=== PATIENT | female | born 1940 | race Caucasian/White ===

== ENCOUNTER 2017-05-10 07:22 | Inpatient (IN) ==
--- NOTE | 2017-05-10 07:32 | Emergency Department Report ---
Fall HPI - General Chief Complaint: Fall Stated Complaint: fell,left leg injury,seizure Time Seen by Provider: 05/10/17 07:32 Source: patient, EMS Mode of arrival: EMS - History of Present Illness HPI Narrative: Patient is a 76-year-old female from [place]. Patient is out visiting, this morning as patient was trying to get out of the shower patient slipped and fell, unsure if she hit her head. Family states that she might a possibly had a seizure at that point. Patient complaining of left femur pain EMS was called , patient alert and oriented on their arrival, brought to the emergency department. In the emergency Department patient was found to have oxygen saturations at 86%, does have some bilateral pitting edema of her legs. Patient states that she is normally supposed to take 40 of Lasix, however 2 weeks ago she turned herself down to 20 of Lasix because she "didn't like the way she felt". Patient placed on 2 L by nasal cannula, brought here for evaluation and treatment. MD complaint: fall Onset (ago): hour(s) Fall from: standing Fall witnessed: no Prolonged down time: unclear Context: tripped/slipped Associated symptoms (after fall): shortness of breath - Related Data Home Medications Medication Instructions Recorded Confirmed Levothyroxine Sodium 50 mcg PO DAILY 05/10/17 05/15/17 Losartan [Cozaar] 100 mg PO DAILY 05/10/17 05/15/17 Omeprazole [Prilosec] 20 mg PO DAILY 05/10/17 05/15/17 Verapamil HCl [Verapamil ER Pm] 300 mg PO HS 05/10/17 05/15/17 Previous Rx's Medication Instructions Recorded Acetaminophen [Tylenol] 650 mg PO Q5H PRN tablet 05/15/17 Bisacodyl Supp [Dulcolax] 10 mg RECTALLY DAILY PRN supp 05/15/17 Hydrocodone/APAP 7.5/325 [[place] 1 - 2 tab PO Q6H PRN tablet 05/15/17 7.5/325] Senna + Docusate [Senna Plus 1 tab PO BID tablet 05/15/17 Tablet] Acetaminophen [Tylenol] 650 mg PO Q5H PRN tablet 05/29/17 Cholestyramine/Aspartame 4 g PO Q6H PRN powd.pack 05/29/17 [Cholestyramine Light Packet] Enoxaparin Sodium [Lovenox] 40 mg SQ Q24H 14 Days #0 syringe 05/29/17 Furosemide [Lasix] 40 mg PO DAILY tablet 05/29/17 Hydrocodone/APAP 5/325 [[place] 1 tab PO Q4H PRN #30 tablet 05/29/17 5/325] Milk of Magnesia [Mom] 30 ml PO DAILY PRN udc 05/29/17 Potassium Chloride [K-Dur] 20 meq PO BIDWM tablet 05/29/17 Allergies Allergy/AdvReac Type Severity Reaction Status Date / Time amoxicillin Allergy Rash Verified 05/10/17 07:26 Sulfa (Sulfonamide Allergy Rash Verified 05/10/17 07:26 Antibiotics) Iodinated Contrast- Oral and AdvReac Unknown Nausea and Verified 05/10/17 09:18 IV Dye Vomiting Review of Systems Constitutional: Denies: fever, chills, weakness ENT: Denies: ear pain, throat pain Cardiovascular: Reports: dyspnea on exertion. Denies: chest pain, palpitations Respiratory: Denies: cough, dyspnea, wheezes Gastrointestinal: Denies: abdominal pain, nausea, vomiting Neurological: Reports: weakness (generalized nonspecific). Denies: headache PFSH Patient Stated Medical History Hypertension Yes Other GI Yes: DIVERTICULITIS Shingles Yes Post Menopausal Yes Clinic Medical History (Last Updated 06/08/17 @ 09:50 by Wally Syed Vikash) GERD (gastroesophageal reflux disease) (Acute Medical) Hypothyroidism (Acute Medical) Hypertension (Acute Medical) - Social History Smoking status: Never smoker Substance use type: does not use Alcohol intake frequency: does not drink Physical Exam - Limitations Limitations: no limitations - General General appearance: alert, in no apparent distress - Head Head exam: normocephalic, normal inspection - Eye Eye exam: Present: PERRL, EOMI - ENT ENT exam: Present: normal oropharynx, mucous membranes moist - Neck Neck exam: Present: full ROM, trachea midline - Chest Chest inspection: Present: symmetric chest wall rise. Absent: tenderness - Respiratory Respiratory exam: Present: normal lung sounds bilaterally. Absent: respiratory distress, wheezes, stridor - Cardiovascular Cardiovascular exam: Present: regular rate, normal rhythm, normal heart sounds, other (2+ bilateral pitting edema) - Abdominal Exam Abdominal exam: Present: soft. Absent: distention, tenderness - Expanded Lower Extremity Exam Hip/Pelvis exam: Present: pelvis stable. Absent: tenderness, ecchymosis, deformity, crepitus Upper leg exam: Present: tenderness. Absent: swelling, abrasion, laceration, ecchymosis, deformity Knee exam: Absent: tenderness, swelling, abrasion, laceration, ecchymosis, deformity Lower leg exam: Present: full ROM. Absent: tenderness, abrasion, laceration, ecchymosis Ankle exam: Absent: tenderness, swelling, abrasion, laceration, ecchymosis Neurovascular/Tendon exam: Present: normal capillary refill - Skin Skin exam: Present: warm, dry - Neurological Exam Neurological exam: Present: alert, oriented X3 - Psychiatric Psychiatric exam: Present: normal affect, normal mood Course Vital Signs Temperature 98.2 F 05/10/17 07:22 Pulse Rate 88 05/10/17 07:22 Respiratory Rate 16 05/10/17 07:22 Blood Pressure 195/84 H 05/10/17 07:22 Pulse Oximetry 86 L 05/10/17 07:22 Temperature 98.9 F 05/15/17 12:00 Pulse Rate 73 05/15/17 12:00 Respiratory Rate 18 05/15/17 12:00 Blood Pressure 172/84 H 05/15/17 12:00 Pulse Oximetry 93 05/15/17 12:00 Fall - Differential Diagnosis Likely: syncope, compression fracture - Medical Records Attestation: I reviewed the patient's medical records. - Lab Data Attestation: I reviewed the patient's lab results. Result diagrams: 05/15/17 04:51 05/15/17 04:51 Lab Results 05/10/17 05/10/17 05/10/17 Range/Units 07:36 07:36 07:36 WBC 16.0 H (4.5-11.0) T/MM3 RBC 3.63 L (4.00-5.20) M/MM3 Hgb 11.0 L (12-16) GM/DL Hct 32.7 L (36-46) % MCV 90.1 (80-100) UM3 MCH 30.3 (26-34) UUG MCHC 33.6 (31-37) GM/DL RDW Std Deviation 43.9 (36.9-50.2) FL Plt Count 207 (130-400) T/MM3 MPV 10.3 (9.4-12.4) UM3 Immature Gran % (Auto) Not performed Neut % (Auto) Not performed Lymph % (Auto) Not performed [place] % (Auto) Not performed Eos % (Auto) Not performed Baso % (Auto) Not performed Neut # Not performed Lymph # Not performed [place] # Not performed Eos # Not performed Baso # Not performed Abs Immat Gran (auto) Not performed Neutrophils % (Manual) 90.0 H (33-66) % Band Neutrophils % 2.0 (0-6) % Lymphocytes % (Manual) 1.0 L (23-45) % Monocytes % (Manual) 7.0 (0-9.0) % Neutrophils # (Manual) 14.4 H (1.8-7.7) T/MM3 Band Neutrophils # 0.3 T/MM3 Lymphocytes # (Manual) 0.2 L (1-4.8) T/MM3 Monocytes # (Manual) 1.1 H (0-0.8) T/MM3 Poikilocytosis 1+ Anisocytosis 1+ Ovalocytes 1+ RBC Morph Comment Abnormal D-Dimer 53307 H (0-230) NG/ML Turbidity < 20 (0-20) Sodium 128 L (134-144) MEQ/L Potassium 4.4 (3.6-5) MEQ/L Chloride 91 L (98-107) MEQ/L Carbon Dioxide 27 (22-30) MEQ/L Anion Gap 10 (5-15) MEQ/L BUN 17.0 (7-17) MG/DL Creatinine 0.9 (0.7-1.2) MG/DL GFR Calculation 61 BUN/Creatinine Ratio 19 (6-26) RATIO Glucose 124 H (65-110) MG/DL Calculated Osmolality 250 L (261-280) MOSM/KG Calcium 9.8 (8.4-10.2) MG/DL Total Bilirubin 1.30 (0.20-1.30) MG/DL Icterus Index < 2 (0-7) AST 32 (14-36) U/L ALT 32 (9-52) U/L Alkaline Phosphatase 114 (38-126) U/L Troponin I < 0.012 (0-0.12) ng/ml B-Natriuretic Peptide (0-175) pg/mL Total Protein 7.4 (6.3-8.2) G/DL Albumin 4.4 (3.5-5.0) G/DL Globulin 3.0 (2.4-3.6) G/DL Albumin/Globulin Ratio 1.5 (1.1-2.2) RATIO Plasma Lactate (0.6-2.2) MMOL/L Procalcitonin NG/ML Specimen Hemolysis 83 H (0-25) Ur Collection Type Urine Color (YELLOW) Urine Clarity Urine pH (5.0-8.0) Ur Specific [place] (1.015-1.025) Urine Protein (NEGATIVE) Urine Glucose (UA) (NEGATIVE) Urine Ketones (NEGATIVE) Urine Occult Blood (NEGATIVE) Urine Nitrate (NEGATIVE) Urine Bilirubin (NEGATIVE) Urine Urobilinogen (NORMAL) EU/DL Ur Leukocyte Esterase (NEGATIVE) Urine RBC (0-3) /HPF Urine WBC (0-5) /HPF Ur Squamous Epith Cells Urine Bacteria (NEGATIVE) Ur Culture Indicated? 05/10/17 05/10/17 05/10/17 Range/Units 07:36 08:45 11:03 WBC (4.5-11.0) T/MM3 RBC (4.00-5.20) M/MM3 Hgb (12-16) GM/DL Hct (36-46) % MCV (80-100) UM3 MCH (26-34) UUG MCHC (31-37) GM/DL RDW Std Deviation (36.9-50.2) FL Plt Count (130-400) T/MM3 MPV (9.4-12.4) UM3 Immature Gran % (Auto) Neut % (Auto) Lymph % (Auto) [place] % (Auto) Eos % (Auto) Baso % (Auto) Neut # Lymph # [place] # Eos # Baso # Abs Immat Gran (auto) Neutrophils % (Manual) (33-66) % Band Neutrophils % (0-6) % Lymphocytes % (Manual) (23-45) % Monocytes % (Manual) (0-9.0) % Neutrophils # (Manual) (1.8-7.7) T/MM3 Band Neutrophils # T/MM3 Lymphocytes # (Manual) (1-4.8) T/MM3 Monocytes # (Manual) (0-0.8) T/MM3 Poikilocytosis Anisocytosis Ovalocytes RBC Morph Comment D-Dimer (0-230) NG/ML Turbidity (0-20) Sodium (134-144) MEQ/L Potassium (3.6-5) MEQ/L Chloride (98-107) MEQ/L Carbon Dioxide (22-30) MEQ/L Anion Gap (5-15) MEQ/L BUN (7-17) MG/DL Creatinine (0.7-1.2) MG/DL GFR Calculation BUN/Creatinine Ratio (6-26) RATIO Glucose (65-110) MG/DL Calculated Osmolality (261-280) MOSM/KG Calcium (8.4-10.2) MG/DL Total Bilirubin (0.20-1.30) MG/DL Icterus Index (0-7) AST (14-36) U/L ALT (9-52) U/L Alkaline Phosphatase (38-126) U/L Troponin I (0-0.12) ng/ml B-Natriuretic Peptide 755 H (0-175) pg/mL Total Protein (6.3-8.2) G/DL Albumin (3.5-5.0) G/DL Globulin (2.4-3.6) G/DL Albumin/Globulin Ratio (1.1-2.2) RATIO Plasma Lactate 1.3 (0.6-2.2) MMOL/L Procalcitonin NG/ML Specimen Hemolysis (0-25) Ur Collection Type Urine, clean catch Urine Color Yellow (YELLOW) Urine Clarity Clear Urine pH 7.0 (5.0-8.0) Ur Specific [place] 1.010 L (1.015-1.025) Urine Protein 1+ A (NEGATIVE) Urine Glucose (UA) Negative (NEGATIVE) Urine Ketones Negative (NEGATIVE) Urine Occult Blood 1+ A (NEGATIVE) Urine Nitrate Positive A (NEGATIVE) Urine Bilirubin Negative (NEGATIVE) Urine Urobilinogen 0.2 (NORMAL) EU/DL Ur Leukocyte Esterase Negative (NEGATIVE) Urine RBC None seen (0-3) /HPF Urine WBC 0-1 (0-5) /HPF Ur Squamous Epith Cells 0-5 Urine Bacteria 3+ H (NEGATIVE) Ur Culture Indicated? Cult reflexed &setup 05/10/17 Range/Units 11:03 WBC (4.5-11.0) T/MM3 RBC (4.00-5.20) M/MM3 Hgb (12-16) GM/DL Hct (36-46) % MCV (80-100) UM3 MCH (26-34) UUG MCHC (31-37) GM/DL RDW Std Deviation (36.9-50.2) FL Plt Count (130-400) T/MM3 MPV (9.4-12.4) UM3 Immature Gran % (Auto) Neut % (Auto) Lymph % (Auto) [place] % (Auto) Eos % (Auto) Baso % (Auto) Neut # Lymph # [place] # Eos # Baso # Abs Immat Gran (auto) Neutrophils % (Manual) (33-66) % Band Neutrophils % (0-6) % Lymphocytes % (Manual) (23-45) % Monocytes % (Manual) (0-9.0) % Neutrophils # (Manual) (1.8-7.7) T/MM3 Band Neutrophils # T/MM3 Lymphocytes # (Manual) (1-4.8) T/MM3 Monocytes # (Manual) (0-0.8) T/MM3 Poikilocytosis Anisocytosis Ovalocytes RBC Morph Comment D-Dimer (0-230) NG/ML Turbidity (0-20) Sodium (134-144) MEQ/L Potassium (3.6-5) MEQ/L Chloride (98-107) MEQ/L Carbon Dioxide (22-30) MEQ/L Anion Gap (5-15) MEQ/L BUN (7-17) MG/DL Creatinine (0.7-1.2) MG/DL GFR Calculation BUN/Creatinine Ratio (6-26) RATIO Glucose (65-110) MG/DL Calculated Osmolality (261-280) MOSM/KG Calcium (8.4-10.2) MG/DL Total Bilirubin (0.20-1.30) MG/DL Icterus Index (0-7) AST (14-36) U/L ALT (9-52) U/L Alkaline Phosphatase (38-126) U/L Troponin I (0-0.12) ng/ml B-Natriuretic Peptide (0-175) pg/mL Total Protein (6.3-8.2) G/DL Albumin (3.5-5.0) G/DL Globulin (2.4-3.6) G/DL Albumin/Globulin Ratio (1.1-2.2) RATIO Plasma Lactate (0.6-2.2) MMOL/L Procalcitonin < 0.05 NG/ML Specimen Hemolysis (0-25) Ur Collection Type Urine Color (YELLOW) Urine Clarity Urine pH (5.0-8.0) Ur Specific [place] (1.015-1.025) Urine Protein (NEGATIVE) Urine Glucose (UA) (NEGATIVE) Urine Ketones (NEGATIVE) Urine Occult Blood (NEGATIVE) Urine Nitrate (NEGATIVE) Urine Bilirubin (NEGATIVE) Urine Urobilinogen (NORMAL) EU/DL Ur Leukocyte Esterase (NEGATIVE) Urine RBC (0-3) /HPF Urine WBC (0-5) /HPF Ur Squamous Epith Cells Urine Bacteria (NEGATIVE) Ur Culture Indicated? - Radiology Data Attestation: I reviewed the patient's radiology results. X-ray left femur: No acute fractures X-ray left knee: Tibial plateau fracture X-ray left tib-fib: Tibial plateau fracture CT scan head: No acute intracranial findings CT PE: No acute findings - EKG Data EKG #1 EKG attestation: Yes: I reviewed and interpreted this EKG. Rate: normal Rhythm: NSR Heart block present: 1st Degree Interpretation: no acute changes Disposition Clinical Impression: Compression fracture Disposition: 02 To [facility] [place] Acute Care Condition: Stable - Seen By: physician
[2017-05-10] MEDS ORDERED: FUROSEMIDE 20 MG/2 ML INJECTION IVP ONE (07:35)
--- NOTE | 2017-05-10 07:55 | CT Scan Report ---
Indication: fall, possible seizure PROCEDURE: CT head/brain wo con: Encounter: Initial Comparison: None Technique: Axial CT images through the head were performed without contrast. Iterative Reconstruction dose reducing technique was utilized. FINDINGS: The ventricles are of normal size, shape, and contour for the patient's age. There are scattered areas of low attenuation in the white matter which most likely represent changes from chronic microvascular ischemia. The brainstem, cerebellum, and cerebral hemispheres otherwise have a normal morphology and CT attenuation. There is no evidence of midline displacement. No hemorrhage, signs of acute territorial stroke, mass effect, mass lesions, or edema is evident. The visualized portions of the skull base, midface, and calvarium demonstrate no abnormality. The paranasal sinuses are well aerated and free of significant disease. The tympanic and mastoid cavities appear normal. IMPRESSION: No acute intracranial abnormality or hemorrhage. .
--- NOTE | 2017-05-10 07:58 | XRay Report ---
Indication: shortness of air, fall, oxygen requiring now PROCEDURE: XR chest 1V: Encounter: Initial Comparison: None Findings: Linear atelectasis or scarring in the left upper lobe. Lung ortez are otherwise clear. No pleural effusion or pneumothorax. Cardiac silhouette is at the upper limits of normal to mildly enlarged. Mediastinal contours are grossly normal. Impression: No acute cardiopulmonary disease. .
--- NOTE | 2017-05-10 08:05 | XRay Report ---
Indication: fall, left femur pain PROCEDURE: AP and Lateral views of the Left Femur Encounter: Initial Comparison: None Findings: Mildly depressed fracture of the lateral tibial plateau. No acute fracture seen in the femur. Total hip prosthesis appears intact. Impression: Closed posttraumatic lateral tibial plateau fracture. .
[2017-05-10] MEDS: SALINE FLUSH 10ml SYRINGE IVF PRN ×6 (08:06→21:54)
--- NOTE | 2017-05-10 08:12 | XRay Report ---
Indication: fall left tib-fib pain PROCEDURE: XR tib/fib LT 2V: Encounter: Initial Comparison: None Findings: Depressed fracture of the lateral tibial plateau. No additional acute fracture. Evidence of old distal trauma with healed fibular fracture and internally fixed medial malleolar fracture. Impression: Lateral tibial plateau fracture. .
[2017-05-10] MEDS ORDERED: FentaNYL 100 MCG/2 ML INJECTION IVP ONE (08:14)
[2017-05-10] MEDS ORDERED: HYDRALAZINE 20 MG/ML INJECTION IVP ONE (08:48)
[2017-05-10] MEDS ORDERED: NS 100 ML ONE (09:00)
[2017-05-10] MEDS ORDERED: IOHEXOL 350mg/ml 75ml INJECTION ONE (09:00)
[2017-05-10] MEDS ORDERED: SALINE FLUSH 10ml SYRINGE ONE (09:00)
[2017-05-10] MEDS ORDERED: ONDANSETRON 4 MG/2 ML INJECTION IV ONE (09:19)
[2017-05-10] MEDS ORDERED: PROMETHAZINE 25 MG INJECTION IVP ONE (09:19)
--- NOTE | 2017-05-10 10:07 | CT Scan Report ---
Indication: tibial plateau fracture, requested by orthopedist PROCEDURE: CT LE LT wo con: Encounter: Initial Comparison: None Technique: Axial noncontrast CT imaging through the left knee region was performed with coronal and sagittal two-dimensional reformats. Three-dimensional surface shaded volume rendered imaging was also created and reviewed. Automated Exposure Control and Iterative Reconstruction dose reducing techniques were utilized. Findings: Depressed fracture of the lateral tibial plateau with approximately 8 mm of articular surface depression. 3 mm articular surface gap seen on coronal image #21. There is a fracture line extending through the medial tibial spine seen on coronal image #26. No additional acute fractures seen. No dislocation. Mild bony demineralization. Joint effusion present. Impression: Depressed lateral tibial plateau fracture with extension into the tibial spines. .
--- NOTE | 2017-05-10 10:07 | XRay Report ---
Indication: fall, tibial plateau fracture request by orthopedic PROCEDURE: XR knee LT 2V: Encounter: Initial Comparison: CT of the knee from today Findings: Depressed lateral tibial plateau fracture is again noted. There is a nondisplaced fracture line extending into the medial tibial spine also noted. Moderate medial compartment joint space narrowing. Joint effusion present. Arterial vascular calcifications. Impression: Closed posttraumatic tibial plateau fracture predominantly involving the lateral side. .
--- NOTE | 2017-05-10 10:10 | CT Scan Report ---
Indication: d-dimer 55K, shortness of air on oxygen PROCEDURE: CT angio pulm emboli: Encounter: Initial Comparison: None Technique: Axial CT pulmonary angiographic phase images were performed through the chest after the administration of intravenous contrast. Coronal and Sagittal MIP reconstructed images were created and reviewed. Automated Exposure Control and Iterative Reconstruction dose reducing techniques were utilized. Contrast: Omnipaque 350 74 mL Findings: Pulmonary arteries: Exam is diagnostic to the segmental pulmonary arterial level. No filling defects identified to suggest a pulmonary embolus. Subsegmental pulmonary arteries cannot be well evaluated due to bolus timing and motion artifact. Other findings: No pneumothorax. Mild medial right lower lobe atelectasis. Trace left basilar atelectasis. No focal pneumonia. Significant respiratory motion artifact limiting sensitivity. The central airways are grossly patent. No axillary or mediastinal adenopathy. Heart size is mildly enlarged without pericardial effusion. Moderate sized hiatal hernia. Upper abdomen shows no acute findings. Moderate to severe mid thoracic compression fracture of T7 could be a recent fracture given the presence of gas within the fracture cleft. Impression: 1. No pulmonary embolus. 2. Possibly recent T7 compression fracture. .
--- NOTE | 2017-05-10 11:30 | Orthopedic Consult Note ---
Orthopedic Consultation HPI - Consultation Info Consult Date: 05/10/17 [facility] Patient Stated Medical History Hypertension Yes Other GI Yes: DIVERTICULITIS Shingles Yes Post Menopausal Yes - Social History Smoking status: Never smoker Medications Home Medications Medication Instructions Recorded Confirmed Type Furosemide [Lasix] 20 mg PO DAILY 05/10/17 05/10/17 History Levothyroxine Sodium 20 mcg PO DAILY 05/10/17 05/10/17 History Losartan [Cozaar] 100 mg PO DAILY 05/10/17 05/10/17 History Omeprazole [Prilosec] 20 mg PO DAILY 05/10/17 05/10/17 History Potassium Chloride [K-Dur] 10 meq PO DAILY 05/10/17 05/10/17 History Verapamil HCl [Verapamil ER Pm] 300 mg PO HS 05/10/17 05/10/17 History Allergies Allergy/AdvReac Type Severity Reaction Status Date / Time amoxicillin Allergy Rash Verified 05/10/17 07:26 Sulfa (Sulfonamide Allergy Rash Verified 05/10/17 07:26 Antibiotics) Iodinated Contrast- Oral and AdvReac Unknown Nausea and Verified 05/10/17 09:18 IV Dye Vomiting Orthopedic Exam Vital signs: Temperature 98.2 F 05/10/17 09:00 Pulse Rate 98 05/10/17 10:15 Respiratory Rate 51 H 05/10/17 10:15 Blood Pressure 154/105 H 05/10/17 10:07 Pulse Oximetry 94 05/10/17 10:07 - Labs Result Diagrams: 05/10/17 07:36 05/10/17 07:36 Abnormal lab results 05/10/17 05/10/17 05/10/17 Range/Units 07:36 07:36 07:36 WBC 16.0 H (4.5-11.0) T/MM3 RBC 3.63 L (4.00-5.20) M/MM3 Hgb 11.0 L (12-16) GM/DL Hct 32.7 L (36-46) % Neutrophils % (Manual) 90.0 H (33-66) % Lymphocytes % (Manual) 1.0 L (23-45) % Neutrophils # (Manual) 14.4 H (1.8-7.7) T/MM3 Lymphocytes # (Manual) 0.2 L (1-4.8) T/MM3 Monocytes # (Manual) 1.1 H (0-0.8) T/MM3 D-Dimer 15871 H (0-230) NG/ML Sodium 128 L (134-144) MEQ/L Chloride 91 L (98-107) MEQ/L Glucose 124 H (65-110) MG/DL Calculated Osmolality 250 L (261-280) MOSM/KG B-Natriuretic Peptide (0-175) pg/mL Specimen Hemolysis 83 H (0-25) Ur Specific [place] (1.015-1.025) Urine Protein (NEGATIVE) Urine Occult Blood (NEGATIVE) Urine Nitrate (NEGATIVE) Urine Bacteria (NEGATIVE) 05/10/17 05/10/17 Range/Units 07:36 08:45 WBC (4.5-11.0) T/MM3 RBC (4.00-5.20) M/MM3 Hgb (12-16) GM/DL Hct (36-46) % Neutrophils % (Manual) (33-66) % Lymphocytes % (Manual) (23-45) % Neutrophils # (Manual) (1.8-7.7) T/MM3 Lymphocytes # (Manual) (1-4.8) T/MM3 Monocytes # (Manual) (0-0.8) T/MM3 D-Dimer (0-230) NG/ML Sodium (134-144) MEQ/L Chloride (98-107) MEQ/L Glucose (65-110) MG/DL Calculated Osmolality (261-280) MOSM/KG B-Natriuretic Peptide 755 H (0-175) pg/mL Specimen Hemolysis (0-25) Ur Specific [place] 1.010 L (1.015-1.025) Urine Protein 1+ A (NEGATIVE) Urine Occult Blood 1+ A (NEGATIVE) Urine Nitrate Positive A (NEGATIVE) Urine Bacteria 3+ H (NEGATIVE) H & H 05/10/17 Range/Units 07:36 Hgb 11.0 L (12-16) GM/DL Hct 32.7 L (36-46) % Hospital Course Summary Disclaimer: The visit summary below is not to be considered part of the above Progress Note.
[2017-05-10 11:39] VITALS: BMI 34.2
[2017-05-10] MEDS ORDERED: NS FLUSH BAG 500ml IV PRN (11:55)
[2017-05-10] MEDS: MORPHINE SULFATE 4 MG SYRINGE IVP PRN ×3 (11:56→21:54)
[2017-05-10] MEDS: LEVOFLOXACIN PB 500 MG/100 ML BAG IV SCH (11:57)
--- NOTE | 2017-05-10 12:43 | Consultation ---
DATE OF CONSULTATION 05/10/[address] Ortega CONSULTING PHYS[address] Dr. Sylvester Mandel DIAGNOSIS 1. Closed left Schatzker II lateral tibial plateau fracture. 2. T7 compression fracture, age indeterminate. 3. Urinary tract infection with leukocytosis. RECOMMENDATIONS I carefully discussed the findings today with both the patient and her who is at the bedside. They are planning on leaving the area to return home to [place], [place] early next week. They were planning to go to [place] but they think they would like to proceed home as she will need continued care. We carefully discussed that her tibial plateau fracture is indicated for surgery given the amount of depression of the joint surface of the lateral compartment. She does have preexisting osteoarthritis of the left knee, however , this amount of depression would likely lead to instability and I do feel this needs to be fixed. They are uncertain if they would like to have surgery here or wait to get home to her orthopedic surgeon back in [place]. I did tell them if they wish to have this fixed elsewhere, they should forego their trip to [place] and proceed directly home once she is medically stable. We did discuss the benefits and the other factors associated with having surgery here versus back home. Certainly followup for the surgery would need to be arranged for back home whether we did surgery here or she waited to go back home. Regardless she would be nonweightbearing on the left lower extremity with or without surgery. Her initial inclination is she would prefer to have surgery back home but they are going to wait and see how she does clearing medically. Dr. Ortega anticipates this may take 2-3 days for her to get cleared medically. If she were cleared for surgery at that time, she would likely have an additional 2-3 day stay postoperatively. We did discuss general risks of surgery including anesthetic, risk of infection, risk of DVT, risk of continued pain and decreased mobility and others. They are going to continue to wait and see how she does medically and later determine whether they would like to have surgery here or just return home for this. In the interim, I did recommend placing her in a knee immobilizer. Recommend using LISSETTE hose and SCDs for DVT prevention. I am okay with Lovenox and utilization as well. She is to be nonweightbearing on her left lower extremity. Recommend ice to the knee. Regarding her T7 compression fracture, on exam she really has no tenderness and no pain with flexion through the spine. My inclination is this is possibly an old fracture but it is quite moderate to severe on her CT scan. If she begins to experience more back pain, would recommend further imaging. Consideration could be made for a bone scan to a help determine acuity, if not an MRI, and at the minimum plain T and L films. Recommend continuing with pain management for her fracture. She also has fairly significant edema and will likely be diuresed by the medical team. Will plan to follow along closely with the patient as she tries to determine how she would like to proceed with surgery, either here or back home. HISTORY OF PRESENT ILLNESS Mrs. Rodríguez is a very pleasant 76-year-old female who primarily resides in the [place], [place] area. They had traveled to [place], [place] where they "snowbird" and had been there since April 08. They then flew to the [facility] on May 09. They were staying at [place] [facility] as they were visiting some friends. She states she had been feeling fine. She had recently halved her dose of Lasix because she "didn't like the way it was making her feel". She had noted increased bilateral leg edema during this time . This morning she was getting out of the shower and stepped onto a wet floor. She states she slipped and fell down and had immediate onset of left leg pain. Her came in and witnessed her in what he described as almost seizure-like activity as she became somewhat rigid and postured. The patient denies any loss of consciousness herself but the thinks that she may have. There is no visible head trauma. She complains of no headache or problems. She was unable to weightbear and was subsequently brought to [facility]. She was noted to have low oxygen saturation. A D-dimer was ordered and found to be 54,000+. It was elected to evaluate her for a pulmonary embolus. CT angiogram was found to be negative for pulmonary embolus , however, there was noted to be this moderate to severe T7 compression fracture that was read as possibly acute given some gas amongst the fracture fragments. Again the patient is complaining of no lower extremity issues. No numbness or tingling but does complain of left knee pain. The patient is one year status post left total hip arthroplasty. She has previously had a right total hip arthroplasty as well and also an open reduction internal fixation of her left ankle. She has otherwise been ambulating fairly normally and having no other complaints or issues. Further workup did show a leukocytosis with an elevated white count of 16. She was also found to have a urinary tract infection with 3+ bacteria. Cultures were being obtained as well. She was started on Levaquin for this. Regarding the knee, the patient complains of primarily global knee pain though it is more localized laterally. She denies any significant prior knee pain but notes that both knees ache on occasion. It is an aching, throbbing type pain. It is sharp with any motion of the knee. She denies hip or pelvic pain. Denies contralateral leg pain. As mentioned, pain is exacerbated with motion and any weightbearing through the knee on the left side. She has been given pain medicine at the direction of Dr. Castillo in the ER. REVIEW OF SYSTEMS CONSTITUTIONAL: Denies chills, nausea, vomiting, recent fevers, night sweats or weight loss. EENT: Denies any change in vision. No blurred vision. No pain or photophobia. Ear, nose, mouth and throat: Denies headaches, vertigo, lightheadedness, head injury. CARDIOVASCULAR: Denies chest pain, palpitations, syncopal episodes. Positive for bilateral leg and pedal edema. RESPIRATORY: Denies recent cough, dyspnea, wheezing, chest congestion. GI: Does have a history of diverticulitis which is relatively well-controlled. Also history of gastroesophageal reflux disease. No change in bowel habits. No diarrhea or constipation. : Denies any recent dysuria, increased frequency. MUSCULOSKELETAL: As per HPI. SKIN: All surgical incisions are well healed. No active wounds. No rash. NEUROLOGIC: No recent numbness or tingling. No paresthesias or radicular pain. Questionable seizure activity after a fall today though no prior history of seizure activity. No abnormal gait. PSYCHIATRIC: Denies anxiety, depression. ENDOCRINE: No abnormal cold intolerance or heat intolerance. HEMATOLOGIC: No easy bleeding or bruising. Patient is not on anticoagulants. PAST MEDICAL HISTORY Hypertension. Diverticulitis. Gastroesophageal reflux disease. Osteoarthritis. MEDICATIONS Reviewed and the EMR. HOME MEDICATIONS Omeprazole. Losartan. Verapamil. Potassium . Levothyroxine. Furosemide. ALLERGIES AMOXICILLIN, SULFA, IODINATED CONTRAST. SURGICAL HISTORY Known is bilateral total hip arthroplasty and left ankle ORIF. SOCIAL HISTORY Patient is a nonsmoker, nondrinker. Denies illicit drug use. 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 Calls [place], [place] her home though also spends time in [place], [place]. PHYSICAL EXAMINATION VITAL SIGNS: Blood pressure 217/142. Pulse 83. O2 sat 86% on 2 liters nasal cannula. CONSTITUTIONAL: Patient is an obese 76-year-old female who is in mild distress secondary to left knee pain from her fall and injury. She is able to comply with the exam. PSYCH: Patient is alert and oriented. She is not anxious or depressed. She is cooperative. SKIN: No evidence of rash or lesion. Well-healed lateral hip incisions bilaterally. Skin over the left knee is intact. Well-healed incisions over the left ankle. VASCULAR: Marked bilateral lower extremity edema with fairly severe pedal edema. No visible varicosities. Difficult to palpate dorsalis pedis or posterior tibialis pulses given her edema though does have brisk capillary refill to all digits. NEURO: The patient is sensory intact in all dermatomes of the upper and lower extremities. She is able to abduct and adduct all fingers, oppose the thumbs and was and extend the thumbs. She is able to plantar flex, dorsiflex and extend the great toes with normal strength bilaterally. MUSCULOSKELETAL: Patient rolled onto her side. Palpation of the spinous processes reveals no tenderness to palpation throughout the cervical, thoracic or lumbar spine. She has no pain with compression of the pelvis. No tenderness over the greater trochanters bilaterally. Both lower extremities show edema and skin is intact. No visible bruising. She is tender along the lateral joint line of the left knee, tender anteriorly as well. Right knee is nontender. Well-healed incisions over the hips as well as the left ankle. No tenderness about the ankles or feet. Tibial shafts are nontender. Patellae are nontender. No pain in the hips with log roll. The left knee was not stressed secondary to known fracture with depression of the lateral tibial plateau. IMAGING 1. X-rays and CT scan were obtained of the left knee. These show a Schatzker II split depression fracture with comminution of the joint space of the lateral tibial plateau, depression of approximately 6-8 mm. Fracture line extends to the tibial eminence though it is nondisplaced. No evidence of medial sided fracture. Note is made of joint space narrowing in medial compartment with osteophytosis, subchondral sclerosis and cystic change compatible with primary osteoarthritis. 2. CT angiogram of the chest was obtained. Per report there is no evidence of pulmonary embolus. Note is made of a moderate to severe compression fracture of the T7 vertebral body, stated that it could be a recent fracture given presence of "gas within the fracture cleft". 3. Left femur x-rays show no evidence of fracture or dislocation, well-fixed and well seated left total hip arthroplasty is present. 4. Left tib-fib x-ray shows no evidence of tibial shaft fracture. Note is made of the aforementioned tibial plateau fracture. Medial malleolar screws are present also with a healed lateral malleolus fracture that appeared to be treated nonoperatively. LABORATORY White count 16, hemoglobin 11, hematocrit 32.7, platelets 207, neutrophil % 90, neutrophils 14.4, lymphocytes 1. D-dimer was 54,849. Chemistry: Sodium 128, potassium 4.4, chloride 91, CO2 27, BUN 17, creatinine 0.9, glucose 124. BNP 755. Urine: 1+ protein, 1+ occult blood, positive nitrate, 3+ urine bacteria. Culture was reflexed. [facility]
--- NOTE | 2017-05-10 13:13 | Ultrasound Report ---
Indication: Elevated d-dimer, evaluate for dvt PROCEDURE: US venous doppler UE BI: Encounter: Initial Comparison: None FINDINGS: There is no evidence for acute deep venous thrombosis in the either arm. The bilateral internal jugular, subclavian, axillary and paired brachial veins were evaluated; compression and augmentation were applied where possible. In addition, color and pulsed Doppler demonstrate appropriate spontaneous flow, cardiac pulsatility and variation with respiration. IMPRESSION: No evidence of acute DVT in either upper extremity. .
--- NOTE | 2017-05-10 13:13 | Ultrasound Report ---
Indication: Elevated d-dimer, evaluate for dvt PROCEDURE: US venous doppler LE BI: Encounter: Initial Comparison: None Technique: Color Doppler duplex and grayscale sonographic imaging of both lower extremities was performed. Findings: There is no evidence for acute deep venous thrombosis in either thigh. Specifically, serial graded compression was performed from the inguinal ligament to the popliteal bifurcation, bilaterally, demonstrating appropriate compressibility of the deep venous system. In addition, color and pulsed Doppler demonstrate appropriate spontaneous flow, variation with respiration, and augmentation with calf compression. At the ankle, normal flow is identified in the posterior tibial veins; these vessels are also normal in caliber. Impression: No evidence of acute DVT in either lower limb. .
--- NOTE | 2017-05-10 17:14 | History & Physical Report ---
History of Present Illness Date: 05/10/17 Chief complaint: Fall with possible LOC HPI: Pt states this AM had a fall and apparently briefly lost her consciousness, states pt had "jerky" movements and is worried about a seizure (No H.O Seizures or passing out). it is unclear if pt hit her head during the fall but a head CT did not show any bleed, or fractures. After the fall pt had pain in her LEFT knee and came to the ED and was found to have a tibial fracture. CT "......................... Impression: Depressed lateral tibial plateau fracture with extension into the tibial spines. ..............................." Pt was evaluated in the ED by Dr Mandel and was inmobilized. Pt also was found to have a UTI. She was admitted for medical stabilization and then surgery - she is debating if she should have surgery here in [facility] or go back to [facility] for surgery. Pt states she takes Lasix for blood pressure control and had reduced recently her dose as she was in a road trip. She denies having CHF, FL, CAD, CABG or having any stents. Review of Systems Comprehensive ROS: completed and no additional positive findings except those as stated PFSH Patient Stated Medical History Migraine Yes: at times Hypertension Yes Other GI Yes: DIVERTICULITIS Hx Urinary Tract Infection Yes: current Shingles Yes Post Menopausal Yes Surgical History: Pt states she's had a repair of a fractured ankle, a previous hip replacement and a cystocele repair. - Social History Smoking status: Never smoker Substance use type: does not use Alcohol intake frequency: does not drink Household members: spouse service: No Current occupational status: retired Current residence: Apartment/Private Home Medications Home Medications Medication Instructions Recorded Confirmed Type Furosemide [Lasix] 20 mg PO DAILY 05/10/17 05/10/17 History Levothyroxine Sodium 20 mcg PO DAILY 05/10/17 05/10/17 History Losartan [Cozaar] 100 mg PO DAILY 05/10/17 05/10/17 History Omeprazole [Prilosec] 20 mg PO DAILY 05/10/17 05/10/17 History Potassium Chloride [K-Dur] 10 meq PO DAILY 05/10/17 05/10/17 History Verapamil HCl [Verapamil ER Pm] 300 mg PO HS 05/10/17 05/10/17 History Allergies Allergy/AdvReac Type Severity Reaction Status Date / Time amoxicillin Allergy Rash Verified 05/10/17 07:26 Sulfa (Sulfonamide Allergy Rash Verified 05/10/17 07:26 Antibiotics) Iodinated Contrast- Oral and AdvReac Unknown Nausea and Verified 05/10/17 09:18 IV Dye Vomiting Exam Vital Signs: Temperature 97.1 F 05/10/17 15:15 Pulse Rate 84 05/10/17 15:15 Respiratory Rate 16 05/10/17 15:15 Blood Pressure 135/73 05/10/17 15:15 Pulse Oximetry 95 05/10/17 15:15 Telemetry Rhythm: Sinus Rhythm Height/Weight/BMI: Height 5 ft 4 in Weight 90.6 kg Body Mass Index 34.2 - Constitutional Present: mild distress - Routine HEENT Exam Head: Present: normocephalic, atraumatic Eye: Present: EOMI, PERRL - Routine Neck Exam Present: supple. Absent: JVD, carotid bruit - Routine Chest/Breast/Axilla Exam Chest wall: Absent: tenderness, mass - Routine Respiratory Exam Present: CTA bilaterally, diminished air movement - Routine Cardiovascular Exam Present: RRR, S1, S2 - Routine Abdominal Exam Present: soft, non distended, non tender - Routine Extremities Exam Absent: cyanosis, clubbing, edema - Routine Neurological Exam Present: alert, oriented X3, CN II-XII intact, moving all extremities - Routine Psychiatric Exam Present: normal affect, cooperative, good insight, good judgment Results - Labs CBC & Chem 7: 05/10/17 07:36 05/10/17 07:36 - Echocardiogram Echocardiogram: EKG shows NSR with voltage criteria for LVH, no ST elevation or depression to suspect ACS/FL Assessment and Plan DVT Prophylaxis: Lovenox GI Prophylaxis: Protonix Resuscitation Status: Full Code Assessment and Plan: SUMMARY - This is a 76 YO female with H.O HTN, that presented to the ED with a syncopal event - per description - she could have had a brief seizure but pt had no post ictal. Pt has had a previos spinal compression fracture. It appears that this fall caused her to have a tibial plateau fracture. On admission she was in distress due to pain and due to urgency (Urinary). Since admission she had a Lr catheter and was given morphine and is now very comfortable, oriented x 3 conversant, up in bed having her dinner. I have entered a request to obtain her records from [place] ([place]). Diagnosis 1) Tibial plateau fracture in a 76 YO female with possible osteoporosis - Refer to ortho evaluation - Continue immobilization - Pain management with Morphine 2) Hypertension, uncontrolled on admission now better - probably BP was high due to pain. Pt has LVH per EKG, will have to compare with older EKG. Continue with home meds and watch carefully her BP while in the hospital - Continue home medications. - Telemetry 3) UTI with Leukocytosis on admisison. - UA suggest infection, WBC very high on admission probably in part due to stress. - Culture sent - Blood cultures x 2 sent. 4) Very high D-Dimer on admission with ? of hypoxemia on admission to the ED ( Per ED MD Saturation was 86% on room air on admission) - Since pt had a syncopal event - had CTA chest - negative - Dopplers of upper and lower extremities were negative for DVT - Pt was on Lasix but had decreased dose - CXR negative for congestion. - Recheck CXR in the AM. 5) Hyponatremia on admission - Check Plasma and Urine Osm, TSH, Cortisol, Uric acid level. - Serial checks on Na - No fluid restriction yet. 6) Anemia on admission - if H.H drops further may consider working up now, otherwise can be deferred. 7) S/P Hip replacement in the past. CODE STATUS IS FULL PREVENTION PUD -PROTONIX DVT - LOVENOX - Time spent with patient greater than 35 minutes Hospital Course Summary Disclaimer: The visit summary below is not to be considered part of the above Progress Note.
[2017-05-10] MEDS: ENOXAPARIN 40 MG/0.4 ML INJECTION SQ SCH (17:49)
[2017-05-10] MEDS: PANTOPRAZOLE 40 MG INJECTION IVP SCH (17:50)
[2017-05-10] MEDS: Verapamil SR 120 MG TABLET (12Hr) PO SCH (21:55)
[2017-05-11] MEDS: MORPHINE SULFATE 4 MG SYRINGE IVP PRN ×5 (02:28→22:44)
[2017-05-11] MEDS: SALINE FLUSH 10ml SYRINGE IVF PRN ×6 (07:58→22:44)
[2017-05-11] MEDS: ENOXAPARIN 40 MG/0.4 ML INJECTION SQ SCH (08:14)
[2017-05-11] MEDS: LEVOTHYROXINE 50 MCG TABLET PO SCH (08:14)
[2017-05-11] MEDS: PANTOPRAZOLE 40 MG INJECTION IVP SCH (08:14)
[2017-05-11] MEDS: LOSARTAN 100 MG TABLET PO SCH (08:46)
[2017-05-11] MEDS: FUROSEMIDE 20 MG TABLET PO SCH (08:46)
[2017-05-11] MEDS ORDERED: OMEPRAZOLE 20 MG CAPSULE PO SCH (09:00)
[2017-05-11] MEDS: LEVOFLOXACIN PB 500 MG/100 ML BAG IV SCH (10:47)
--- NOTE | 2017-05-11 11:48 | Orthopedic Progress Note ---
Date: Subjective/Severity of Illness: Mrs. Rodríguez states she is much more comfortable today. Pain is managed with IV Morphine. Tolerating po intake well. Now on room air and saturations in the low to mid 90's. Denies nausea, vomiting. No numbness, tingling to the left lower extremity. She has been in an immobilizer with ice and elevation. DVT prophylaxis is with lovenox. She has been on bedrest. No fevers. No shortness of breath. Lr is placed. No chest pain. Denies back pain. Orthopedic Objective Vital signs: Temperature 95.1 F L 05/11/17 07:40 Pulse Rate 71 05/11/17 07:40 Respiratory Rate 18 05/11/17 07:40 Blood Pressure 138/66 05/11/17 07:40 Pulse Oximetry 96 05/11/17 07:40 Height and Weight: Height 5 ft 4 in Weight 199 lb 4.766 oz Body Mass Index 34.2 - Constitutional General Appearance: Present: alert, orientated x3, cooperative, no acute distress - Respiratory Exam Present: non-labored - Cardiovascular Exam Present: peripheral edema, pedal pulses intact Capillary Refill: < 2-3 Seconds - Abdominal Exam Present: soft. Absent: tenderness, distended - Extremities Exam Present: edema (bilateral LE edema). Absent: cyanosis, clubbing - Knee Exam left Knee Exam: Present: tender along joint line (lateral TTP), ROM (not assessed secondary to pain, known fx), effusion, painful ROM Comments: Calf is supple, non-tender. Negative Ronald's. Compartments soft, compressible. No increased pain with passive ankle/toe motion. NVI distally. Back is non-tender. Hips, pelvis non-tender. - Integumentary Exam Present: pink, warm, dry, intact - Neurological Exam Present: intact to light touch, no deficits - Psychiatric Exam Present: alert, oriented, normal affect, attentive - Labs Result Diagrams: 05/11/17 08:23 05/11/17 08:23 Abnormal lab results 05/11/17 05/11/17 Range/Units 08:23 08:23 RBC 3.53 L (4.00-5.20) M/MM3 Hgb 10.6 L (12-16) GM/DL Hct 32.0 L (36-46) % Neutrophils % (Manual) 87.0 H (33-66) % Lymphocytes % (Manual) 7.0 L (23-45) % Lymphocytes # (Manual) 0.6 L (1-4.8) T/MM3 Sodium 128 L (134-144) MEQ/L Chloride 88 L (98-107) MEQ/L BUN 20.0 H (7-17) MG/DL Calculated Osmolality 251 L (261-280) MOSM/KG B-Natriuretic Peptide 3130 H (0-175) pg/mL H & H // Range/Units 08:23 Hgb 10.6 L (12-16) GM/DL Hct 32.0 L (36-46) % Orthopedic Assessment and Plan (1) Closed fracture of lateral portion of left tibial plateau Status: Acute Qualifiers: Encounter type: subsequent encounter Assessment and Plan: The diagnosis of a Schatzker II lateral tibial plateau split/depression with pre-exisiting primary knee osteoarthritis was again reviewed with the patient and her . Options for treatment were reviewed. I do believe she should have this treated operatively to try and restore joint height with bone graft supplementation. We discussed that she will likely still have knee pain, but this would provide a stable platform should total knee arthroplasty be indicated in the future. We discussed the risks, benefits, alternatives, and potential complications, including, but not limited to: anesthesia risk, risk of infection, continued pain, loss of range of motion/mobility, neurovascular injury, bleeding, compartment syndrome, possible need for further surgery, and others. After discussing when and where to have this done, they have asked that I perform the surgery here rather than her returning to [place] for the surgery. She is understanding that she will be non-weightbearing for 6-8 weeks. Range of motion can begin post-operatively in the unloaded state. She is going to contact her orthopedic surgeon back home to arrange for follow up and therapy. We are planning for surgery tomorrow late morning. She will be npo after midnight. Consent for Open Reduction with Internal Fixation of the LEFT Lateral Tibial Plateau with allograft bone, likely crushed cancellous. Medical clearance is still pending, however, Dr. Madrigal indicated that she should be ready to go for tomorrow. WBC is normalized. Still on antibiotics for UTI. Saturations improved and now on room air. - Anticoagulation Therapy Anticoagulation: Lovenox 40 mg SQ Daily x 30 days from day of surgery (To begin post op) Hospital Course Summary Disclaimer: The visit summary below is not to be considered part of the above Progress Note.
[2017-05-11] MEDS ORDERED: FUROSEMIDE 20 MG/2 ML INJECTION IVP ONE (14:00)
[2017-05-11] MEDS ORDERED: ACETAMINOPHEN 325 MG TABLET PO PRN (16:01)
[2017-05-11] MEDS ORDERED: ONDANSETRON 4 MG/2 ML INJECTION IVP PRN (16:02)
[2017-05-11] MEDS ORDERED: BISACODYL 10 MG SUPPOSITORY RECTALLY PRN (16:02)
--- NOTE | 2017-05-11 16:26 | Progress Note ---
Subjective: F/U: Left tibial plateau fracture Doing okay-notes pain controlled with current medications. Tolerating pain meds. Breathing well-not feeling SOA or having cough/congestion. No chest pain. Denies ab pain or nausea. Tolerating Lr cath. Discussed with ortho and wishing to proceed with surgery prior to discharge to home. Would like to do any rehab needed post op closer to home. Objective Vital signs: Temperature 98.2 F 05/11/17 15:11 Pulse Rate 77 05/11/17 15:11 Respiratory Rate 16 05/11/17 15:11 Blood Pressure 130/67 05/11/17 15:11 Pulse Oximetry 91 05/11/17 15:11 Height/Weight/BMI: Height 1.63 m Weight 90.4 kg Body Mass Index 34.2 - Constitutional Present: well nourished, well developed, obese, cooperative - Routine HEENT Exam Head: Present: normocephalic, atraumatic Eye: Present: EOMI, PERRL ENT: Present: mucous membranes moist - Routine Respiratory Exam Present: CTA bilaterally. Absent: respiratory distress, rhonchi, stridor, wheezes, crackles - Routine Cardiovascular Exam Present: RRR, no murmur - Routine Abdominal Exam Present: soft, non distended, non tender. Absent: normoactive bowel sounds ( decreased bowel sounds ) - Routine Extremities Exam Present: edema (+2 BLE). Absent: cyanosis, clubbing Comments: Brace on left knee - Routine Musculoskeletal Exam Musculoskeletal: Present: no clubbing or cyanosis - Routine Skin Exam Present: intact, dry, warm - Routine Neurological Exam Present: alert, oriented X3, CN II-XII intact, moving all extremities, vision grossly intact, hearing grossly intact. Absent: motor deficit - Routine Psychiatric Exam Present: normal affect, normal thought process, cooperative, good insight, good judgment. Absent: anxious, agitated Results - Labs CBC & Chem 7: 05/11/17 08:23 05/11/17 08:23 Assessment and Plan (1) Closed fracture of lateral portion of left tibial plateau Current visit: Yes Status: Acute DVT Prophylaxis: SCD's, Lovenox Resuscitation Status: Full Code Assessment and Plan: Assessment Left tibial plateau fracture. Fall secondary to loss of footing Hyponatremia (POA) Syncopal event UTI Elevated D-Dimer HTN Hypothyroidism Anemia Obesity with BMI 34.2 [address]iscuss[address] case with Dr Mandel-anticipate surgery tomorrow. Medically stable other than serum sodium low. IV Lasix given this afternoon to help waste free water. Will repeat BMP this evening. Hold Lovenox tomorrow morning in light of surgery. Start Senna Plus routinely to decrease constipation. PRN Miralax, MOM, and Dulcolax suppositories. Initiate IS for pulmonary toilet. Continue levofloxacin for urinary coverage-check urine C/S. Continue pain control - symptoms stable at this time. Recheck BMP in am due to hyponatremia. Recheck CBC in am due to anemia. CM will help with rehab options for post surgery - hoping to have this care closer to home. Case discussed with CM and Dr Mandel. Time spent with patient care 25 minutes. - Time spent with patient 25 - 35 minutes Hospital Course Summary Disclaimer: The visit summary below is not to be considered part of the above Progress Note. Hospital Course: 05/11/17 Admission Assessment Left tibial plateau fracture. Fall secondary to loss of footing Hyponatremia (POA) Syncopal event UTI Elevated D-Dimer HTN Hypothyroidism Anemia Obesity with BMI 34.2 SUMMARY - This is a 76 YO female with H.O HTN, that presented to the ED with a syncopal event - per description - she could have had a brief seizure but pt had no post ictal. Pt has had a previos spinal compression fracture. It appears that this fall caused her to have a tibial plateau fracture. On admission she was in distress due to pain and due to urgency (Urinary). Since admission she had a Lr catheter and was given morphine and is now very comfortable, oriented x 3 conversant, up in bed having her dinner. I have entered a request to obtain her records from [place] ([place]). Diagnosis 1) Tibial plateau fracture in a 76 YO female with possible osteoporosis - Refer to ortho evaluation - Continue immobilization - Pain management with Morphine 2) Hypertension, uncontrolled on admission now better - probably BP was high due to pain. Pt has LVH per EKG, will have to compare with older EKG. Continue with home meds and watch carefully her BP while in the hospital - Continue home medications. - Telemetry 3) UTI with Leukocytosis on admisison. - UA suggest infection, WBC very high on admission probably in part due to stress. - Culture sent - Blood cultures x 2 sent. 4) Very high D-Dimer on admission with ? of hypoxemia on admission to the ED ( Per ED MD Saturation was 86% on room air on admission) - Since pt had a syncopal event - had CTA chest - negative - Dopplers of upper and lower extremities were negative for DVT - Pt was on Lasix but had decreased dose - CXR negative for congestion. - Recheck CXR in the AM. 5) Hyponatremia on admission - Check Plasma and Urine Osm, TSH, Cortisol, Uric acid level. - Serial checks on Na - No fluid restriction yet. 6) Anemia on admission - if H.H drops further may consider working up now, otherwise can be deferred. 7) S/P Hip replacement in the past. CODE STATUS IS FULL PREVENTION PUD -PROTONIX DVT - LOVENOX 05/11/[address] Mandel-anticipate surgery tomorrow. Medically stable other than serum sodium low. IV Lasix given this afternoon to help waste free water. Will repeat BMP this evening. Hold Lovenox tomorrow morning in light of surgery. Start Senna Plus routinely to decrease constipation. PRN Miralax, MOM, and Dulcolax suppositories. Initiate IS for pulmonary toilet. Continue levofloxacin for urinary coverage-check urine C/S. Continue pain control - symptoms stable at this time. Recheck BMP in am due to hyponatremia. Recheck CBC in am due to anemia.
[2017-05-11] MEDS: NS 1,000 ML IV SCH (19:24)
[2017-05-11] MEDS ORDERED: POLYETHYL GLYCOL 3350 17gm PACKET PO PRN (19:35)
[2017-05-11] MEDS: Verapamil SR 120 MG TABLET (12Hr) PO SCH (21:03)
[2017-05-11] MEDS: SENNA + DOCUSATE TABLET PO SCH (21:03)
[2017-05-12] MEDS: MORPHINE SULFATE 4 MG SYRINGE IVP PRN ×2 (01:42→08:28)
[2017-05-12] MEDS: NS 1,000 ML IV SCH ×3 (05:25→16:26)
[2017-05-12] MEDS: PANTOPRAZOLE 40 MG INJECTION IVP SCH (08:28)
[2017-05-12] MEDS ORDERED: FUROSEMIDE 20 MG/2 ML INJECTION IVP ONE (09:24)
[2017-05-12] MEDS ORDERED: LR 1,000 ML IV SCH (11:00)
[2017-05-12] MEDS ORDERED: ROPIVACAINE 0.5% (5mg/ml) 30ml INJ ONE ×2 (11:04→14:44)
[2017-05-12] MEDS ORDERED: LIDOCAINE 1%/EPI 1:100,000 20ml INJ MDV ONE (11:05)
[2017-05-12] MEDS ORDERED: SUGAMMADEX 200mg/2ml INJECTION IVP ONE (11:10)
[2017-05-12] MEDS ORDERED: PROPOFOL 20 ML ONE (11:54)
[2017-05-12] MEDS ORDERED: FentaNYL 100 MCG/2 ML INJECTION ONE (11:54)
--- NOTE | 2017-05-12 12:01 | Anesthesia Preoperative Report ---
Anesthesia Preoperative Record - Date and Time Date: 05/12/17 Preoperative Diagnosis: UTI, Syncope, tibial, plateau fracture Proposed Procedure: ORIF left tibial platue NPO Since Date: 05/12/17 NPO Since Time: 00:00 Allergies/Adverse Reactions: Allergies Allergy/AdvReac Type Severity Reaction Status Date / Time amoxicillin Allergy Rash Verified 05/10/17 07:26 Sulfa (Sulfonamide Allergy Rash Verified 05/10/17 07:26 Antibiotics) Iodinated Contrast- Oral and AdvReac Unknown Nausea and Verified 05/10/17 09:18 IV Dye Vomiting - Vital Signs Vital Signs: Temperature 97.7 F 05/12/17 11:19 Pulse Rate 71 05/12/17 10:23 Respiratory Rate 20 05/12/17 10:20 Blood Pressure 129/61 05/12/17 10:20 Pulse Oximetry 94 05/12/17 10:20 Height and Weight: Height 1.63 m Weight 91.1 kg Body Mass Index 34.2 - Medications Inpatient Medications: Current Medications Acetaminophen (Tylenol) 650 mg PO Q5H PRN PRN Reason: Discomfort Bisacodyl (Dulcolax) 10 mg RECTALLY DAILY PRN PRN Reason: Constipation Enoxaparin Sodium (Lovenox) 40 mg SQ DAILY [facility] Last Admin: 05/11/17 08:14 Dose: 40 mg Furosemide (Lasix) 20 mg PO DAILY [facility] Last Admin: 05/11/17 08:46 Dose: 20 mg Levofloxacin/Dextrose (Levaquin Premix) 500 mg in 100 mls @ 100 mls/hr IV O [facility] Last Infusion: 05/11/17 12:13 Dose: Infused Sodium Chloride (Normal Saline) 1,000 mls @ 100 mls/hr IV .Q10H [facility] Last Admin: 05/12/17 05:25 Dose: 100 mls/hr Sodium Chloride (Normal Saline) 1,000 mls @ 75 mls/hr IV .[id number] [facility] Last Admin: 05/12/17 11:50 Dose: 75 mls/hr Levothyroxine Sodium (Synthroid) 20 mcg PO DAILY [facility] Last Admin: 05/11/17 08:14 Dose: 20 mcg Losartan Potassium (Cozaar) 100 mg PO DAILY [facility] Last Admin: 05/11/17 08:46 Dose: 100 mg Magnesium Hydroxide (Mom) 30 ml PO DAILY PRN PRN Reason: Constipation Morphine Sulfate (Morphine Sulfate Inj) 4 mg IVP Q3H PRN PRN Reason: Pain Last Admin: 05/12/17 08:28 Dose: 4 mg Ondansetron HCl (Zofran) 4 mg IVP Q6H PRN PRN Reason: Nausea Pantoprazole Sodium (Protonix Iv) 40 mg IVP DAILY [facility] Last Admin: 05/12/17 08:28 Dose: 40 mg Polyethylene Glycol (Miralax) 17 gm PO DAILY PRN PRN Reason: Constipation Potassium Chloride (K-Dur) 10 meq PO DAILY [facility] Last Admin: 05/11/17 08:15 Dose: 10 meq Senna/Docusate Sodium (Senna Plus Tablet) 1 tab PO BID [facility] Last Admin: 05/11/17 21:03 Dose: 1 tab Sodium Chloride (Iv Flush) 10 - 80 ml IVF PRN PRN PRN Reason: Flushing Last Admin: 05/11/17 22:44 Dose: 10 ml Sodium Chloride (Normal Saline) 500 ml IV PRN PRN Last Admin: 05/10/17 11:56 Dose: 500 ml Verapamil HCl (Calan Sr) 180 mg PO HS [facility] Last Admin: 05/11/17 21:03 Dose: 180 mg Verapamil HCl (Calan Sr) 120 mg PO HS [facility] Last Admin: 05/11/17 21:03 Dose: 120 mg Home Medications: Home Medications Medication Instructions Recorded Confirmed Type Furosemide [Lasix] 20 mg PO DAILY 05/10/17 05/10/17 History Levothyroxine Sodium 20 mcg PO DAILY 05/10/17 05/10/17 History Losartan [Cozaar] 100 mg PO DAILY 05/10/17 05/10/17 History Omeprazole [Prilosec] 20 mg PO DAILY 05/10/17 05/10/17 History Potassium Chloride [K-Dur] 10 meq PO DAILY 05/10/17 05/10/17 History Verapamil HCl [Verapamil ER Pm] 300 mg PO HS 05/10/17 05/10/17 History Is Patient on Beta Alexandr?: No - Medical History Cardiovascular: Reports: Hypertension, Other (Negative stress test 4 years ago) Gastrointestional: Reports: Gastroesophageal Reflux Disease - Surgical History GI Surgery/Treatments: Reports: Colonoscopy Musculoskeletal Surgery/Tx: Reports: Total Hip Replacement (lt hip) Anesthesia Reactions: None Hx Family Anesthesia Reaction: No History of Motion Sickness: No - Social History Smoking Status: Never smoker Hx Chewing Tobacco Use: No Second Hand Exposure: No Substance Use Type: does not use Alcohol Intake Frequency: does not drink - Pertinent Findings Laboratory: CBC and BMP 05/12/17 05:25 05/12/17 05:25 BMP 05/11/17 05/12/17 17:11 05:25 Sodium 127 L 126 L Potassium 3.9 4.1 Chloride 87 L 91 L Carbon Dioxide 30 27 BUN 23.0 H 27.0 H Creatinine 1.2 D 1.2 Glucose 87 120 H Calcium 9.4 9.0 EKG: Sinus Rhythm, First Degree AV Block - Physical Exam Respiratory Exam: Present: lungs clear Cardiovascular Exam: Present: regular rate and rhythm - Airway Assessment Mallampati Score: II TMD: 3 Fingerbreadths Neck Extension: fair Overall Assessment: no airway concerns, may be difficult mask vent - ASA ASA Score: 3 - Plan Anesthesia: General Inhalation Gases - Discussion Discussion: Discussed risks/options/alternatives of anesthesia and questions answered. Patient consents. Nursing pain assessment noted. Present for Discussion: spouse Attestation Statement: Prior to the delivery of any anesthetic medication, I examined the patient, developed the plan, obtained the patient's consent and discussed the risk and benefits of the procedure with the patient/guardian. - Additional Information Comments: [place] [address] plus on the . Negative doppler studies of both upper and lower extremities, as well as negative chest xray. Patient is hyponatremic and from her reported history it is a chronic issue. IV fluids changed to normal saline. Seen by Anesthesia: Yes
[2017-05-12] MEDS ORDERED: EPHEDRINE 50mg/ml INJECTION ONE (12:40)
[2017-05-12] MEDS: LEVOFLOXACIN PB 500 MG/100 ML BAG IV SCH (12:45)
[2017-05-12] MEDS ORDERED: CLINDAMYCIN PB 900 MG/50 ML BAG IV ONE (13:00)
[2017-05-12] MEDS ORDERED: CLINDAMYCIN PB 900 MG/50 ML BAG IV SCH (13:00)
--- NOTE | 2017-05-12 15:02 | Remote Fluorsocopy Report ---
Indication: ORIF LEFT TIBIA PROCEDURE: RF knee LT 3 view: Encounter: Initial Comparison: Radiographs dated May 10, 2017 Findings: Seven fluoroscopic spot images are submitted for interpretation. Images show open reduction and internal fixation of the lateral tibial plateau fracture with placement of a lateral fixation plate and multiple screws. There is improved alignment. Impression: Intraoperative fluoroscopy as above. Fluoroscopy time is 198 seconds. Fluoroscopy dose is 2090 mRad. .
[2017-05-12] MEDS ORDERED: ONDANSETRON 4 MG/2 ML INJECTION ONE (15:15)
[2017-05-12] MEDS ORDERED: DEXAMETHASONE 4 MG/ML INJECTION ONE (15:15)
--- NOTE | 2017-05-12 15:58 | Anesthesia Postoperative Note ---
- Date and Time Date: 05/12/17 Time: 15:58 - Status Patient Participated in Evaluation: Patient Participated in Person Vital Signs: Temperature 97.7 F 05/12/17 11:19 Pulse Rate 71 05/12/17 10:23 Respiratory Rate 20 05/12/17 10:20 Blood Pressure 129/61 05/12/17 10:20 Pulse Oximetry 94 05/12/17 10:20 Respiratory Function: Airway Patent Cardiovascular Function: Regular Pulse EKG: Sinus Rhythm Mental Status: Alert and Oriented Pain Intensity: 3 Hydration: IV Infusing Complications During Recover: None Apparent - Follow-Up Instructions Instructions: Per Surgeon
[2017-05-12] MEDS ORDERED: METOCLOPRAMIDE 10mg/2ml INJECTION IVP PRN (16:00)
[2017-05-12] MEDS ORDERED: ONDANSETRON 4 MG/2 ML INJECTION IVP PRN (16:00)
[2017-05-12] MEDS ORDERED: HYDROMORPHONE 2 MG/ML INJECTION IVP PRN (16:00)
--- NOTE | 2017-05-12 16:00 | Anesthesia Procedure Note ---
Peripheral Nerve Blockade - Procedure Physician: Kristofer Ortega MD Date: 05/12/17 Surgical Procedure: ORIF left tibial platue Discussion: Discussed risks/options/alternatives of anesthesia and questions answered. Patient consents. Nursing pain assessment noted. Block Start: 15:47 Block Stop: 15:51 Blocked Employed: [employer] Indication: Post-Operative Pain Approach: Left Side Confirmed Position: Supine Patient: Consent, Risks/Benefits Discussed, Informed, Post Block Act. Discussed IV Sedation: No Initial Vital Signs: Temperature 98.2 F 05/10/17 07:22 Temperature Source Oral 05/10/17 07:22 Sepsis Recent Fever Within 48 Hours No 05/10/17 07:22 Sepsis Suspicion of Infection No 05/10/17 07:22 Sepsis New/Unexplained Change in Mental Status No 05/10/17 07:22 Sepsis Score/Level No Definite Risk 05/10/17 07:22 Sepsis Action Taken by Nursing No Action 05/10/17 07:22 Pulse Rate 88 05/10/17 07:22 Pulse Rhythm 05/10/17 07:22 Pulse Strength Normal 05/10/17 07:22 Respiratory Rate 16 05/10/17 07:22 Respiratory Depth Normal 05/10/17 07:22 Respiratory Pattern 05/10/17 07:22 Blood Pressure 195/84 H 05/10/17 07:22 Blood Pressure Mean 121 05/10/17 07:22 Blood Pressure Position Supine 05/10/17 07:22 Pulse Oximetry 86 L 05/10/17 07:22 Oxygen Delivery Method 05/10/17 07:22 Post Vital Signs: Temperature 97.7 F 05/12/17 11:19 Pulse Rate 71 05/12/17 10:23 Respiratory Rate 20 05/12/17 10:20 Blood Pressure 129/61 05/12/17 10:20 Pulse Oximetry 94 05/12/17 10:20 Initial Pain Pain Score: 3 Post Block Pain Score: 4 Prep: Chlorhexadine/ETOH Ultrasound Used?: Yes - Injectate Ropivacaine (%): 0.5 Ropivacaine (mL): 20 Was Epi 1:200,000 Used?: No Injection: Injection made incrementally with constant monitoring and aspiration every ml
[2017-05-12] MEDS ORDERED: HYDROCODONE/APAP 7.5 MG/325 MG TABLET PO PRN (16:08)
[2017-05-12] MEDS: FUROSEMIDE 20 MG TABLET PO SCH (16:17)
[2017-05-12] MEDS: LOSARTAN 100 MG TABLET PO SCH (16:17)
[2017-05-12] MEDS: SENNA + DOCUSATE TABLET PO SCH ×2 (16:18→20:52)
[2017-05-12] MEDS: LEVOTHYROXINE 50 MCG TABLET PO SCH (16:18)
--- NOTE | 2017-05-12 18:04 | Progress Note ---
<Genet Gregory - Last Filed: 05/12/17 18:30> Subjective: Patient seen lying in bed. She reports she feels "surprisingly better than I thought I would." States her pain is 4/10. She has not had any shortness of breath or chest pain. No abdominal pain. Last bowel movement was prior to admission, but she states that it was a very good bowel movement and she feels she completely emptied out. Objective Vital signs: Temperature 97 F 05/12/17 16:13 Pulse Rate 78 05/12/17 16:10 Respiratory Rate 16 05/12/17 16:10 Blood Pressure 103/52 05/12/17 16:10 Pulse Oximetry 93 05/12/17 16:10 Height/Weight/BMI: Height 1.63 m Weight 91.1 kg Body Mass Index 34.2 - Constitutional Present: no acute distress, well nourished, well developed - Routine Respiratory Exam Present: CTA bilaterally. Absent: wheezes - Routine Cardiovascular Exam Present: RRR, S1, S2. Absent: murmur - Routine Abdominal Exam Present: soft, normoactive bowel sounds, non distended. Absent: tenderness - Routine Extremities Exam Present: edema (2+), normal capillary refill - Routine Skin Exam Present: dry, warm - Routine Neurological Exam Present: alert, oriented X3 - Routine Lymphatic Exam Lymphatic: Absent: adenopathy - Routine Psychiatric Exam Present: normal affect, normal thought process, cooperative Results - Labs CBC & Chem 7: 05/12/17 05:25 05/12/17 05:25 Assessment and Plan (1) Closed fracture of lateral portion of left tibial plateau Current visit: Yes Status: Acute Assessment and Plan: Assessment Left tibial plateau fracture. Fall secondary to loss of footing Hyponatremia (POA) Syncopal event UTI Elevated D-Dimer HTN Hypothyroidism Anemia Obesity with BMI 34.2 Plan Lovenox has been resumed. Continue Senna Plus routinely to decrease constipation. PRN Miralax, MOM, and Dulcolax suppositories. Continue IS for pulmonary toilet. Urine culture shows ESBL resistant to levofloxacin. Will DC levofloxacin and start nitrofurantoin x 7 days for urinary coverage. Continue pain control - symptoms stable at this time. Recheck BMP in am due to hyponatremia. Recheck CBC in am due to anemia. Wean O2 as able. Hospital Course Summary Disclaimer: The visit summary below is not to be considered part of the above Progress Note. Hospital Course: 05/11/17 Admission Assessment Left tibial plateau fracture. Fall secondary to loss of footing Hyponatremia (POA) Syncopal event UTI Elevated D-Dimer HTN Hypothyroidism Anemia Obesity with BMI 34.2 SUMMARY - This is a 76 YO female with H.O HTN, that presented to the ED with a syncopal event - per description - she could have had a brief seizure but pt had no post ictal. Pt has had a previos spinal compression fracture. It appears that this fall caused her to have a tibial plateau fracture. On admission she was in distress due to pain and due to urgency (Urinary). Since admission she had a Lr catheter and was given morphine and is now very comfortable, oriented x 3 conversant, up in bed having her dinner. I have entered a request to obtain her records from [place] ([place]). Diagnosis 1) Tibial plateau fracture in a 76 YO female with possible osteoporosis - Refer to ortho evaluation - Continue immobilization - Pain management with Morphine 2) Hypertension, uncontrolled on admission now better - probably BP was high due to pain. Pt has LVH per EKG, will have to compare with older EKG. Continue with home meds and watch carefully her BP while in the hospital - Continue home medications. - Telemetry 3) UTI with Leukocytosis on admisison. - UA suggest infection, WBC very high on admission probably in part due to stress. - Culture sent - Blood cultures x 2 sent. 4) Very high D-Dimer on admission with ? of hypoxemia on admission to the ED ( Per ED MD Saturation was 86% on room air on admission) - Since pt had a syncopal event - had CTA chest - negative - Dopplers of upper and lower extremities were negative for DVT - Pt was on Lasix but had decreased dose - CXR negative for congestion. - Recheck CXR in the AM. 5) Hyponatremia on admission - Check Plasma and Urine Osm, TSH, Cortisol, Uric acid level. - Serial checks on Na - No fluid restriction yet. 6) Anemia on admission - if H.H drops further may consider working up now, otherwise can be deferred. 7) S/P Hip replacement in the past. CODE STATUS IS FULL PREVENTION PUD -PROTONIX DVT - LOVENOX 05/11/[address] Mandel-anticipate surgery tomorrow. Medically stable other than serum sodium low. IV Lasix given this afternoon to help waste free water. Will repeat BMP this evening. Hold Lovenox tomorrow morning in light of surgery. Start Senna Plus routinely to decrease constipation. PRN Miralax, MOM, and Dulcolax suppositories. Initiate IS for pulmonary toilet. Continue levofloxacin for urinary coverage-check urine C/S. Continue pain control - symptoms stable at this time. Recheck BMP in am due to hyponatremia. Recheck CBC in am due to anemia. 05/12/17 Lovenox has been resumed. Continue Senna Plus routinely to decrease constipation. PRN Miralax, MOM, and Dulcolax suppositories. Continue IS for pulmonary toilet. Urine culture shows ESBL resistant to levofloxacin. Will DC levofloxacin and start nitrofurantoin x 7 days for urinary coverage. Continue pain control - symptoms stable at this time. Recheck BMP in am due to hyponatremia. Recheck CBC in am due to anemia. Wean O2 as able. <Erasmo Eisenberg D - Last Filed: 05/12/17 19:46> Objective Vital signs: Temperature 97 F 05/12/17 16:13 Pulse Rate 78 05/12/17 16:10 Respiratory Rate 16 05/12/17 16:10 Blood Pressure 103/52 05/12/17 16:10 Pulse Oximetry 93 05/12/17 16:10 Height/Weight/BMI: Height 1.63 m Weight 91.1 kg Body Mass Index 34.2 Results - Labs CBC & Chem 7: 05/12/17 05:25 05/12/17 05:25 Assessment and Plan (1) Closed fracture of lateral portion of left tibial plateau Current visit: Yes Status: Acute DVT Prophylaxis: SCD's, Lovenox Resuscitation Status: Full Code Assessment and Plan: Assessment Left tibial plateau fracture - S/P ORIF left tibial plateau 05/12/17 Fall secondary to loss of footing Hyponatremia (POA) Syncopal event UTI Elevated D-Dimer HTN Hypothyroidism Anemia Obesity with BMI 34.2 Have independently interviewed and examined pt. Chart reviewed. Case discussed with CM and my PA. Care plan developed with my supervision; agree with above. Doing well this evening. Tolerated surgery. Pain controlled (had nerve block). No nausea or ab discomfort. Eating well. Breathing feels fine-not feeling SOA or congested. Needing 3L O2 currently. Lungs: clear bilaterally, no distress CV: regular AB: soft nt/nd +BS MSE: awake alert appropriate Plan: Continue with post op care. PT to help functional status. Continue pain control (advised pt pain will increase once nerve block wears off). Will continue NS to help hyponatremia - currently I>O; monitor as may need diuretics. Will hold ARB due to Sx. Change to nitrofurantoin to cover Ecoli. Monitor lab. Hospital Course Summary Disclaimer: The visit summary below is not to be considered part of the above Progress Note.
[2017-05-12] MEDS: CLINDAMYCIN PB 900 MG/50 ML BAG IV SCH (19:34)
[2017-05-12] MEDS: NITROFURANTOIN (MACROBID) 100 MG CAPSULE PO SCH (19:47)
[2017-05-12] MEDS: ENOXAPARIN 40 MG/0.4 ML INJECTION SQ SCH (20:52)
[2017-05-12] MEDS: Verapamil SR 120 MG TABLET (12Hr) PO SCH (20:52)
[2017-05-13] MEDS: CLINDAMYCIN PB 900 MG/50 ML BAG IV SCH ×2 (02:05→08:28)
[2017-05-13] MEDS: NS 1,000 ML IV SCH ×3 (02:36→15:08)
--- NOTE | 2017-05-13 07:41 | Orthopedic Progress Note ---
Date: Subjective/Severity of Illness: POD 1 sp ORIF left lateral tibial plateau. Pain controlled. Has been at bedrest. NWB LLE. Drain output 90 last 12 hours. Lovenox was given last evening , but was not supposed to be started until today. Denies nausea, vomiting, fever, chills. Tolerating po well. Orthopedic Objective Vital signs: Temperature 98.1 F 05/13/17 04:00 Pulse Rate 68 05/13/17 04:00 Respiratory Rate 16 05/13/17 04:00 Blood Pressure 132/68 05/13/17 04:00 Pulse Oximetry 97 05/13/17 04:00 Height and Weight: Height 5 ft 4 in Weight 200 lb 13.458 oz Body Mass Index 34.2 - Constitutional General Appearance: Present: alert, orientated x3, cooperative, no acute distress - Respiratory Exam Present: non-labored - Cardiovascular Exam Capillary Refill: < 2-3 Seconds - Abdominal Exam Present: soft. Absent: tenderness, distended - Extremities Exam Present: edema (2+), normal capillary refill. Absent: calf tenderness, Ronald's sign - Knee Exam left Knee Exam: Present: tender along joint line (lateral TTP), ROM (not assessed secondary to pain, known fx), effusion, painful ROM - Surgical Site left lateral knee Incision: clean, dry, intact, dressing intact Wound Drainage: minimal amount Drains Present: racheal plascencia Drain Output: minimal amount - Integumentary Exam Present: pink, warm, dry, intact - Lymphatic Lymphatic: Absent: adenopathy - Neurological Exam Present: intact to light touch, no deficits - Psychiatric Exam Present: alert, oriented, normal affect, attentive - Wound Management Left Leg Wound Type: Surgical Incision - Labs Result Diagrams: 05/12/17 05:25 05/13/17 03:50 Abnormal lab results 05/13/17 Range/Units 03:50 Sodium 126 L (134-144) MEQ/L Chloride 95 L (98-107) MEQ/L Carbon Dioxide 19 L (22-30) MEQ/L BUN 26.0 H (7-17) MG/DL Glucose 142 H (65-110) MG/DL Calculated Osmolality 250 L (261-280) MOSM/KG Calcium 8.3 L (8.4-10.2) MG/DL Specimen Hemolysis 122 H (0-25) H & H 05/11/17 05/12/17 Range/Units 08:23 05:25 Hgb 10.6 L 9.3 L D (12-16) GM/DL Hct 32.0 L 28.7 L (36-46) % Orthopedic Assessment and Plan (1) Closed fracture of lateral portion of left tibial plateau Status: Acute Qualifiers: Encounter type: subsequent encounter Assessment and Plan: Doing well POD 1 sp left tibial plateau ORIF. Can begin working with PT for gait. ROM 0-50 otherwise in immobilizer. NWB LLE. Will DC drain today. Ice to knee. Will continue to follow. Plan for DC once medically stable. Pt to FU with Orthopedics at home 7-10 days post op. - Anticoagulation Therapy Anticoagulation: Lovenox 40 mg SQ Daily x 30 days from day of surgery (To begin post op) Hospital Course Summary Disclaimer: The visit summary below is not to be considered part of the above Progress Note. Hospital Course: 05/11/17 Admission Assessment Left tibial plateau fracture. Fall secondary to loss of footing Hyponatremia (POA) Syncopal event UTI Elevated D-Dimer HTN Hypothyroidism Anemia Obesity with BMI 34.2 SUMMARY - This is a 76 YO female with H.O HTN, that presented to the ED with a syncopal event - per description - she could have had a brief seizure but pt had no post ictal. Pt has had a previos spinal compression fracture. It appears that this fall caused her to have a tibial plateau fracture. On admission she was in distress due to pain and due to urgency (Urinary). Since admission she had a Lr catheter and was given morphine and is now very comfortable, oriented x 3 conversant, up in bed having her dinner. I have entered a request to obtain her records from [place] ([place]). Diagnosis 1) Tibial plateau fracture in a 76 YO female with possible osteoporosis - Refer to ortho evaluation - Continue immobilization - Pain management with Morphine 2) Hypertension, uncontrolled on admission now better - probably BP was high due to pain. Pt has LVH per EKG, will have to compare with older EKG. Continue with home meds and watch carefully her BP while in the hospital - Continue home medications. - Telemetry 3) UTI with Leukocytosis on admisison. - UA suggest infection, WBC very high on admission probably in part due to stress. - Culture sent - Blood cultures x 2 sent. 4) Very high D-Dimer on admission with ? of hypoxemia on admission to the ED ( Per ED MD Saturation was 86% on room air on admission) - Since pt had a syncopal event - had CTA chest - negative - Dopplers of upper and lower extremities were negative for DVT - Pt was on Lasix but had decreased dose - CXR negative for congestion. - Recheck CXR in the AM. 5) Hyponatremia on admission - Check Plasma and Urine Osm, TSH, Cortisol, Uric acid level. - Serial checks on Na - No fluid restriction yet. 6) Anemia on admission - if H.H drops further may consider working up now, otherwise can be deferred. 7) S/P Hip replacement in the past. CODE STATUS IS FULL PREVENTION PUD -PROTONIX DVT - LOVENOX 05/11/[address] Mandel-anticipate surgery tomorrow. Medically stable other than serum sodium low. IV Lasix given this afternoon to help waste free water. Will repeat BMP this evening. Hold Lovenox tomorrow morning in light of surgery. Start Senna Plus routinely to decrease constipation. PRN Miralax, MOM, and Dulcolax suppositories. Initiate IS for pulmonary toilet. Continue levofloxacin for urinary coverage-check urine C/S. Continue pain control - symptoms stable at this time. Recheck BMP in am due to hyponatremia. Recheck CBC in am due to anemia. 05/12/17 Lovenox has been resumed. Continue Senna Plus routinely to decrease constipation. PRN Miralax, MOM, and Dulcolax suppositories. Continue IS for pulmonary toilet. Urine culture shows ESBL resistant to levofloxacin. Will DC levofloxacin and start nitrofurantoin x 7 days for urinary coverage. Continue pain control - symptoms stable at this time. Recheck BMP in am due to hyponatremia. Recheck CBC in am due to anemia. Wean O2 as able.
[2017-05-13] MEDS: FUROSEMIDE 20 MG TABLET PO SCH (08:28)
[2017-05-13] MEDS: NITROFURANTOIN (MACROBID) 100 MG CAPSULE PO SCH ×2 (08:28→17:39)
[2017-05-13] MEDS: PANTOPRAZOLE 40 MG INJECTION IVP SCH (08:29)
[2017-05-13] MEDS: SENNA + DOCUSATE TABLET PO SCH ×2 (11:02→21:48)
[2017-05-13] MEDS: LEVOTHYROXINE 50 MCG TABLET PO SCH (12:35)
[2017-05-13] MEDS ORDERED: FUROSEMIDE 40 MG/4 ML INJECTION IVP ONE (14:26)
--- NOTE | 2017-05-13 14:57 | Progress Note ---
Subjective: F/U: Left tibial plateau fracture Doing okay. Pain controlled, not needing much pain medications. Did work with therapy this morning and very challenging-not able to bear weight of left leg; very difficult to move and transfer using only right side. Breathing feels well- not congested or hurting as see breaths. Breathing comfortably on RA. Eating well. Not had stool, but not really feeling crampy or bloated. Reminded patient about as needed medications. No f/c. Objective Vital signs: Temperature 96.4 F L 05/13/17 12:00 Pulse Rate 90 05/13/17 12:00 Respiratory Rate 18 05/13/17 12:00 Blood Pressure 150/86 H 05/13/17 12:00 Pulse Oximetry 94 05/13/17 12:00 Height/Weight/BMI: Height 1.63 m Weight 94.8 kg Body Mass Index 34.2 - Constitutional Present: well nourished, well developed, obese, cooperative - Routine HEENT Exam Head: Present: normocephalic, atraumatic Eye: Present: EOMI, PERRL ENT: Present: mucous membranes moist - Routine Respiratory Exam Present: CTA bilaterally. Absent: respiratory distress, wheezes, crackles - Routine Cardiovascular Exam Present: RRR - Routine Abdominal Exam Present: soft, non distended, non tender. Absent: normoactive bowel sounds ( Decreased), rebound - Routine Extremities Exam Present: edema (+2 bilateral lower ext edema ). Absent: cyanosis, clubbing - Routine Back/Spine/Pelvis Exam Back/Spine: Absent: full ROM (Left knee in brace imobilizer ) - Routine Musculoskeletal Exam Musculoskeletal: Present: no clubbing or cyanosis - Routine Skin Exam Present: dry, warm - Routine Neurological Exam Present: alert, oriented X3, CN II-XII intact, moving all extremities, vision grossly intact, hearing grossly intact. Absent: motor deficit - Routine Psychiatric Exam Present: normal affect, normal thought process, cooperative, good insight, good judgment. Absent: anxious, agitated Results - Labs CBC & Chem 7: 05/13/17 07:08 05/13/17 03:50 Assessment and Plan (1) Closed fracture of lateral portion of left tibial plateau Current visit: Yes Status: Acute DVT Prophylaxis: SCD's, Lovenox Resuscitation Status: Full Code Assessment and Plan: Assessment Left tibial plateau fracture - S/P ORIF left tibial plateau 05/12/17 Fall secondary to loss of footing Hyponatremia (POA) Syncopal event UTI Elevated D-Dimer HTN Hypothyroidism Anemia Obesity with BMI 34.2 Plan Serum sodium decreased and weight increasing-will give Lasix 40mg IV to help was free water. Bladder retaining-with patients decreased mobility do not feel ready for Lr removal. Blood pressure not decreased and creatinine stable. Will restart losartan. Continue bowel motivation; reminded patient about prn Miralax and MOM/Dulcolax. May change Protonix from IV to po as taking oral well. Hemoglobin trending down to 8.4 - will type and screen; potentially need transfusion. Discussed with patient about this. Continue with therapy to maximize functional status. Patient would like to have rehab closer to home; will have to see how well she does with therapy to determine if able to fly home. Recheck CBC in am due to anemia. Recheck BMP in am due to hyponatremia. Case discussed with patient's . Time spent with patient care 25 minutes. - Time spent with patient 25 - 35 minutes Hospital Course Summary Disclaimer: The visit summary below is not to be considered part of the above Progress Note. Hospital Course: 05/11/17 Admission Assessment Left tibial plateau fracture. Fall secondary to loss of footing Hyponatremia (POA) Syncopal event UTI Elevated D-Dimer HTN Hypothyroidism Anemia Obesity with BMI 34.2 SUMMARY - This is a 76 YO female with H.O HTN, that presented to the ED with a syncopal event - per description - she could have had a brief seizure but pt had no post ictal. Pt has had a previos spinal compression fracture. It appears that this fall caused her to have a tibial plateau fracture. On admission she was in distress due to pain and due to urgency (Urinary). Since admission she had a Lr catheter and was given morphine and is now very comfortable, oriented x 3 conversant, up in bed having her dinner. I have entered a request to obtain her records from [place] ([place]). Diagnosis 1) Tibial plateau fracture in a 76 YO female with possible osteoporosis - Refer to ortho evaluation - Continue immobilization - Pain management with Morphine 2) Hypertension, uncontrolled on admission now better - probably BP was high due to pain. Pt has LVH per EKG, will have to compare with older EKG. Continue with home meds and watch carefully her BP while in the hospital - Continue home medications. - Telemetry 3) UTI with Leukocytosis on admisison. - UA suggest infection, WBC very high on admission probably in part due to stress. - Culture sent - Blood cultures x 2 sent. 4) Very high D-Dimer on admission with ? of hypoxemia on admission to the ED ( Per ED MD Saturation was 86% on room air on admission) - Since pt had a syncopal event - had CTA chest - negative - Dopplers of upper and lower extremities were negative for DVT - Pt was on Lasix but had decreased dose - CXR negative for congestion. - Recheck CXR in the AM. 5) Hyponatremia on admission - Check Plasma and Urine Osm, TSH, Cortisol, Uric acid level. - Serial checks on Na - No fluid restriction yet. 6) Anemia on admission - if H.H drops further may consider working up now, otherwise can be deferred. 7) S/P Hip replacement in the past. CODE STATUS IS FULL PREVENTION PUD -PROTONIX DVT - LOVENOX 05/11/[address] Mandel-anticipate surgery tomorrow. Medically stable other than serum sodium low. IV Lasix given this afternoon to help waste free water. Will repeat BMP this evening. Hold Lovenox tomorrow morning in light of surgery. Start Senna Plus routinely to decrease constipation. PRN Miralax, MOM, and Dulcolax suppositories. Initiate IS for pulmonary toilet. Continue levofloxacin for urinary coverage-check urine C/S. Continue pain control - symptoms stable at this time. Recheck BMP in am due to hyponatremia. Recheck CBC in am due to anemia. 05/12/17 Lovenox has been resumed. Continue Senna Plus routinely to decrease constipation. PRN Miralax, MOM, and Dulcolax suppositories. Continue IS for pulmonary toilet. Urine culture shows ESBL resistant to levofloxacin. Will DC levofloxacin and start nitrofurantoin x 7 days for urinary coverage. Continue pain control - symptoms stable at this time. Recheck BMP in am due to hyponatremia. Recheck CBC in am due to anemia. Wean O2 as able. 05/13/17 Serum sodium decreased and weight increasing-will give Lasix 40mg IV to help was free water. Bladder retaining-with patients decreased mobility do not feel ready for Lr removal. Blood pressure not decreased and creatinine stable. Will restart losartan. Continue bowel motivation; reminded patient about prn Miralax and MOM/Dulcolax. May change Protonix from IV to po as taking oral well. Hemoglobin trending down to 8.4 - will type and screen; potentially need transfusion. Discussed with patient about this. Continue with therapy to maximize functional status. Patient would like to have rehab closer to home; will have to see how well she does with therapy to determine if able to fly home. Recheck CBC in am due to anemia. Recheck BMP in am due to hyponatremia.
--- NOTE | 2017-05-13 19:46 | Operative Note ---
DATE OF OPERATION 05/12/2017 PREOPERATIVE DIAGNOSIS Closed left lateral tibial plateau fracture (split depression). POSTOPERATIVE DIAGNOSIS Closed left lateral tibial plateau fracture (split depression). PROCEDURE Open reduction internal fixation left lateral tibial plateau fracture with placement of bone allograft. SURGEON Sylvester Mandel MD FITNESS WORKER MD Rasta Milian PA-C ANESTHESIA General FLUIDS Please refer to Anesthesia chart. EBL Please refer to Anesthesia chart. COMPLICATIONS None. CONDITION Stable to recovery room. IMPLANTS Trell proximal lateral tibial locking plate with assorted 3.5 mm cortical screws, 4.0 mm cancellus screws and 4.0 mm locking screws. DESCRIPTION OF PROCEDURE The patient was identified in the preoperative holding area. The operative extremity was identified and appropriately marked. The risks, benefits, alternatives and potential complications were discussed and informed consent was obtained. A long talk was had with the patient regarding her left knee, noting that she had preexisting osteoarthritis. 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 We discussed the indication for this surgery, primarily at this point is to try to give her a stable platform should her knee pain not improve with this so that she has adequate bone stock for total knee arthroplasty. There was a long discussion about whether to do this here or for her to go back home to her orthopedist in the [place], [place] area. Ultimately the patient was concerned about travel and opted to have surgery here with plans to follow up with orthopedics back home. All questions were answered and she was indicated for surgery. The patient was taken to the operating theatre, placed supine on a radiolucent table. Appropriate cardiorespiratory monitors were applied. General anesthesia was administered. A tourniquet was applied high on the left thigh though not yet inflated. The left lower extremity was sterilely prepped and draped in the usual fashion. Surgical time-out was performed, confirmed with myself, the flood control engineer and circulating nurse. Preoperative antibiotics were given. The leg was exsanguinated with an Esmarch and the tourniquet inflated. An S-shaped incision was created over the anterolateral aspect of the knee extending approximately 3 cm above the joint line. The patient had significant adipose tissue. Electrocautery was used for hemostasis as necessary as dissection was carried through the subcutaneous fat. The IT band and anterior compartment fascia was identified as was Gerdy's tubercle. Retractors were placed. The fascial incision was created leaving an approximately 1 cm cuff of fascial tissue at the tibial crest. This extended proximally over Gerdy's tubercle and up into the IT band fascia. Retractors were then placed to hold this displaced. The fracture line of the major lateral fragment was identified anteriorly. A transverse submeniscal arthrotomy was then created and stay sutures were placed through the meniscus to elevate this and allow for visualization of the joint. Because of the patient's medial compartment arthrosis, we were able to get a fairly good look at this by placing varus stress. The joint was copiously irrigated. There was noted visualized depression centrally in the lateral compartment. No obvious meniscal pathology in the area that was visualized. The joint was again further irrigated of any hematoma. The anterior fracture line was again identified. A periosteal elevator was used to elevate periosteum in this area. Once we had adequate mobilization, lamina office director was placed in the anterior portion of the fracture to hinge this lateral fragment open to allow for elevation of the joint space. Fluoroscopy was brought in and using orthogonal planes in addition to visualizing the joint space through the arthrotomy, small tamps were used to meticulously elevate the fragments. It was noted to be significantly comminuted. The patient's bone quality itself including cortical bone was quite soft. We elevated the joint line while visualizing the cartilage line and felt we had reasonable elevation following this. Approximately 5 mL of crushed cancellus allograft bone combined with 2.5 mL of Drinks[employer] Vitoss bone graft substitute was mixed at the back table with autologous blood. This was combined with the crushed cancellus cubes. These were then impacted into this subcortical area to fill this void. Following this , the lamina office director was removed. The lateral fragment was then compressed and positioned utilizing reduction tenacula and provisionally held. X-rays were obtained showing improvement of her joint line. There was still felt to be some depression, particularly of the lateral fragment but was felt to be adequate. Given the patient's osteopenia and concern of further comminuting the major fragment. Following this, a 5-hole titanium lateral proximal tibial plate was positioned. Most posterior superior K-wire was advanced. Its position was confirmed in the AP and lateral planes. Prior to placement of the plate, multiple sutures were placed through the suture holes for later reparation of the arthrotomy. These were #2 FiberWire sutures. The plate was then fixed distally utilizing a partially threaded cancellus screw in a bicortical fashion to help compress the plate down to bone and further stabilize the major lateral fragment. Position again was confirmed with fluoroscopy. Additional distal cortical screw was placed at this time as well. Following this, three proximal rafting screws were placed, utilizing fluoroscopy to assure no penetration of the joint. Position was confirmed in the AP and lateral planes as a total of three locking screws were placed in the subcortical area. An additional kickstand type screw was placed utilizing a 4.0 cancellus screw through the plate followed by additional cortical screw distally. Ranging of the knee showed the fracture to be stable. Patient still did have pseudo varus instability secondary to her medial compartment wear as well. The wound and joint were again copiously irrigated. The submeniscal arthrotomy was then repaired with multiple interrupted #2 FiberWire sutures. A drain was placed underneath the IT band fascia extending into the anterior compartment. The IT band was then reapproximated and closed with interrupted [id number] #1 Vicryl sutures. Fascial layer was left open distally but closed loosely more proximally and at Gerdy's tubercle with interrupted #1 Vicryl sutures. This layer was again irrigated. Some deep adipose 2-0 Vicryls were placed to close down any space followed by a standard layered closure with 2-0 Vicryl in an inverted interrupted fashion and 4-0 Monocryl and Dermabond for the skin. The drain was hooked up and the tourniquet was deflated prior to final closure. Sterile dressings were applied followed by an Adrien bandage. She was placed in a knee immobilizer, awakened from anesthesia and taken to the recovery room in stable and satisfactory condition. POSTOPERATIVE PLAN The patient will be admitted. She will be on postoperative antibiotics for 24 hours. Will initiate CPM for 0-45 degrees. She is to be nonweightbearing on the left lower extremity, likely for 6-8 weeks. Will plan to pull the drain likely tomorrow or the following day. Pain control with IV and oral pain medication. Will initiate DVT prophylaxis with Lovenox as she will be traveling likely via aircraft back to [place] within a few days. Will continue outpatient Lovenox as well. I did speak with the and encouraged him to contact her orthopedist and arrange for followup. She should be seen 7-10 days after surgery for wound check and advancement of her of range of motion. MTDD
[2017-05-13] MEDS: Verapamil SR 120 MG TABLET (12Hr) PO SCH (21:48)
[2017-05-13] MEDS: ENOXAPARIN 40 MG/0.4 ML INJECTION SQ SCH (21:48)
[2017-05-14] MEDS: NS 1,000 ML IV SCH ×5 (01:36→23:10)
[2017-05-14] MEDS: PANTOPRAZOLE 40 MG TABLET PO SCH (05:42)
[2017-05-14] MEDS ORDERED: LEVOTHYROXINE 50 MCG TABLET PO SCH (09:00)
[2017-05-14] MEDS: FUROSEMIDE 20 MG TABLET PO SCH (09:22)
[2017-05-14] MEDS: NITROFURANTOIN (MACROBID) 100 MG CAPSULE PO SCH ×2 (09:22→17:39)
--- NOTE | 2017-05-14 10:01 | Orthopedic Progress Note ---
Date: Subjective/Severity of Illness: POD 2 sp ORIF left lateral tibial plateau. Pain controlled. No pain meds since yesterday before PT. PT went well, but having difficulty with being NWB on LLE. Has not worked on transfers yet. Using CPM tid. Up to 40 deg. Has been at bedrest. NWB LLE. On Lovenox. Off O2 at this time. No calf pain, numbness, tingling. Scot po well. Flatus but no BM yet. Weaning from Lr catheter and hoping to DC this today. Denies nausea, vomiting, fever, chills. Tolerating po well. Orthopedic Objective Vital signs: Temperature 97.5 F 05/14/17 09:00 Pulse Rate 70 05/14/17 09:00 Respiratory Rate 16 05/14/17 09:00 Blood Pressure 157/74 H 05/14/17 09:00 Pulse Oximetry 95 05/14/17 09:00 Height and Weight: Height 5 ft 4 in Weight 208 lb 5.389 oz Body Mass Index 34.2 - Constitutional General Appearance: Present: alert, orientated x3, cooperative, no acute distress Comments: Sitting on side of bed this AM. Immobilizer in place. - Respiratory Exam Present: non-labored - Cardiovascular Exam Present: peripheral edema, pedal pulses intact Capillary Refill: < 2-3 Seconds - Abdominal Exam Present: soft. Absent: tenderness, distended - Extremities Exam Present: edema (+2 bilateral lower ext edema ), normal capillary refill. Absent : cyanosis, clubbing, calf tenderness, Ronald's sign - Knee Exam left Knee Exam: Present: tender along joint line (lateral TTP), ROM (not assessed secondary to pain, known fx), effusion, painful ROM - Surgical Site left lateral knee Incision: clean, dry, intact, dressing intact Wound Drainage: minimal amount - Integumentary Exam Present: pink, warm, dry, intact - Lymphatic Lymphatic: Absent: adenopathy - Neurological Exam Present: intact to light touch, no deficits - Psychiatric Exam Present: alert, oriented, normal affect, attentive - Wound Management Left Leg Wound Type: Surgical Incision - Labs Result Diagrams: 05/14/17 03:49 05/14/17 03:49 Abnormal lab results 05/14/17 05/14/17 Range/Units 03:49 03:49 RBC 2.81 L (4.00-5.20) M/MM3 Hgb 8.6 L (12-16) GM/DL Hct 25.5 L (36-46) % Immature Gran % (Auto) 0.6 H (0.0-0.5) % Neut % (Auto) 72.0 H (33-66) % Lymph % (Auto) 15.0 L (23-45) % Lynn % (Auto) 11.9 H (0-9.0) % Lynn # 0.9 H (0-0.8) T/MM3 Abs Immat Gran (auto) 0.05 H (0.00-0.03) T/MM3 Sodium 132 L D (134-144) MEQ/L Potassium 3.1 L D (3.6-5) MEQ/L BUN 28.0 H (7-17) MG/DL BUN/Creatinine Ratio 28 H (6-26) RATIO H & H 05/11/17 05/12/17 05/13/17 Range/Units 08:23 05:25 07:08 Hgb 10.6 L 9.3 L D 8.8 L (12-16) GM/DL Hct 32.0 L 28.7 L 26.8 L (36-46) % 05/14/17 Range/Units 03:49 Hgb 8.6 L (12-16) GM/DL Hct 25.5 L (36-46) % Orthopedic Assessment and Plan (1) Closed fracture of lateral portion of left tibial plateau Status: Acute Qualifiers: Encounter type: subsequent encounter Assessment and Plan: Doing well POD 2 sp left tibial plateau ORIF. Continue working with PT for gait and transfers. ROM 0-50 otherwise in immobilizer. Continue to increase ROM with CPM. NWB LLE. Ice to knee. Will continue to follow. Plan for DC once medically stable. Pt to FU with Orthopedics at home 7-10 days post op. Will plan to change burke bandage tomorrow and re-apply and adjust immobilizer. - Anticoagulation Therapy Anticoagulation: Lovenox 40 mg SQ Daily x 30 days from day of surgery (To begin post op) Hospital Course Summary Disclaimer: The visit summary below is not to be considered part of the above Progress Note. Hospital Course: 05/11/17 Admission Assessment Left tibial plateau fracture. Fall secondary to loss of footing Hyponatremia (POA) Syncopal event UTI Elevated D-Dimer HTN Hypothyroidism Anemia Obesity with BMI 34.2 SUMMARY - This is a 76 YO female with H.O HTN, that presented to the ED with a syncopal event - per description - she could have had a brief seizure but pt had no post ictal. Pt has had a previos spinal compression fracture. It appears that this fall caused her to have a tibial plateau fracture. On admission she was in distress due to pain and due to urgency (Urinary). Since admission she had a Lr catheter and was given morphine and is now very comfortable, oriented x 3 conversant, up in bed having her dinner. I have entered a request to obtain her records from [place] ([place]). Diagnosis 1) Tibial plateau fracture in a 76 YO female with possible osteoporosis - Refer to ortho evaluation - Continue immobilization - Pain management with Morphine 2) Hypertension, uncontrolled on admission now better - probably BP was high due to pain. Pt has LVH per EKG, will have to compare with older EKG. Continue with home meds and watch carefully her BP while in the hospital - Continue home medications. - Telemetry 3) UTI with Leukocytosis on admisison. - UA suggest infection, WBC very high on admission probably in part due to stress. - Culture sent - Blood cultures x 2 sent. 4) Very high D-Dimer on admission with ? of hypoxemia on admission to the ED ( Per ED MD Saturation was 86% on room air on admission) - Since pt had a syncopal event - had CTA chest - negative - Dopplers of upper and lower extremities were negative for DVT - Pt was on Lasix but had decreased dose - CXR negative for congestion. - Recheck CXR in the AM. 5) Hyponatremia on admission - Check Plasma and Urine Osm, TSH, Cortisol, Uric acid level. - Serial checks on Na - No fluid restriction yet. 6) Anemia on admission - if H.H drops further may consider working up now, otherwise can be deferred. 7) S/P Hip replacement in the past. CODE STATUS IS FULL PREVENTION PUD -PROTONIX DVT - LOVENOX 05/11/[address] Mandel-anticipate surgery tomorrow. Medically stable other than serum sodium low. IV Lasix given this afternoon to help waste free water. Will repeat BMP this evening. Hold Lovenox tomorrow morning in light of surgery. Start Senna Plus routinely to decrease constipation. PRN Miralax, MOM, and Dulcolax suppositories. Initiate IS for pulmonary toilet. Continue levofloxacin for urinary coverage-check urine C/S. Continue pain control - symptoms stable at this time. Recheck BMP in am due to hyponatremia. Recheck CBC in am due to anemia. 05/12/17 Lovenox has been resumed. Continue Senna Plus routinely to decrease constipation. PRN Miralax, MOM, and Dulcolax suppositories. Continue IS for pulmonary toilet. Urine culture shows ESBL resistant to levofloxacin. Will DC levofloxacin and start nitrofurantoin x 7 days for urinary coverage. Continue pain control - symptoms stable at this time. Recheck BMP in am due to hyponatremia. Recheck CBC in am due to anemia. Wean O2 as able. 05/13/17 Serum sodium decreased and weight increasing-will give Lasix 40mg IV to help was free water. Bladder retaining-with patients decreased mobility do not feel ready for Lr removal. Blood pressure not decreased and creatinine stable. Will restart losartan. Continue bowel motivation; reminded patient about prn Miralax and MOM/Dulcolax. May change Protonix from IV to po as taking oral well. Hemoglobin trending down to 8.4 - will type and screen; potentially need transfusion. Discussed with patient about this. Continue with therapy to maximize functional status. Patient would like to have rehab closer to home; will have to see how well she does with therapy to determine if able to fly home. Recheck CBC in am due to anemia. Recheck BMP in am due to hyponatremia.
[2017-05-14] MEDS: SENNA + DOCUSATE TABLET PO SCH ×2 (13:06→22:17)
--- NOTE | 2017-05-14 14:56 | Progress Note ---
Subjective: F/U: Left tibial plateau fracture Doing well today. Pain controlled-mild twinges of discomfort but nothing severe. Trying to minimize narcotic pain medicines. Sore from working with therapy yesterday, but was able to do her transfers easier and better today. Breathing well-not SOA or congested. Using IS routinely. No needing O2. No pain with breathing. No chest pain or pressure. Eating well-no nausea or ab pain. Not had stool-took laxative earlier today. Feels sensation to urinate with bladder retraining. No f/c. Objective Vital signs: Temperature 97.2 F 05/14/17 12:04 Pulse Rate 77 05/14/17 12:04 Respiratory Rate 20 05/14/17 12:04 Blood Pressure 150/91 H 05/14/17 12:04 Pulse Oximetry 92 05/14/17 12:04 Height/Weight/BMI: Height 1.63 m Weight 94.5 kg Body Mass Index 34.2 - Constitutional Present: well nourished, well developed, obese, cooperative - Routine HEENT Exam Head: Present: normocephalic, atraumatic Eye: Present: EOMI, PERRL ENT: Present: mucous membranes moist - Routine Respiratory Exam Present: CTA bilaterally. Absent: respiratory distress, rhonchi, wheezes, crackles - Routine Cardiovascular Exam Present: RRR - Routine Abdominal Exam Present: soft, non distended, non tender. Absent: normoactive bowel sounds ( Decreased ) - Routine Extremities Exam Present: edema (+2 BLE), pulses intact. Absent: cyanosis, clubbing - Routine Musculoskeletal Exam Musculoskeletal: Present: no clubbing or cyanosis, limited range of motion ( Left leg in brace ) - Routine Skin Exam Present: dry, warm - Routine Neurological Exam Present: alert, oriented X3, CN II-XII intact, moving all extremities, vision grossly intact, hearing grossly intact. Absent: motor deficit - Routine Psychiatric Exam Present: normal affect, normal thought process, cooperative, good insight, good judgment Results - Labs CBC & Chem 7: 05/14/17 03:49 05/14/17 03:49 Assessment and Plan (1) Closed fracture of lateral portion of left tibial plateau Current visit: Yes Status: Acute DVT Prophylaxis: SCD's, Lovenox Resuscitation Status: Full Code Assessment and Plan: Assessment Left tibial plateau fracture - S/P ORIF left tibial plateau 05/12/17 Fall secondary to loss of footing Hyponatremia (POA) Syncopal event UTI Elevated D-Dimer HTN Hypothyroidism Anemia Obesity with BMI 34.2 Plan Serum sodium improved to 132 this am; weight reported with increased. Will repeat Lasix 40mg IV to help was free water. Potassium decreased to 3.1 - increase oral potassium to BID with meal; extra 20mEq given today with lunch. Monitor potassium supplementation as losartan restarted. Hemoglobin 8.6 - continue to monitor. D/C Lr this evening. Continue to work on bowel function. Encourage continue work with nursing and therapist to help improve functional status. Recheck CBC in am due to anemia. Recheck BMP in am due to hyponatremia. Case discussed with patient's . Time spent with patient care 25 minutes. - Time spent with patient 25 - 35 minutes Hospital Course Summary Disclaimer: The visit summary below is not to be considered part of the above Progress Note. Hospital Course: 05/11/17 Admission Assessment Left tibial plateau fracture. Fall secondary to loss of footing Hyponatremia (POA) Syncopal event UTI Elevated D-Dimer HTN Hypothyroidism Anemia Obesity with BMI 34.2 SUMMARY - This is a 76 YO female with H.O HTN, that presented to the ED with a syncopal event - per description - she could have had a brief seizure but pt had no post ictal. Pt has had a previous spinal compression fracture. It appears that this fall caused her to have a tibial plateau fracture. On admission she was in distress due to pain and due to urgency (Urinary). Since admission she had a Lr catheter and was given morphine and is now very comfortable, oriented x 3 conversant, up in bed having her dinner. I have entered a request to obtain her records from [place] ([place]). Diagnosis 1) Tibial plateau fracture in a 76 YO female with possible osteoporosis - Refer to ortho evaluation - Continue immobilization - Pain management with Morphine 2) Hypertension, uncontrolled on admission now better - probably BP was high due to pain. Pt has LVH per EKG, will have to compare with older EKG. Continue with home meds and watch carefully her BP while in the hospital - Continue home medications. - Telemetry 3) UTI with Leukocytosis on admission. - UA suggest infection, WBC very high on admission probably in part due to stress. - Culture sent - Blood cultures x 2 sent. 4) Very high D-Dimer on admission with ? of hypoxemia on admission to the ED ( Per ED MD Saturation was 86% on room air on admission) - Since pt had a syncopal event - had CTA chest - negative - Doppler of upper and lower extremities were negative for DVT - Pt was on Lasix but had decreased dose - CXR negative for congestion. - Recheck CXR in the AM. 5) Hyponatremia on admission - Check Plasma and Urine Osm, TSH, Cortisol, Uric acid level. - Serial checks on Na - No fluid restriction yet. 6) Anemia on admission - if H.H drops further may consider working up now, otherwise can be deferred. 7) S/P Hip replacement in the past. CODE STATUS IS FULL PREVENTION PUD -PROTONIX DVT - LOVENOX 05/11/17 Patient feeling would be prudent to have Sx here rather that travel home with unfixed fracture. Discussed case with Dr Mandel-anticipate surgery tomorrow. Medically stable other than serum sodium low. IV Lasix given this afternoon to help waste free water. Will repeat BMP this evening. Hold Lovenox tomorrow morning in light of surgery. Start Senna Plus routinely to decrease constipation. PRN Miralax, MOM, and Dulcolax suppositories. Initiate IS for pulmonary toilet. Continue levofloxacin for urinary coverage-check urine C/S. Continue pain control - symptoms stable at this time. Recheck BMP in am due to hyponatremia. Recheck CBC in am due to anemia. 05/12/17 OP DAY - S/P ORIF left tibial plateau Lovenox has been resumed. Continue Senna Plus routinely to decrease constipation. PRN Miralax, MOM, and Dulcolax suppositories. Continue IS for pulmonary toilet. Urine culture shows ESBL resistant to levofloxacin. Will DC levofloxacin and start nitrofurantoin x 7 days for urinary coverage. Continue pain control - symptoms stable at this time. Recheck BMP in am due to hyponatremia. Recheck CBC in am due to anemia. Wean O2 as able. 05/13/17 POD #1 Serum sodium decreased and weight increasing-will give Lasix 40mg IV to help was free water. Bladder retaining-with patients decreased mobility do not feel ready for Lr removal. Blood pressure not decreased and creatinine stable. Will restart losartan. Continue bowel motivation; reminded patient about prn Miralax and MOM/Dulcolax. May change Protonix from IV to po as taking oral well. Hemoglobin trending down to 8.8 - will type and screen; potentially need transfusion. Discussed with patient about this. Continue with therapy to maximize functional status. Patient would like to have rehab closer to home; will have to see how well she does with therapy to determine if able to fly home. Recheck CBC in am due to anemia. Recheck BMP in am due to hyponatremia. 05/14/17 POD #2 Pain controlled well. Patient trying to minimize narcotic use. Serum sodium improved to 132 this am; weight reported with increased. Will repeat Lasix 40mg IV to help was free water. Potassium decreased to 3.1 - increase oral potassium to BID with meal; extra 20mEq given today with lunch. Monitor potassium supplementation as losartan restarted. Hemoglobin 8.6 - continue to monitor. D/C Lr this evening. Continue to work on bowel function. Patient feels she is very close to having stool. Encourage continue work with nursing and therapist to help improve functional status. Recheck CBC in am due to anemia. Recheck BMP in am due to hyponatremia.
[2017-05-14] MEDS ORDERED: FUROSEMIDE 40 MG/4 ML INJECTION IVP ONE (15:00)
[2017-05-14 20:51] VITALS: RESP 18
[2017-05-14] MEDS: ENOXAPARIN 40 MG/0.4 ML INJECTION SQ SCH (22:17)
[2017-05-14] MEDS: Verapamil SR 120 MG TABLET (12Hr) PO SCH (22:17)
[2017-05-15] MEDS: PANTOPRAZOLE 40 MG TABLET PO SCH (06:23)
[2017-05-15] MEDS ORDERED: LEVOTHYROXINE 50 MCG TABLET PO SCH (06:30)
--- NOTE | 2017-05-15 08:16 | Orthopedic Progress Note ---
Date: Subjective/Severity of Illness: Doing well. Pain levels continue to be very low. She hasn't had a pain pill since Monday. No CP, racing HR, cough or SOA. No BM yet. She has been up to the edge of the bed and to the commode but PT hasn't done much with her since the first visit on Monday. She is using the CPM 3x a day. Orthopedic Objective PO Vital signs: Temperature 97.1 F 05/15/17 04:18 Pulse Rate 61 05/15/17 04:18 Respiratory Rate 18 05/15/17 04:18 Blood Pressure 155/71 H 05/15/17 04:18 Pulse Oximetry 95 05/15/17 04:18 Height and Weight: Height 5 ft 4 in Weight 208 lb 5.389 oz Body Mass Index 34.2 - Constitutional General Appearance: Present: alert, orientated x3, cooperative, no acute distress - Respiratory Exam Present: non-labored - Cardiovascular Exam Present: peripheral edema, pedal pulses intact - Extremities Exam Extremities: Present: pulses intact, normal capillary refill - Integumentary Exam Present: pink, warm, dry, intact - Neurological Exam Present: intact to light touch, no deficits - Psychiatric Exam Present: alert, normal affect - Labs Result Diagrams: 05/15/17 04:51 05/15/17 04:51 Abnormal lab results 05/15/17 05/15/17 Range/Units 04:51 04:51 RBC 3.11 L (4.00-5.20) M/MM3 Hgb 9.3 L (12-16) GM/DL Hct 28.3 L (36-46) % Sodium 131 L (134-144) MEQ/L Potassium 3.2 L (3.6-5) MEQ/L Chloride 96 L (98-107) MEQ/L BUN 21.0 H (7-17) MG/DL Calculated Osmolality 255 L (261-280) MOSM/KG H & H 05/11/17 05/12/17 05/13/17 Range/Units 08:23 05:25 07:08 Hgb 10.6 L 9.3 L D 8.8 L (12-16) GM/DL Hct 32.0 L 28.7 L 26.8 L (36-46) % 05/14/17 05/15/17 Range/Units 03:49 04:51 Hgb 8.6 L 9.3 L (12-16) GM/DL Hct 25.5 L 28.3 L (36-46) % Orthopedic Assessment and Plan (1) Closed fracture of lateral portion of left tibial plateau Status: Acute Qualifiers: Encounter type: subsequent encounter Assessment and Plan: Doing well POD 3, s/p left tibial plateau ORIF. Continue working with PT for gait and transfers. ROM 0-50 otherwise in immobilizer. Continue to increase ROM with CPM. NWB LLE. Ice to knee. Will continue to follow. Plan for DC once medically stable. Pt to FU with Orthopedics at home 7-10 days post op. Will plan to change burke bandage today and re-apply and adjust immobilizer. - Anticoagulation Therapy Anticoagulation: Lovenox 40 mg SQ Daily x 30 days from day of surgery (To begin post op) Hospital Course Summary Disclaimer: The visit summary below is not to be considered part of the above Progress Note. Hospital Course: 05/11/17 Admission Assessment Left tibial plateau fracture. Fall secondary to loss of footing Hyponatremia (POA) Syncopal event UTI Elevated D-Dimer HTN Hypothyroidism Anemia Obesity with BMI 34.2 SUMMARY - This is a 76 YO female with H.O HTN, that presented to the ED with a syncopal event - per description - she could have had a brief seizure but pt had no post ictal. Pt has had a previous spinal compression fracture. It appears that this fall caused her to have a tibial plateau fracture. On admission she was in distress due to pain and due to urgency (Urinary). Since admission she had a Lr catheter and was given morphine and is now very comfortable, oriented x 3 conversant, up in bed having her dinner. I have entered a request to obtain her records from [place] ([place]). Diagnosis 1) Tibial plateau fracture in a 76 YO female with possible osteoporosis - Refer to ortho evaluation - Continue immobilization - Pain management with Morphine 2) Hypertension, uncontrolled on admission now better - probably BP was high due to pain. Pt has LVH per EKG, will have to compare with older EKG. Continue with home meds and watch carefully her BP while in the hospital - Continue home medications. - Telemetry 3) UTI with Leukocytosis on admission. - UA suggest infection, WBC very high on admission probably in part due to stress. - Culture sent - Blood cultures x 2 sent. 4) Very high D-Dimer on admission with ? of hypoxemia on admission to the ED ( Per ED MD Saturation was 86% on room air on admission) - Since pt had a syncopal event - had CTA chest - negative - Doppler of upper and lower extremities were negative for DVT - Pt was on Lasix but had decreased dose - CXR negative for congestion. - Recheck CXR in the AM. 5) Hyponatremia on admission - Check Plasma and Urine Osm, TSH, Cortisol, Uric acid level. - Serial checks on Na - No fluid restriction yet. 6) Anemia on admission - if H.H drops further may consider working up now, otherwise can be deferred. 7) S/P Hip replacement in the past. CODE STATUS IS FULL PREVENTION PUD -PROTONIX DVT - LOVENOX 05/11/17 Patient feeling would be prudent to have Sx here rather that travel home with unfixed fracture. Discussed case with Dr Mandel-anticipate surgery tomorrow. Medically stable other than serum sodium low. IV Lasix given this afternoon to help waste free water. Will repeat BMP this evening. Hold Lovenox tomorrow morning in light of surgery. Start Senna Plus routinely to decrease constipation. PRN Miralax, MOM, and Dulcolax suppositories. Initiate IS for pulmonary toilet. Continue levofloxacin for urinary coverage-check urine C/S. Continue pain control - symptoms stable at this time. Recheck BMP in am due to hyponatremia. Recheck CBC in am due to anemia. 05/12/17 OP DAY - S/P ORIF left tibial plateau Lovenox has been resumed. Continue Senna Plus routinely to decrease constipation. PRN Miralax, MOM, and Dulcolax suppositories. Continue IS for pulmonary toilet. Urine culture shows ESBL resistant to levofloxacin. Will DC levofloxacin and start nitrofurantoin x 7 days for urinary coverage. Continue pain control - symptoms stable at this time. Recheck BMP in am due to hyponatremia. Recheck CBC in am due to anemia. Wean O2 as able. 05/13/17 POD #1 Serum sodium decreased and weight increasing-will give Lasix 40mg IV to help was free water. Bladder retaining-with patients decreased mobility do not feel ready for Lr removal. Blood pressure not decreased and creatinine stable. Will restart losartan. Continue bowel motivation; reminded patient about prn Miralax and MOM/Dulcolax. May change Protonix from IV to po as taking oral well. Hemoglobin trending down to 8.8 - will type and screen; potentially need transfusion. Discussed with patient about this. Continue with therapy to maximize functional status. Patient would like to have rehab closer to home; will have to see how well she does with therapy to determine if able to fly home. Recheck CBC in am due to anemia. Recheck BMP in am due to hyponatremia. 05/14/17 POD #2 Pain controlled well. Patient trying to minimize narcotic use. Serum sodium improved to 132 this am; weight reported with increased. Will repeat Lasix 40mg IV to help was free water. Potassium decreased to 3.1 - increase oral potassium to BID with meal; extra 20mEq given today with lunch. Monitor potassium supplementation as losartan restarted. Hemoglobin 8.6 - continue to monitor. D/C Lr this evening. Continue to work on bowel function. Patient feels she is very close to having stool. Encourage continue work with nursing and therapist to help improve functional status. Recheck CBC in am due to anemia. Recheck BMP in am due to hyponatremia.
[2017-05-15 08:43] VITALS: PULSE 73
[2017-05-15] MEDS: NITROFURANTOIN (MACROBID) 100 MG CAPSULE PO SCH (09:08)
[2017-05-15] MEDS: LOSARTAN 100 MG TABLET PO SCH (09:08)
[2017-05-15] MEDS: SENNA + DOCUSATE TABLET PO SCH (09:09)
[2017-05-15] MEDS: FUROSEMIDE 20 MG TABLET PO SCH (09:09)
--- NOTE | 2017-05-15 09:22 | Progress Note ---
<Genet Gregory - Last Filed: 05/15/17 12:19> Subjective: Patient is seen today lying in bed. Her is present at the bedside. She reports she is very weak. She's not used pain pills for several days. States she 's not even taking any Tylenol. Describes her pain as a "dull ache." She is concerned about getting back home. She worries about how she is going to maneuver airports/airplane. She still has a Lr in place. She's not yet had a bowel movement since before surgery. She states she is passing gas. She would like to take some MiraLAX, and would be willing to do a suppository. She's not having any chest pain or shortness of breath. No abdominal pain, no nausea or vomiting. States her appetite is "not great." She has been up to the commode at least once, and states that it took quite an effort. Objective Vital signs: Temperature 98.0 F 05/15/17 08:00 Pulse Rate 73 05/15/17 08:00 Respiratory Rate 18 05/15/17 08:00 Blood Pressure 175/67 H 05/15/17 08:00 Pulse Oximetry 94 05/15/17 08:00 Height/Weight/BMI: Height 1.63 m Weight 94.5 kg Body Mass Index 34.2 - Constitutional Present: no acute distress, well nourished, well developed - Routine Respiratory Exam Present: crackles. Absent: wheezes - Routine Cardiovascular Exam Present: RRR. Absent: murmur - Routine Abdominal Exam Present: soft, normoactive bowel sounds, non distended. Absent: tenderness - Routine Extremities Exam Present: edema (2+), normal capillary refill - Routine Skin Exam Present: dry, warm - Routine Neurological Exam Present: alert, oriented X3 - Routine Lymphatic Exam Lymphatic: Absent: adenopathy - Routine Psychiatric Exam Present: normal affect, normal thought process, cooperative Results - Labs CBC & Chem 7: 05/15/17 04:51 05/15/17 04:51 Assessment and Plan (1) Closed fracture of lateral portion of left tibial plateau Current visit: Yes Status: Acute Assessment and Plan: Assessment Left tibial plateau fracture - S/P ORIF left tibial plateau 05/12/17 Fall secondary to loss of footing hypokalemia - acute Hyponatremia (POA) Syncopal event UTI Elevated D-Dimer HTN Hypothyroidism Anemia Obesity with BMI 34.2 Plan Serum sodium improved to 132 this am; recheck BMP in am. Recheck CBC in am due to anemia. Hgb is stabilizing (9.3 today). Potassium 3.2 today. Oral potassium increased to BID yesterday with an extra 20mEq given yesterday with lunch. Monitor potassium supplementation as losartan is being restarted today. D/C Lr now as this was not done last night. Continue to work on bowel function. Dulcolax suppository ordered now. Start Miralax daily. Encourage continued work with nursing and therapist to help improve functional status. IRU screen ordered. Hope to DC to rehab today or tomorrow. . Hospital Course Summary Disclaimer: The visit summary below is not to be considered part of the above Progress Note. Hospital Course: 05/11/17 Admission Assessment Left tibial plateau fracture. Fall secondary to loss of footing Hyponatremia (POA) Syncopal event UTI Elevated D-Dimer HTN Hypothyroidism Anemia Obesity with BMI 34.2 SUMMARY - This is a 76 YO female with H.O HTN, that presented to the ED with a syncopal event - per description - she could have had a brief seizure but pt had no post ictal. Pt has had a previous spinal compression fracture. It appears that this fall caused her to have a tibial plateau fracture. On admission she was in distress due to pain and due to urgency (Urinary). Since admission she had a Lr catheter and was given morphine and is now very comfortable, oriented x 3 conversant, up in bed having her dinner. I have entered a request to obtain her records from [place] ([place]). Diagnosis 1) Tibial plateau fracture in a 76 YO female with possible osteoporosis - Refer to ortho evaluation - Continue immobilization - Pain management with Morphine 2) Hypertension, uncontrolled on admission now better - probably BP was high due to pain. Pt has LVH per EKG, will have to compare with older EKG. Continue with home meds and watch carefully her BP while in the hospital - Continue home medications. - Telemetry 3) UTI with Leukocytosis on admission. - UA suggest infection, WBC very high on admission probably in part due to stress. - Culture sent - Blood cultures x 2 sent. 4) Very high D-Dimer on admission with ? of hypoxemia on admission to the ED ( Per ED MD Saturation was 86% on room air on admission) - Since pt had a syncopal event - had CTA chest - negative - Doppler of upper and lower extremities were negative for DVT - Pt was on Lasix but had decreased dose - CXR negative for congestion. - Recheck CXR in the AM. 5) Hyponatremia on admission - Check Plasma and Urine Osm, TSH, Cortisol, Uric acid level. - Serial checks on Na - No fluid restriction yet. 6) Anemia on admission - if H.H drops further may consider working up now, otherwise can be deferred. 7) S/P Hip replacement in the past. CODE STATUS IS FULL PREVENTION PUD -PROTONIX DVT - LOVENOX 05/11/17 Patient feeling would be prudent to have Sx here rather that travel home with unfixed fracture. Discussed case with Dr Mandel-anticipate surgery tomorrow. Medically stable other than serum sodium low. IV Lasix given this afternoon to help waste free water. Will repeat BMP this evening. Hold Lovenox tomorrow morning in light of surgery. Start Senna Plus routinely to decrease constipation. PRN Miralax, MOM, and Dulcolax suppositories. Initiate IS for pulmonary toilet. Continue levofloxacin for urinary coverage-check urine C/S. Continue pain control - symptoms stable at this time. Recheck BMP in am due to hyponatremia. Recheck CBC in am due to anemia. 05/12/17 OP DAY - S/P ORIF left tibial plateau Lovenox has been resumed. Continue Senna Plus routinely to decrease constipation. PRN Miralax, MOM, and Dulcolax suppositories. Continue IS for pulmonary toilet. Urine culture shows ESBL resistant to levofloxacin. Will DC levofloxacin and start nitrofurantoin x 7 days for urinary coverage. Continue pain control - symptoms stable at this time. Recheck BMP in am due to hyponatremia. Recheck CBC in am due to anemia. 05/13/17 POD #1 Serum sodium decreased and weight increasing-will give Lasix 40mg IV to help was free water. Continue bowel motivation; reminded patient about prn Miralax and MOM/Dulcolax. May change Protonix from IV to po as taking oral well. Hemoglobin trending down to 8.8 - will type and screen; potentially need transfusion. Discussed with patient about this. Recheck CBC in am due to anemia. Recheck BMP in am due to hyponatremia. 05/14/17 POD #2 Pain controlled well. Patient trying to minimize narcotic use. Serum sodium improved to 132 this am; weight reported with increased. Will repeat Lasix 40mg IV to help was free water. Potassium decreased to 3.1 - increase oral potassium to BID with meal; extra 20mEq given today with lunch. Monitor potassium supplementation as losartan restarted. Hemoglobin 8.6 - continue to monitor. D/C Lr this evening. Recheck CBC in am due to anemia. Recheck BMP in am due to hyponatremia. 05/15/17 POD #3 Serum sodium improved to 132 this am; recheck BMP in am. Recheck CBC in am due to anemia. Hgb is stabilizing (9.3 today). Potassium 3.2 today. Oral potassium increased to BID yesterday with an extra 20mEq given yesterday with lunch. Monitor potassium supplementation as losartan is being restarted today. D/C Lr now as this was not done last night. Continue to work on bowel function. Dulcolax suppository ordered now. Start Miralax daily. <Erasmo Eisenberg D - Last Filed: 05/15/17 14:46> Objective Vital signs: Temperature 98.9 F 05/15/17 12:00 Pulse Rate 73 05/15/17 12:00 Respiratory Rate 18 05/15/17 12:00 Blood Pressure 172/84 H 05/15/17 12:00 Pulse Oximetry 93 05/15/17 12:00 Height/Weight/BMI: Height 1.63 m Weight 90.1 kg Body Mass Index 34.2 Results - Labs CBC & Chem 7: 05/15/17 04:51 05/15/17 04:51 Assessment and Plan (1) Closed fracture of lateral portion of left tibial plateau Current visit: Yes Status: Acute DVT Prophylaxis: SCD's, Lovenox Resuscitation Status: Full Code Assessment and Plan: Assessment Left tibial plateau fracture - S/P ORIF left tibial plateau 05/12/17 Fall secondary to loss of footing hypokalemia - acute Hyponatremia (POA) Syncopal event UTI Elevated D-Dimer HTN Hypothyroidism Anemia Obesity with BMI 34.2 Have independently interviewed and examined pt. Chart reviewed. Case discussed with my PA. Care plan developed with my supervision; agree with above. Doing okay. Tolerating therapy-transfers and activities still challenging. Needing extra help to be mobile. Breathing well-not feeling SOA or congested. Eating well. Did have stool this morning. Lungs: decreased, no distress CV: regular Ab: soft nt/nd +BS Plan: Adeline removed this am-monitor for retention. Sodium improving - IVF stopped. Breathing stable. Bowels have moved. Patient has been accepted to IRU. As medically stable do feel she is ready for discharge. See orders for details. - Time spent with patient discharge greater than 30 minutes Hospital Course Summary Disclaimer: The visit summary below is not to be considered part of the above Progress Note.
[2017-05-15] MEDS ORDERED: POLYETHYL GLYCOL 3350 17gm PACKET PO SCH (09:25)
[2017-05-15] MEDS ORDERED: BISACODYL 10 MG SUPPOSITORY RECTALLY ONE (10:46)
[2017-05-15 12:12] VITALS: BP 172/84; TEMP 98.9; O2SAT 93
--- NOTE | 2017-05-15 14:50 | Discharge Summary ---
Discharge Information Date of admission: 05/10/17 11:16 Anticipated date of discharge: 05/15/17 Attending Physician: Erasmo Eisenberg MD Consults: Dr Mandel - ortho PT/OT IRU Screening - Discharge Diagnosis (1) Closed fracture of lateral portion of left tibial plateau Status: Acute Discharge Diagnosis: Discharge diagnosis Left tibial plateau fracture - S/P ORIF left tibial plateau 05/12/17 Associated conditions and complications Fall secondary to loss of footing hypokalemia - acute Hyponatremia (POA) Syncopal event UTI with Ecoli - ESBL Elevated D-Dimer HTN Hypothyroidism Anemia Obesity with BMI 34.2 - Procedures Procedures: DATE OF OPERATION: 05/12/2017 PREOPERATIVE DIAGNOSIS Closed left lateral tibial plateau fracture (split depression). POSTOPERATIVE DIAGNOSIS Closed left lateral tibial plateau fracture (split depression). PROCEDURE Open reduction internal fixation left lateral tibial plateau fracture with placement of bone allograft. SURGEON Sylvester Mandel MD - Laboratory Labs: Admit Lab 05/10/17 07:36 WBC 16.0 H Hgb 11.0 L Hct 32.7 L MCV 90.1 MCH 30.3 Plt Count 207 Neutrophils % (Manual) 90.0 H Band Neutrophils % 2.0 Admit Lab 05/10/17 07:36 Sodium 128 L Potassium 4.4 Chloride 91 L Carbon Dioxide 27 Anion Gap 10 BUN 17.0 Creatinine 0.9 GFR Calculation 61 BUN/Creatinine Ratio 19 Glucose 124 H Calculated Osmolality 250 L Calcium 9.8 Total Bilirubin 1.30 AST 32 ALT 32 Troponin I < 0.012 05/15/17 04:51 05/15/17 04:51 - Radiology Radiology: Date of Exam: 05/10/17 Type of Exam: XR femur LT 2V Findings: Mildly depressed fracture of the lateral tibial plateau. No acute fracture seen in the femur. Total hip prosthesis appears intact. Impression: Closed posttraumatic lateral tibial plateau fracture. Date of Exam: 05/10/17 Type of Exam: XR tib/fib LT 2V Findings: Depressed fracture of the lateral tibial plateau. No additional acute fracture. Evidence of old distal trauma with healed fibular fracture and internally fixed medial malleolar fracture. Impression: Lateral tibial plateau fracture. Date of Exam: 05/10/17 PROCEDURE: CT LE LT wo con Findings: Depressed fracture of the lateral tibial plateau with approximately 8 mm of articular surface depression. 3 mm articular surface gap seen on coronal image #21. There is a fracture line extending through the medial tibial spine seen on coronal image #26. No additional acute fractures seen. No dislocation. Mild bony demineralization. Joint effusion present. Impression: Depressed lateral tibial plateau fracture with extension into the tibial spines. Date of Exam: 05/10/17 Type of Exam: CT angio pulm emboli Findings: Pulmonary arteries: Exam is diagnostic to the segmental pulmonary arterial level. No filling defects identified to suggest a pulmonary embolus. Subsegmental pulmonary arteries cannot be well evaluated due to bolus timing and motion artifact. Other findings: No pneumothorax. Mild medial right lower lobe atelectasis. Trace left basilar atelectasis. No focal pneumonia. Significant respiratory motion artifact limiting sensitivity. The central airways are grossly patent. No axillary or mediastinal adenopathy. Heart size is mildly enlarged without pericardial effusion. Moderate sized hiatal hernia. Upper abdomen shows no acute findings. Moderate to severe mid thoracic compression fracture of T7 could be a recent fracture given the presence of gas within the fracture cleft. Impression: 1. No pulmonary embolus. 2. Possibly recent T7 compression fracture. Date of Exam: 05/10/17 Type of Exam: US venous doppler LE BI Impression: No evidence of acute DVT in either lower limb. Date of Exam: 05/10/17 Type of Exam: US venous doppler UE BI IMPRESSION: No evidence of acute DVT in either upper extremity. Date of Exam: 05/10/17 Type of Exam: CT head/brain wo con FINDINGS: The ventricles are of normal size, shape, and contour for the patient' s age. There are scattered areas of low attenuation in the white matter which most likely represent changes from chronic microvascular ischemia. The brainstem , cerebellum, and cerebral hemispheres otherwise have a normal morphology and CT attenuation. There is no evidence of midline displacement. No hemorrhage, signs of acute territorial stroke, mass effect, mass lesions, or edema is evident. The visualized portions of the skull base, midface, and calvarium demonstrate no abnormality. The paranasal sinuses are well aerated and free of significant disease. The tympanic and mastoid cavities appear normal. IMPRESSION: No acute intracranial abnormality or hemorrhage. Date of Exam: 05/10/17 PROCEDURE: XR chest 1V Findings: Linear atelectasis or scarring in the left upper lobe. Lung ortez are otherwise clear. No pleural effusion or pneumothorax. Cardiac silhouette is at the upper limits of normal to mildly enlarged. Mediastinal contours are grossly normal. Impression: No acute cardiopulmonary disease. History of Present Illness HPI: Pt states this AM had a fall and apparently briefly lost her consciousness, states pt had "jerky" movements and is worried about a seizure (No H.O Seizures or passing out). it is unclear if pt hit her head during the fall but a head CT did not show any bleed, or fractures. After the fall pt had pain in her LEFT knee and came to the ED and was found to have a tibial fracture. CT Impression: Depressed lateral tibial plateau fracture with extension into the tibial spines. Pt was evaluated in the ED by Dr Mandel and was inmobilized. Pt also was found to have a UTI. She was admitted for medical stabilization and then surgery - she is debating if she should have surgery here in town or go back to [facility]) for surgery. Pt states she takes Lasix for blood pressure control and had reduced recently her dose as she was in a road trip. She denies having CHF, [place], CAD, CABG or having any stents. For complete details of the H&P refer to that document. Objective Vital signs: Temperature 98.9 F 05/15/17 12:00 Pulse Rate 73 05/15/17 12:00 Respiratory Rate 18 05/15/17 12:00 Blood Pressure 172/84 H 05/15/17 12:00 Pulse Oximetry 93 05/15/17 12:00 Height/Weight/BMI: Height 1.63 m Weight 90.1 kg Body Mass Index 34.2 Hospital Course This is a general summary of the patient's hospital course. For more details refer to the complete medical record. Hospital course: 05/11/17 Admission Assessment Left tibial plateau fracture. Fall secondary to loss of footing Hyponatremia (POA) Syncopal event UTI Elevated D-Dimer HTN Hypothyroidism Anemia Obesity with BMI 34.2 SUMMARY - This is a 76 YO female with H.O HTN, that presented to the ED with a syncopal event - per description - she could have had a brief seizure but pt had no post ictal. Pt has had a previous spinal compression fracture. It appears that this fall caused her to have a tibial plateau fracture. On admission she was in distress due to pain and due to urgency (Urinary). Since admission she had a Lr catheter and was given morphine and is now very comfortable, oriented x 3 conversant, up in bed having her dinner. I have entered a request to obtain her records from [place] ([place]). Diagnosis 1) Tibial plateau fracture in a 76 YO female with possible osteoporosis - Refer to ortho evaluation - Continue immobilization - Pain management with Morphine 2) Hypertension, uncontrolled on admission now better - probably BP was high due to pain. Pt has LVH per EKG, will have to compare with older EKG. Continue with home meds and watch carefully her BP while in the hospital - Continue home medications. - Telemetry 3) UTI with Leukocytosis on admission. - UA suggest infection, WBC very high on admission probably in part due to stress. - Culture sent - Blood cultures x 2 sent. 4) Very high D-Dimer on admission with ? of hypoxemia on admission to the ED ( Per ED MD Saturation was 86% on room air on admission) - Since pt had a syncopal event - had CTA chest - negative - Doppler of upper and lower extremities were negative for DVT - Pt was on Lasix but had decreased dose - CXR negative for congestion. - Recheck CXR in the AM. 5) Hyponatremia on admission - Check Plasma and Urine Osm, TSH, Cortisol, Uric acid level. - Serial checks on Na - No fluid restriction yet. 6) Anemia on admission - if H.H drops further may consider working up now, otherwise can be deferred. 7) S/P Hip replacement in the past. CODE STATUS IS FULL PREVENTION PUD -PROTONIX DVT - LOVENOX 05/11/17 Patient feeling would be prudent to have Sx here rather that travel home with unfixed fracture. Discussed case with Dr Mandel-anticipate surgery tomorrow. Medically stable other than serum sodium low. IV Lasix given this afternoon to help waste free water. Will repeat BMP this evening. Hold Lovenox tomorrow morning in light of surgery. Start Senna Plus routinely to decrease constipation. PRN Miralax, MOM, and Dulcolax suppositories. Initiate IS for pulmonary toilet. Continue levofloxacin for urinary coverage-check urine C/S. Continue pain control - symptoms stable at this time. Recheck BMP in am due to hyponatremia. Recheck CBC in am due to anemia. 05/12/17 OP DAY - S/P ORIF left tibial plateau Lovenox has been resumed. Continue Senna Plus routinely to decrease constipation. PRN Miralax, MOM, and Dulcolax suppositories. Continue IS for pulmonary toilet. Urine culture shows ESBL resistant to levofloxacin. Will DC levofloxacin and start nitrofurantoin x 7 days for urinary coverage. Continue pain control - symptoms stable at this time. Recheck BMP in am due to hyponatremia. Recheck CBC in am due to anemia. Wean O2 as able. 05/13/17 POD #1 Serum sodium decreased and weight increasing-will give Lasix 40mg IV to help was free water. Bladder retaining-with patients decreased mobility do not feel ready for Lr removal. Blood pressure not decreased and creatinine stable. Will restart losartan. Continue bowel motivation; reminded patient about prn Miralax and MOM/Dulcolax. May change Protonix from IV to po as taking oral well. Hemoglobin trending down to 8.8 - will type and screen; potentially need transfusion. Discussed with patient about this. Continue with therapy to maximize functional status. Patient would like to have rehab closer to home; will have to see how well she does with therapy to determine if able to fly home. Recheck CBC in am due to anemia. Recheck BMP in am due to hyponatremia. 05/14/17 POD #2 Pain controlled well. Patient trying to minimize narcotic use. Serum sodium improved to 132 this am; weight reported with increased. Will repeat Lasix 40mg IV to help was free water. Potassium decreased to 3.1 - increase oral potassium to BID with meal; extra 20mEq given today with lunch. Monitor potassium supplementation as losartan restarted. Hemoglobin 8.6 - continue to monitor. D/C Lr this evening. Continue to work on bowel function. Patient feels she is very close to having stool. Encourage continue work with nursing and therapist to help improve functional status. Recheck CBC in am due to anemia. Recheck BMP in am due to hyponatremia. 05/15/17 POD#3 Serum sodium improved to 132 this am; recheck BMP in am. Recheck CBC in am due to anemia. Hgb is stabilizing (9.3 today). Potassium 3.2 today. Oral potassium increased to BID yesterday with an extra 20mEq given yesterday with lunch. Monitor potassium supplementation as losartan is being restarted today. D/C Lr now as this was not done last night. Continue to work on bowel function. Dulcolax suppository ordered now. Start Miralax daily. Encourage continued work with nursing and therapist to help improve functional status. IRU screen ordered. Patient accepted to IRU. Medically stable for discharge to rehab. See orders for details. Time spent with patient: discharge greater than 30 minutes DVT Prophylaxis: SCD's, Lovenox Discharge Plan - Med Rec/Dispo [facility] Instructions: Urinary Tract Infection in Women (GEN) Prescriptions: New RX: Nitrofurantoin. [Macrobid] 100 mg PO BIDWM capsule RX: Potassium Chloride [K-Dur] 20 meq PO TIDWM tablet RX: Acetaminophen [Tylenol] 650 mg PO Q5H PRN tablet PRN Reason: Discomfort RX: Bisacodyl Supp [Dulcolax] 10 mg RECTALLY DAILY PRN supp PRN Reason: Constipation RX: Enoxaparin Sodium [Lovenox] 40 mg SQ Q24H syringe RX: Senna + Docusate [Senna Plus Tablet] 1 tab PO BID tablet RX: Hydrocodone/APAP 7.5/325 [[place] 7.5/325] 1 - 2 tab PO Q6H PRN tablet PRN Reason: Pain Continue RX: Omeprazole [Prilosec] 20 mg PO DAILY RX: Verapamil HCl [Verapamil ER Pm] 300 mg PO HS RX: Furosemide [Lasix] 20 mg PO DAILY RX: Losartan [Cozaar] 100 mg PO DAILY RX: Levothyroxine Sodium 50 mcg PO DAILY Discontinued RX: Potassium Chloride [K-Dur] 10 meq PO DAILY Discharge Instructions/Outpatient Orders: Final Provider Discharge Instructions Location: Determined By Patient - Disposition 62 To [facility] [place] - Attestation Attestation Narrative: 05/15/17 15:14 I have independently interviewed and examined patient prior to discharge. See my progress note from today for details. Medically stable for discharge to IRU.
== END 2017-05-15 15:50 | DRG 493 ==
LOC: ED 07:22 → MED 11:16 → SRG 05-12 16:06
PROVIDERS: ADMIT Internal Medicine; ATTEND Hospitalist

== ENCOUNTER 2017-05-15 15:45 | Inpatient (IN) ==
[2017-05-15 16:47] VITALS: BMI 34.9
[2017-05-15] MEDS ORDERED: ACETAMINOPHEN 325 MG TABLET PO PRN (16:58)
[2017-05-15] MEDS ORDERED: BISACODYL 10 MG SUPPOSITORY RECTALLY PRN (16:58)
[2017-05-15] MEDS: NITROFURANTOIN (MACROBID) 100 MG CAPSULE PO SCH (18:00)
[2017-05-15] MEDS: SENNA + DOCUSATE TABLET PO SCH (20:52)
[2017-05-15] MEDS: ENOXAPARIN 40 MG/0.4 ML INJECTION SQ SCH (20:54)
[2017-05-15] MEDS: Verapamil SR 120 MG TABLET (12Hr) PO SCH (20:56)
[2017-05-16] MEDS: PANTOPRAZOLE 40 MG TABLET PO SCH (06:32)
[2017-05-16] MEDS: HYDROCODONE/APAP 7.5 MG/325 MG TABLET PO PRN (06:32)
[2017-05-16] MEDS: LEVOTHYROXINE 50 MCG TABLET PO SCH (06:32)
--- NOTE | 2017-05-16 08:22 | Consult Note ---
<Johanna Cheng - Last Filed: 05/16/17 09:16> Consult Information - Data of Consult Consult date: 05/16/17 Requesting Physician: Piter Harrell MD - Consult Narrative Reason for consult: Syncope, left tibial fracture, medical management History of present illness: Angeles Rodríguez is a 76-year-old female from [place], [place] who presented to [facility] for evaluation after sustaining a fall on 05/10/17. It was reported that as she was trying to get out to f the shower, she slipped and fell. She is unsure if she hit her head. Family expressed concern about possible seizure at that time without postictal symptoms. She was brought to [facility] for evaluation left femur pain. Upon arrival to the ED, she was alert and orientated and found to have an oxygen saturation of 86% on room air with bilateral pitting edema to her lower extremities. She was placed on 2L NC with improvement in her oxygen saturations. X-rays were obtained and revealed closed posttraumatic left lateral tibial plateau fracture. Due to her hypoxia, CXR was obtained and revealed no acute cardiopulmonary abnormalities. In light of her fall with concern of syncope and possible head injury, CT head was obtained and revealed no acute intracranial abnormality or hemorrhage. Labs were obtained and revealed leukocytosis with WBC of 16.0, anemia with hemoglobin 11.0, hyponatremia with sodium of 128. BNP was elevated at 3130 and lactate was 1.3 with procalcitonin at <0.05. UA showed 3+ bacteria and culture revealed E.coli ESBL. [place] [id number] for pulmonary emboli was negative for PE but did reveal possible acute T7 compression fracture. In light of her tibial fracture with concern of syncopal episode and hypoxemia, Dr. Ortega was contacted and she was admitted into inpatient status. Dr. Mandel was consulted for orthopedic evaluation and management and she underwent an ORIF with placement of bone allograft on 05/12/17. Treatment for her UTI was initiated with levaquin. Culture later revealed multidrug resistance and treatment was changed to macrobid. During medical review, she admitted to taking Lasix for her hypertension and edema and states that she had recently self-reduced her dose to 20mg daily, instead of the 40mg daily prescribed. She denies any history of CHF, prior [place], CAD or previous cardiac surgeries. She reports stress test 4 years ago revealed 1st AV block. EKG in ED revealed probably LVH but no prior EKGs available for comparison. Throughout her admission, blood cultures were negative WBC resolved, most likely secondary to acute UTI and stress response. Hemoglobin slightly worsened following ORIF, but has since been trending up. Hyponatremia has been persistent, but again, trending up. During her acute hospitalization, she was restarted on her original dose of Lasix 40mg IV for fluid motivation resulting in hypokalemia and she was treated with oral potassium. She was evaluated and accepted to IRU on 05/15 for continued aggressive therapy and close medical monitoring. She is seen today in consultation in IRU for continuation of medical management. Overall, she is feeling good and states her pain is well controlled. Review of prior medical records and nursing notes reveal instructions from Dr. Mandel regarding surgical follow up with orthopedist of choice in [place] when she returns home. She remains immobilized with ROM of 0- 50 and non-weight bearing on the left lower extremity. Labs today revealed persistent hyponatremia with improvement at 133 as compared to admission hyponatremia. Hypokalemia noted with potassium at 3.2. BUN and SCr stable at 19 and 0.8 respectively. Leukocytosis resolved with WBC at 7.8. Hemoglobin stable and trending up at 9.8. She does admit to some lightheadedness occasionally when she sits up too quickly. No chest pain, shortness of breath, palpitations or dizziness. Vital signs stable. Appetite decreased but stable and bowels moving. [facility] Patient Stated Medical History Hypertension. Hypothyroidism. Obesity with BMI 30-35. Diverticulosis. GERD. History of 1st degree AV block. Constipation. History of syncope. Surgical History: Pt states she's had a repair of a fractured ankle, a previous hip replacement and a cystocele repair. Family History Updates: Mother - , age 83, hypertension, diabetes. Father - , age 48, AMI, CAD, hypertension, alcohol abuse. Brother - alive, age 73, diabetes, hypertension. Sister - alive, age 78, colon cancer. - Social History Smoking status: Never smoker Substance use type: does not use Alcohol intake frequency: does not drink Housing: house Household members: spouse Current occupational status: retired Current residence: Apartment/Private Home Social history: From [place]. Review of Systems All systems PM: 10-point ROS was reviewed, no additional remarkable complaints except - Constitutional Constitutional: Absent: chills, fever(s), headache(s) Comments: decreased appetite. - EENMT Eyes: Absent: blurry vision, photophobia Balance: Absent: falling to one side Nose: Absent: nosebleeds Mouth/Throat: Absent: sore throat, changes in swallowing - Cardiovascular Cardiovascular: Present: edema. Absent: chest pain, palpitations, syncope, dyspnea on exertion Vascular: Present: pedal edema - Respiratory Respiratory: Absent: cough, dyspnea, hemoptysis, dyspnea on exertion, wheezing - Gastrointestinal Gastrointestinal: Present: constipation. Absent: abdominal pain, nausea, vomiting - Musculoskeletal Musculoskeletal: Present: limited range of motion - Integumentary/Breasts Integumentary: Absent: rash, jaundice - Neurological Neurological: Absent: confusion, convulsions, dizziness - Psychiatric Psychiatric: Absent: anxiety, depression - Endocrine Endocrine: Absent: palpitations - Hematologic/Lymphatic Hematologic/Lymphatic: Present: easy bruising - Allergic/Immunologic Allergic/Immunologic: Absent: itchy eyes Medications Home Medications Medication Instructions Recorded Confirmed Type Furosemide [Lasix] 20 mg PO DAILY 05/10/17 05/15/17 History Levothyroxine Sodium 50 mcg PO DAILY 05/10/17 05/15/17 History Losartan [Cozaar] 100 mg PO DAILY 05/10/17 05/15/17 History Omeprazole [Prilosec] 20 mg PO DAILY 05/10/17 05/15/17 History Verapamil HCl [Verapamil ER Pm] 300 mg PO HS 05/10/17 05/15/17 History Allergies Allergy/AdvReac Type Severity Reaction Status Date / Time amoxicillin Allergy Rash Verified 05/10/17 07:26 Sulfa (Sulfonamide Allergy Rash Verified 05/10/17 07:26 Antibiotics) Iodinated Contrast- Oral and AdvReac Unknown Nausea and Verified 05/10/17 09:18 IV Dye Vomiting Exam Vital Signs: Temperature 98.7 F 05/15/17 16:06 Pulse Rate 69 05/15/17 19:32 Respiratory Rate 16 05/15/17 19:32 Blood Pressure 179/72 H 05/15/17 19:32 Pulse Oximetry 93 05/15/17 19:32 Height/Weight/BMI: Height 5 ft 4 in Weight 203 lb 14.841 oz Body Mass Index 34.9 - Constitutional Present: no acute distress, mild distress, well nourished, well developed, obese , cooperative - Routine HEENT Exam Head: Present: normocephalic, atraumatic Eye: Present: PERRL. Absent: conjunctival icterus ENT: Present: mucous membranes moist - Routine Neck Exam Present: supple, full ROM, trachea midline - Routine Chest/Breast/Axilla Exam Chest wall: Absent: pacemaker - Routine Respiratory Exam Present: CTA bilaterally. Absent: stridor, wheezes, crackles - Routine Cardiovascular Exam Present: RRR, S1, S2 - Routine Abdominal Exam Present: soft, normoactive bowel sounds, non distended, non tender Comments: obese. - Routine Extremities Exam Present: edema, pulses intact Comments: left leg immobilized with 2+ pedal pulses bilaterally to radial and pedal pulses. - Routine Back/Spine/Pelvis Exam Back/Spine: Present: full ROM - Routine Skin Exam Present: dry, warm Comments: afebrile. - Routine Neurological Exam Present: alert, oriented X3, moving all extremities, normal speech. Absent: altered mental status, facial asymmetry - Routine Psychiatric Exam Present: normal affect, cooperative, good insight, good judgment Results - Labs CBC & Chem 7: 05/16/17 04:41 05/16/17 04:41 Assessment and Plan (1) Closed fracture of lateral portion of left tibial plateau Current visit: No Status: Acute DVT Prophylaxis: Lovenox GI Prophylaxis: Protonix Resuscitation Status: Full Code Assessment and Plan: 05/16/17: [place]. Consult. Assessment S/P Left ORIF secondary to tibial plateau fracture, acute. Hyponatremia, present on admission, acute. Hypokalemia, acute. Anemia, present on admission, acute. UTI, E. coli ESBL, present on admission, acute. Hypertension, chronic. Hypothyroidism, chronic. Obesity with BMI 30-35, chronic. History of 1st degree AV block, chronic. Constipation, acute on chronic. Plan Agree with admission to IRU for continuation of intensive therapy and pain control for improvement in functional ability and strength. S/P ORIF by Dr. Mandel on 05/12 for left tibial plateau fracture. Maintain immobilization and non-weight bearing to left lower extremity. Recommend follow -up with orthopedist at home in [place] upon return for surgical follow up. Pain control per Dr. Harrell. Encourage bowel motivation with Miralax, MOM and senna plus. Blood pressures elevate since admission to IRU. Will continue to monitor closely. Continue home Losartan and verapamil. Continue diuresis with Lasix 40mg daily. Monitor daily weight closely. Will place on 1800cc fluid restriction in light of hyponatremia and repeat BMP in AM to monitor electrolytes and renal function. Hypokalemia noted with potassium at 3.2. Will given additional 40 mEq po now and recheck in AM. Continue scheduled KCl 20 mEq TID. Continue Lovenox for DVT prophylaxis and Protonix for GERD and GI protection. Hemoglobin stable and trending up at 9.8. Will continue to monitor periodically throughout admission. Continue Macrobid BId for E.coli ESBL. Treatment to be complete 05/21. Encourage follow up as outpatient regarding recent UTI. Monitor closely for signs of urinary retention and signs of infection. TSH stable on admission at 2.50. Continue home Synthroid. Monitor as out patient. Continue to provide safe and supportive environment. Upon discharge, patient's care will be returned to her PCP. Appreciate the opportunity to participate in Mrs. Garibay's care. Feel free to call with any questions or concern [phone]. - Time spent with patient greater than 35 minutes Hospital Course Summary Disclaimer: The visit summary below is not to be considered part of the above Progress Note. Hospital Course: 05/16/17: [place]. Consult. Assessment S/P Left ORIF secondary to tibial plateau fracture, acute. Hyponatremia, present on admission, acute. Hypokalemia, acute. Anemia, present on admission, acute. UTI, E. coli ESBL, present on admission, acute. Hypertension, chronic. Hypothyroidism, chronic. Obesity with BMI 30-35, chronic. History of 1st degree AV block, chronic. Constipation, acute on chronic. Plan Agree with admission to IRU for continuation of intensive therapy and pain control for improvement in functional ability and strength. S/P ORIF by Dr. Mandel on 05/12 for left tibial plateau fracture. Maintain immobilization and non-weight bearing to left lower extremity. Recommend follow -up with orthopedist at home in [place] upon return for surgical follow up. Pain control per Dr. Harrell. Encourage bowel motivation with Miralax, MOM and senna plus. Blood pressures elevate since admission to IRU. Will continue to monitor closely. Continue home Losartan and verapamil. Continue diuresis with Lasix 40mg daily. Monitor daily weight closely. Will place on 1800cc fluid restriction in light of hyponatremia and repeat BMP in AM to monitor electrolytes and renal function. Hypokalemia noted with potassium at 3.2. Will given additional 40 mEq po now and recheck in AM. Continue scheduled KCl 20 mEq TID. Continue Lovenox for DVT prophylaxis and Protonix for GERD and GI protection. Hemoglobin stable and trending up at 9.8. Will continue to monitor periodically throughout admission. Continue Macrobid BId for E.coli ESBL. Treatment to be complete 05/21. Encourage follow up as outpatient regarding recent UTI. Monitor closely for signs of urinary retention and signs of infection. TSH stable on admission at 2.50. Continue home Synthroid. Monitor as out patient. Continue to provide safe and supportive environment. Upon discharge, patient's care will be returned to her PCP. Appreciate the opportunity to participate in Mrs. Garibay's care. Feel free to call with any questions or concern [phone]. <Erasmo Eisenberg - Last Filed: 05/16/17 19:47> Consult Information - Data of Consult Requesting Physician: Piter Harrell MD [facility] Patient Stated Medical History Migraine Yes: at times Hypertension Yes Other Cardiology Yes: Negative stress test 4 years ago, first degree heart block Sleep Apnea No Constipation Yes: miralax 1 every 6 mo Gastroesophageal Reflux Yes Disease Other GI Yes: DIVERTICULITIS Hx Incontinence Yes Hx Urinary Tract Infection Yes: current Shingles Yes Post Menopausal Yes Exam Vital Signs: Temperature 98.5 F 05/16/17 08:58 Pulse Rate 71 05/16/17 08:58 Respiratory Rate 16 05/16/17 11:00 Blood Pressure 147/68 H 05/16/17 08:58 Pulse Oximetry 94 05/16/17 11:00 Height/Weight/BMI: Height 1.63 m Weight 92.5 kg Body Mass Index 34.9 Results - Labs CBC & Chem 7: 05/16/17 04:41 05/16/17 04:41 Assessment and Plan (1) Closed fracture of lateral portion of left tibial plateau Current visit: No Status: Acute Assessment and Plan: Assessment S/P Left ORIF secondary to tibial plateau fracture, acute. Hyponatremia, present on admission, acute. Hypokalemia, acute. Anemia, present on admission, acute. UTI, E. coli ESBL, present on admission, acute. Hypertension, chronic. Hypothyroidism, chronic. Obesity with BMI 30-35, chronic. History of 1st degree AV block, chronic. Constipation, acute on chronic. Have independently interviewed and examined pt. Chart reviewed. Case discussed with my PA. Above care plan developed with my supervision; agree with above. Tired this evening from therapy. Very difficult, but patient very motivated to get stronger to be able to return home. Trying to take things one day at a time. Pain controlled well. Eating okay-no nausea but not always able to eat full portions. Does feel she is getting enough to eat. Stools still slow-had one yesterday, but none today. Not feeling cramping or bloated to abdomen. Feels bowels about ready to move. Urinating well-no pain or burning. Breathing well-not SOA or congested. Lungs: clear bilaterally, no distress on RA CV: regular AB: soft nt/nd +BS MSE: awake alert appropriate Plan: Agree with admission of patient to IRU to maximize functional status. Encourage PT/OT to help improve her abilities. Continue with pain control. Continue Macrobid for urinary treatment. Monitor serum sodium-fluid restriction started. Watch for overdiuresis with oral Lasix. Replace potassium Continue Lovenox for DVT prevention. Will continue to follow patient while on IRU due to her medical care needs. Medically stable for IRU floor activities. Hospital Course Summary Disclaimer: The visit summary below is not to be considered part of the above Progress Note.
--- NOTE | 2017-05-16 08:40 | IRU History & Physical Report ---
[facility] Date: Chief complaint: My leg is broken HPI: Angeles is a very pleasant 76-year-old female who is visiting here from [place]. Referring physician is Dr. Erasmo Eisenberg, hospitalist. She was in a local hotel coming out of the shower. She did not realize that there was water on the floor. She walked to the towels about 12 feet away and slipped on the wet floor. She landed on her left side with resultant fracture of the left tibial plateau. She was seen in the emergency department and admitted to the hospital on 05/10/2017. She was seen by Dr. Oh who performed open reduction internal fixation of left tibial plateau fracture with bone allograft on 2016. As noted, she lives in [place] and is unable to travel at this time due to the fracture. In addition she has developed medical issues which will be described subsequently. Patient was felt to be a good candidate for inpatient rehabilitation on the basis of the need for physical therapy and occupational therapy as well as medical management. Of note, about 30 minutes after she fell her came back and noted that she was shaking all over. He wondered if she might of had a seizure. It is not clear if she was unconscious or not. She specifically recalls the entire event when she fell and specifically denies any head trauma. She denies any loss of consciousness at the time of the fall. She does however remember feeling "out of it" during the time when her checked on her about 30 minutes after the fall. She was evaluated and stabilized in the acute care hospital. CT of the head was negative. D-dimer was quite high and for this reason a CT angiogram of the chest was performed which was negative for pulmonary embolus. However there appeared to be a fracture of T7 of uncertain age, possibly subacute. In addition she has a history of hypertension. She was noted to have hemoglobin around 9 g percent and is unclear if this is chronic or acute. Finally, she has had hyponatremia and hypokalemia which will need to be monitored. At home, she does walk with a cane when she goes out shopping but otherwise does not use assistive to active assistive devices. She does live at home with her . They do have 2 steps with railing to get into her home. The following medical conditions are noted and require active monitoring and/or management: 1. Hypertension: She reports history of hypertension. Blood pressures will be monitored in view of the recent fall to observe for both hypertension or hypotension. 2. Anemia: Her hemoglobin is around 9 g percent. It is not clear if she has a history of chronic anemia or not. In view of the recent fracture, she will be observed for acute blood loss anemia. 3. Possible syncope/seizure: CT head was negative and the acute care hospital. It is possible she has had a seizure and this will need to be monitored as an inpatient. 4. Hyponatremia: Her sodium is low at 133. It is not clear if she has true sodium loss or SIADH. 5. Hypokalemia: Her potassium is low and this will need to be monitored as well. 6. UTI with ESBL: She has a documented UTI with pyuria, recent leukocytosis and a positive culture for Escherichia coli which is ESBL producing. She is on nitrofurantoin. She'll be monitored for development of sepsis. The following therapies will be needed: 1. Physical therapy: for transfers and ambulation and stairs. 2. Occupational therapy: for ADL's and transfers. 3. Medical management: for the above conditions. 4. 24 hour Rehabilitation Nursing to monitor and address the following: Blood pressure, pulse and temperature in view of the UTI and history of hypertension, monitoring of neurologic status in view of possible syncope versus seizure. [facility] Patient Stated Medical History Migraine Yes: at times Hypertension Yes Other Cardiology Yes: Negative stress test 4 years ago, first degree heart block Sleep Apnea No Constipation Yes: miralax 1 every 6 mo Gastroesophageal Reflux Yes Disease Other GI Yes: DIVERTICULITIS Hx Incontinence Yes Hx Urinary Tract Infection Yes: current Shingles Yes Post Menopausal Yes Surgical History: Pt states she's had a repair of a fractured ankle, a previous hip replacement and a cystocele repair. 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 Review of Systems - Constitutional Constitutional: Absent: anorexia, fatigue, headache(s) - EENMT Eyes: Absent: change in vision, diplopia Mouth/Throat: Absent: pain, sore throat - Cardiovascular Cardiovascular: Present: syncope. Absent: chest pain, palpitations, dyspnea on exertion, orthopnea, edema, cyanosis Rhythm: Present: regular rhythm Vascular: Absent: atrophy, intermittent claudication - Respiratory Respiratory: Absent: cough, dyspnea, hemoptysis, dyspnea on exertion - Gastrointestinal Gastrointestinal: Present: constipation. Absent: abdominal pain, change in bowel habits, change in stool character, diarrhea, dyspepsia, dysphagia - Genitourinary Genitourinary: Present: urinary incontinence (patient has urinary incontinence with coughing or sneezing. Does wear a pad or adult diaper.) - Musculoskeletal Musculoskeletal: Present: limited range of motion - Integumentary/Breasts Integumentary: Absent: alopecia, change in hair - Neurological Neurological: Present: convulsions (questionable seizure at [facility]. Does not have history of seizures.). Absent: abnormal gait, abnormal movements, abnormal speech, confusion, headache(s), lack of coordination, loss of vision, memory loss - Psychiatric Psychiatric: Absent: abnormal sleep pattern, anhedonia, anxiety, hallucinations Medications Home Medications Medication Instructions Recorded Confirmed Type Furosemide [Lasix] 20 mg PO DAILY 05/10/17 05/15/17 History Levothyroxine Sodium 50 mcg PO DAILY 05/10/17 05/15/17 History Losartan [Cozaar] 100 mg PO DAILY 05/10/17 05/15/17 History Omeprazole [Prilosec] 20 mg PO DAILY 05/10/17 05/15/17 History Verapamil HCl [Verapamil ER Pm] 300 mg PO HS 05/10/17 05/15/17 History Allergies Allergy/AdvReac Type Severity Reaction Status Date / Time amoxicillin Allergy Rash Verified 05/10/17 07:26 Sulfa (Sulfonamide Allergy Rash Verified 05/10/17 07:26 Antibiotics) Iodinated Contrast- Oral and AdvReac Unknown Nausea and Verified 05/10/17 09:18 IV Dye Vomiting Results IRU - Labs Labs: I have reviewed extensive inpatient records and studies. Exam Vital Signs: Temperature 98.7 F 05/15/17 16:06 Pulse Rate 69 05/15/17 19:32 Respiratory Rate 16 05/15/17 19:32 Blood Pressure 179/72 H 05/15/17 19:32 Pulse Oximetry 93 05/15/17 19:32 Height/Weight/BMI: Height 1.63 m Weight 92.5 kg Body Mass Index 34.9 - Constitutional Present: no acute distress, well nourished, well developed, obese - Routine HEENT Exam Head: Present: normocephalic, atraumatic. Absent: cushingoid faces, abrasion, laceration, hematoma Eye: Present: EOMI, PERRL. Absent: conjunctival icterus, scleral injection ENT: Present: mucous membranes moist, oropharynx clear - Routine Neck Exam Present: supple, full ROM - Routine Respiratory Exam Present: CTA bilaterally. Absent: accessory muscle use, dyspnea, decreased breath sounds, prolonged expiratory phase, rales, respiratory distress, rhonchi , stridor, wheezes, crackles - Routine Cardiovascular Exam Present: RRR, S1, S2, no murmur. Absent: S3, S4 - Routine Abdominal Exam Present: soft, normoactive bowel sounds, non distended, non tender. Absent: distended, rebound, guarding, organomegaly, mass, hernia - Routine Extremities Exam Present: no edema, non tender. Absent: cyanosis, clubbing, edema, full ROM - Routine Skin Exam Present: intact, dry. Absent: cyanosis, erythema, pallor - Routine Neurological Exam Present: alert, oriented X3, CN II-XII intact. Absent: sensory deficit, motor deficit - Routine Psychiatric Exam Present: normal affect, normal thought process, cooperative, good insight, good judgment. Absent: depressed, anxious Sepsis Assessment - Evaluation SIRS Criteria: none IRU A/P (1) Closed fracture of lateral portion of left tibial plateau Qualifiers: Encounter type: subsequent encounter Current visit: No Status: Acute Patient will have an individualized intensive program of physical therapy and occupational therapy designed to help her with transfers prior to returning to her home. (2) Benign essential hypertension Current visit: Yes Status: Chronic In view of the tibial plateau fracture, fall and possible syncope, we will monitor blood pressures carefully. (3) Hyponatremia Current visit: Yes Status: Acute Sodium will be monitored and may worsen in view of the pain and fracture repair and possible SIADH). (4) Hypokalemia Current visit: Yes Status: Acute Potassium will be replaced and monitored as well. (5) Acute blood loss anemia Current visit: Yes Status: Acute Hemoglobin of 9 g percent will be monitored to ensure no worsening. (6) UTI due to extended-spectrum beta lactamase (ESBL) producing Escherichia coli Current visit: Yes Status: Acute She will continue on the nitrofurantoin. She will be monitored to ensure no evidence of sepsis or worsening of infection. (7) Syncope Qualifiers: Syncope type: unspecified Qualified Code(s): R55 - Syncope and collapse Current visit: Yes Status: Acute Had an episode at the hotel when her observed her to be shaking and possibly lost consciousness. This is of unclear etiology. CT head was normal. Patient will be monitored for neurologic changes. DVT Prophylaxis: SCD's Resuscitation Status: Full Code - Course Hospital Course: Piter Harrell MD: - Interventions to Obtain Goals PT Treatment Plan: Functional Activities, Patient/Family Education OT Treatment Plan: ADL (Basic Care), Pt./Family Education Goals Progress/Modifications: The patient will undergo intensive individualized occupational therapy and physical therapy to return her to a functional status prior to her trip back home. Medical issues will be monitored as well as noted above.
--- NOTE | 2017-05-16 08:55 | IRU 24Hr Post Admit Eval ---
24 Hr Post Admission Physical - Relevant Changes Relevant Changes: No Reviewed: I have reviewed the patient's information and concur with the finding and results of the pre-admission screen. Certification: I certify the patient for rehabilitation. - Patient Condition (1) Closed fracture of lateral portion of left tibial plateau Status: Acute Qualifiers: Encounter type: subsequent encounter Code(s): S82.122A - Displaced fracture of lateral condyle of left tibia, initial encounter for closed fracture Classification: Present on IRF Admission, IRF Tx That Should Address Diagnosis, Diagnosis Requiring Medical Follow Up (2) Benign essential hypertension Status: Chronic Code(s): I10 - Essential (primary) hypertension Classification: Present on IRF Admission, Diagnosis Requiring Medical Follow Up (3) Hyponatremia Status: Acute Code(s): E87.1 - Hypo-osmolality and hyponatremia Classification: Present on IRF Admission, IRF Tx That Should Address Diagnosis, Diagnosis Requiring Medical Follow Up (4) Hypokalemia Status: Acute Code(s): E87.6 - Hypokalemia Classification: Present on IRF Admission, IRF Tx That Should Address Diagnosis, Diagnosis Requiring Medical Follow Up (5) Acute blood loss anemia Status: Acute Code(s): D62 - Acute posthemorrhagic anemia Classification: Present on IRF Admission, Diagnosis Requiring Medical Follow Up (6) UTI due to extended-spectrum beta lactamase (ESBL) producing Escherichia coli Status: Acute Code(s): N39.0 - Urinary tract infection, site not specified; A49.8 - Other bacterial infections of unspecified site; Z16.12 - Extended spectrum beta lactamase (ESBL) resistance Classification: Present on IRF Admission, IRF Tx That Should Address Diagnosis, Diagnosis Requiring Medical Follow Up (7) Syncope Status: Acute Qualifiers: Syncope type: unspecified Qualified Code(s): R55 - Syncope and collapse Code(s): R55 - Syncope and collapse Classification: Present on IRF Admission, Diagnosis Requiring Medical Follow Up - Prior Functional Status Lives With: Spouse Residence Type: Apartment/Private Home Assitive Devices: Straight Cane Prior Functional Status: Indep. at home or school, Used assistive device (when out shopping only.), Indep. w/ IADL - Current Functional Status Current Level of Function: Patient is currently nonweightbearing on the left leg secondary to the recent fracture and repair. She requires total assistance with tasks including transfers, toileting, dressing and bathing. She is minimal assistance with bed mobility and maximal assistance for transfers. She will need wheelchair training as well. Failed Alternative Therapy: Arrived from Acute Care Patient Requirements: The patient requires oversight by rehabilitation physician to manage their rehabilitation treatment plan and multidisciplinary approach to care that can only be provided in an IRF and requires a multidisciplinary approach to care, provided by professional PTs, OTs, STs, dieticians, RTs, rehabilitation nurses and is not available in lesser levels of care. Limitations Req: Mobility Impairment, ADL Impairment, Limited Mobility Physical Therapy Minutes: 90 Occupational Therapy Minutes: 90 Therapy: The patient is to receive therapy at least 5 days a week. ROM Deficit: Left Lower Extremity - Complications/Comorbidities Impact on Functional Outcomes: The low sodium and low potassium as well as recent possible syncope may affect her functional outcome with regard to muscle strength, transfers and wheelchair mobility. In addition her UTI may affect functional progress. Barriers to Discharge: Weakness, Balance, Endurance - Impact of Co-morbidities on function Please see above discussion. - Plan to Avoid Complications Plan to Avoid Complications: The patient cannot receive this care in a lesser intensive setting such as [facility] or Outpatient Therapy due to the patient requiring the following : Monitoring of blood pressures, any recurrence of neurologic change such as syncope or seizure, pain control, monitoring of sodium and potassium. .
[2017-05-16] MEDS: NITROFURANTOIN (MACROBID) 100 MG CAPSULE PO SCH ×2 (09:00→17:45)
[2017-05-16] MEDS: LOSARTAN 100 MG TABLET PO SCH (09:00)
[2017-05-16] MEDS ORDERED: FUROSEMIDE 20 MG TABLET PO SCH (09:00)
[2017-05-16] MEDS: SENNA + DOCUSATE TABLET PO SCH ×2 (09:01→21:57)
[2017-05-16] MEDS: POLYETHYL GLYCOL 3350 17gm PACKET PO SCH (09:01)
[2017-05-16] MEDS: FUROSEMIDE 20 MG TABLET PO SCH (11:23)
[2017-05-16] MEDS: Verapamil SR 120 MG TABLET (12Hr) PO SCH (21:57)
[2017-05-16] MEDS: ENOXAPARIN 40 MG/0.4 ML INJECTION SQ SCH (22:02)
[2017-05-17] MEDS: PANTOPRAZOLE 40 MG TABLET PO SCH ×2 (04:56→05:59)
[2017-05-17] MEDS: HYDROCODONE/APAP 7.5 MG/325 MG TABLET PO PRN (04:56)
[2017-05-17] MEDS: LEVOTHYROXINE 50 MCG TABLET PO SCH ×2 (04:56→05:59)
[2017-05-17] MEDS: POLYETHYL GLYCOL 3350 17gm PACKET PO SCH (09:58)
[2017-05-17] MEDS: FUROSEMIDE 20 MG TABLET PO SCH (09:58)
[2017-05-17] MEDS: NITROFURANTOIN (MACROBID) 100 MG CAPSULE PO SCH ×2 (09:58→18:04)
[2017-05-17] MEDS: LOSARTAN 100 MG TABLET PO SCH (09:58)
[2017-05-17] MEDS: SENNA + DOCUSATE TABLET PO SCH ×2 (09:59→20:09)
--- NOTE | 2017-05-17 10:25 | IRU Progress Note ---
- Subjective/Serverity of Illness Angeles was evaluated in her room with her present. She states that the pain in the left knee is fairly well-controlled. She was up about 3 times last night going to the bathroom. She has received some Lasix. In addition, her sodium is a bit worse at 132. She is now on 1800 ML fluid restriction per the hospitalist. Her potassium is now normalized. She denies any chest pain or shortness of breath. She has had no nausea and no vomiting. She is working with therapy. She states that the therapy is not excessive for her. She continues to struggle with constipation. We will make sure that she is getting MiraLAX on a daily basis. She states that she commonly does have constipation when she is not able to be as active as normally she is. Update on medical issues as follows: 1. Hypertension: Her blood pressures are borderline elevated. We will monitor this and adjust medications if needed. 2. Anemia: No further evidence of ongoing blood loss. Hemoglobin is 9.2. Denies lightheadedness. 3. Possible syncope/seizure: Upon further questioning of the , I do not think she actually had syncope and I doubt that she had a seizure. She reports no history of this. CT head was negative. There has been no further evidence of neurologic decline. 4. Hyponatremia: She is now on a fluid restriction. Sodium is a bit low at 132. 5. Hypokalemia: Her potassium is improved to normal but will be monitored. 6. UTI with ESBL: She is on Macrodantin for the UTI with Escherichia coli with ESBL. She is not grossly incontinent at present. There is no fever. No evidence of sepsis. Exam Vital Signs: Temperature 97.3 F 05/17/17 08:27 Pulse Rate 74 05/17/17 08:27 Respiratory Rate 14 05/17/17 08:27 Blood Pressure 143/73 H 05/17/17 08:27 Pulse Oximetry 94 05/17/17 08:27 Height/Weight/BMI: Height 1.63 m Weight 91.5 kg Body Mass Index 34.9 Comments: The patient is awake, alert and oriented and in no acute distress. Pupils are equal. The neck is supple. Chest: Clear to auscultation bilaterally. Cor: RR with no gallop, click nor murmur Abd: soft with normo-active bowel sounds. There are no masses, no tenderness and no guarding. Extremities: No edema is noted. Does have some significant adiposity at the ankles however. Left knee is in an immobilizer. No definite edema, redness, warmth etc. Reports the pain is reasonably well controlled. Results IRU - Labs Labs: Have reviewed labs and other progress notes etc. IRU A/P (1) Closed fracture of lateral portion of left tibial plateau Qualifiers: Encounter type: subsequent encounter Current visit: No Status: Acute She is status post repair of the left tibial plateau fracture. Pain is adequately controlled she states. (2) Benign essential hypertension Current visit: Yes Status: Chronic Blood pressures are borderline elevated which would not be unusual in the face of some degree of discomfort. We will continue to monitor and adjust meds if needed. (3) Hyponatremia Current visit: Yes Status: Acute She reports that her sodium typically goes down when she is in a stressful situation. Had the same problem several years ago when she had back pain. She is now on a fluid restriction for possible SIADH. Sodium is 132. Previously she states it has been as low as 112 several years ago. (4) Hypokalemia Current visit: Yes Status: Acute Her potassium has now normalized. (5) Acute blood loss anemia Current visit: Yes Status: Acute Hemoglobin is stable. (6) UTI due to extended-spectrum beta lactamase (ESBL) producing Escherichia coli Current visit: Yes Status: Acute There is no evidence of sepsis. She is afebrile. She is not grossly incontinent. Remains on Macrodantin. (7) Syncope Qualifiers: Syncope type: unspecified Qualified Code(s): R55 - Syncope and collapse Current visit: Yes Status: Resolved After visiting with her I doubt that she actually had true syncope. Also doubt that she had a seizure. (8) Constipation by delayed colonic transit Current visit: Yes Status: Acute She reports that she tends to get constipated if she is not terribly active. We will make sure that she is getting MiraLAX daily. In addition her pain medications could be a factor. DVT Prophylaxis: Lovenox Resuscitation Status: Full Code - Course Hospital Course: iPter Harrell MD: 05/17/17 10:28 She has had a further drop in her sodium down to 132. She reports it is been as low as 112 several years ago when she had back pain. Denies any nausea or vomiting. She is on a fluid restriction. Her potassium has normalized. Pain is adequately controlled. She is working with therapies. Does have some constipation and we will make sure she gets MiraLAX daily. - Interventions to Obtain Goals PT Treatment Plan: Balance/Proprioception, CPM, Functional Activities, Gait Training, Patient/Family Education, Therapeutic Exercise OT Treatment Plan: ADL (Basic Care), Pt./Family Education Goals Progress/Modifications: Time spent with patient and on floor reviewing data and documentin minutes Barriers to dismissal: Hyponatremia, ability to safely transfer independently. Medical decision-making: We reviewed her sodium situation. Discussed this with the patient as well. She does have some constipation and we will make sure she is on MiraLAX daily. Her blood pressures are borderline elevated. If these continue to be elevated we will adjust her medications. Please note that the patient's individual plan of care was developed and documented today, requiring review of therapy notes, medical conditions and anticipated functional recovery. This required additional medical decision making with regard to interaction of the patient's medical issues with the anticipated functional recovery. Please see separate document
--- NOTE | 2017-05-17 11:09 | Progress Note ---
Progress Note: Ms. Rodríguez slipped in her hotel room on the floor resulting in a tibial plateau fracture on the left. This was repaired with open reduction internal fixation and she is in a knee immobilizer. She is nonweightbearing on that side. For this reason she has a significant mobility limitation impairing her ability to participate in toileting, dressing, grooming and bathing in customary locations in her home. Since she is nonweightbearing, the mobility limitation cannot be resolved sufficiently by the use of a cane or a walker. The patient's home does provide adequate access between rooms with maneuvering space and surfaces for use of the manual wheelchair. The use of the manual wheelchair will definitely improve the patient's ability to participate in mobility- related activities of daily living and she will use it on a regular basis in the home. She has expressed a willingness to use a manual wheelchair that is provided in the home. In addition, the patient does have sufficient upper extremity function as well as other physical and mental capabilities to safely self-propelled in the manual wheelchair during a typical day.
--- NOTE | 2017-05-17 12:58 | IRU Plan of Care ---
U Overall Plan of Care - Date Date: 05/17/17 - Patient Impairments (1) Closed fracture of lateral portion of left tibial plateau Qualifiers: Encounter type: subsequent encounter Code(s): S82.122A - Displaced fracture of lateral condyle of left tibia, initial encounter for closed fracture Status: Acute Classification: Present on IRF Admission, IRF Tx That Should Address Diagnosis, Diagnosis Requiring Medical Follow Up (2) Benign essential hypertension Code(s): I10 - Essential (primary) hypertension Status: Chronic Classification: Present on IRF Admission, Diagnosis Requiring Medical Follow Up (3) Hyponatremia Code(s): E87.1 - Hypo-osmolality and hyponatremia Status: Acute Classification: Present on IRF Admission, IRF Tx That Should Address Diagnosis, Diagnosis Requiring Medical Follow Up (4) Hypokalemia Code(s): E87.6 - Hypokalemia Status: Acute Classification: Present on IRF Admission, IRF Tx That Should Address Diagnosis, Diagnosis Requiring Medical Follow Up (5) Acute blood loss anemia Code(s): D62 - Acute posthemorrhagic anemia Status: Acute Classification: Present on IRF Admission, Diagnosis Requiring Medical Follow Up (6) UTI due to extended-spectrum beta lactamase (ESBL) producing Escherichia coli Code(s): N39.0 - Urinary tract infection, site not specified; A49.8 - Other bacterial infections of unspecified site; Z16.12 - Extended spectrum beta lactamase (ESBL) resistance Status: Acute Classification: Present on IRF Admission, IRF Tx That Should Address Diagnosis, Diagnosis Requiring Medical Follow Up (7) Syncope Qualifiers: Syncope type: unspecified Qualified Code(s): R55 - Syncope and collapse Code(s): R55 - Syncope and collapse Status: Resolved Classification: Present on IRF Admission, Diagnosis Requiring Medical Follow Up (8) Constipation by delayed colonic transit Code(s): K59.01 - Slow transit constipation Status: Acute - Relevant Changes Relevant Changes: No Reviewed: I have reviewed the patient's information and concur with the finding and results of the pre-admission screen. Certification: I certify the patient for rehabilitation. - Medical Prognosis Medical Prognosis: Good Vital Signs: Last Vital Signs Temp 97.3 F 05/17/17 08:27 Pulse 74 05/17/17 08:27 Resp 14 05/17/17 08:27 BP 143/73 H 05/17/17 08:27 Pulse Ox 94 05/17/17 08:27 - Anticipated Interventions Anticipated Interventions: The patient requires inpatient IRF care for PT, OT, and/or ST for residuals remaining from left tibial plateau fracture resulting in muscular weakness and strength deficits. ROM Deficit: Left Lower Extremity Strength Deficits: Left Lower Extremity - Current Functional Status Failed Alternative Therapy: Arrived from Acute Care Patient Requires: The patient requires oversight by rehabilitation physician to manage their rehabilitation treatment plan and multidisciplinary approach to care that can only be provided in an IRF and requires a multidisciplinary approach to care, provided by professional PTs, OTs, STs, dieticians, RTs, rehabilitation nurses and is not available in lesser levels of care. Physical Therapy Minutes: 90 Occupational Therapy Minutes: 90 Therapy: The patient is to receive therapy at least 5 days a week. - Anticipated LOS/Outcomes Anticipated Functional Outcome: It is anticipated the patient will be modified independent level of functioning with transfers by sliding board and wheelchair propulsion until the left knee has healed. Anticipated Length of Stay (days): 7 (Days) Anticipated DC Destination: Home, Self Correction Safety Plan: The patient will be provided with the development of a Home Safety Plan for return to a home or home-like environment and and to ensure safety post discharge. - Plan to Avoid Complications Barriers to Attaining Goals: Weakness, Endurance Plan to Avoid Complications: The patient cannot receive this care in a lesser intensive setting such as Detention or Outpatient Therapy due to the patient requiring the following : Close monitoring of sodium, potassium as well as anemia. .
--- NOTE | 2017-05-17 13:03 | IRU Team Meeting ---
IRU Team Meeting - Nursing Vital Signs: Vital Signs - 24 hr 05/16/17 16:00 05/16/17 21:25 05/17/17 08:27 Temperature 98.6 F 98.2 F 97.3 F Pulse Rate 71 73 74 Respiratory Rate 16 18 14 Blood Pressure 155/79 H 116/76 143/73 H Pulse Oximetry 95 94 94 Current Medications: Acetaminophen (Tylenol) 650 mg PO Q5H PRN PRN Reason: Discomfort Acetaminophen/Hydrocodone Bitart ([place] 7.5/325) 1 - 2 tab PO Q6H PRN PRN Reason: Pain Last Admin: 05/17/17 04:56 Dose: 1 tab Bisacodyl (Dulcolax) 10 mg RECTALLY DAILY PRN PRN Reason: Constipation Enoxaparin Sodium (Lovenox) 40 mg SQ Q24H [facility] Last Admin: 05/16/17 22:02 Dose: 40 mg Furosemide (Lasix) 40 mg PO DAILY [facility] Last Admin: 05/17/17 09:58 Dose: 40 mg Levothyroxine Sodium (Synthroid) 50 mcg PO ACB [facility] Last Admin: 05/17/17 05:59 Dose: Not Given Losartan Potassium (Cozaar) 100 mg PO DAILY [facility] Last Admin: 05/17/17 09:58 Dose: 100 mg Magnesium Hydroxide (Mom) 30 ml PO DAILY PRN PRN Reason: Constipation Nitrofurantoin Macrocrystals (Macrobid) 100 mg PO BIDWM [facility] Stop: 05/21/17 23:59 Last Admin: 05/17/17 09:58 Dose: 100 mg Pantoprazole Sodium (Protonix Tab) 40 mg PO ACB [facility] Last Admin: 05/17/17 05:59 Dose: Not Given Polyethylene Glycol (Miralax) 17 gm PO DAILY [facility] Last Admin: 05/17/17 09:58 Dose: 17 gm Potassium Chloride (K-Dur) 20 meq PO TIDWM [facility] Last Admin: 05/17/17 12:51 Dose: 20 meq Senna/Docusate Sodium (Senna Plus Tablet) 1 tab PO BID [facility] Last Admin: 05/17/17 09:59 Dose: 1 tab Verapamil HCl (Calan Sr) 180 mg PO HS [facility] Last Admin: 05/16/17 21:57 Dose: 180 mg Verapamil HCl (Calan Sr) 120 mg PO HS [facility] Last Admin: 05/16/17 21:57 Dose: 120 mg Current Medical Issues: Left tibial plateau fracture, hyponatremia, anemia, UTI with Escherichia coli ( ESBL producing). Comments: I certify that I personally led the interdisciplinary team meeting and agree with comments, barriers and goals indicated. Team meeting was held in the patient's room with the patient and the following family members present: , patient's sister Ms. Rodríguez was admitted after a fall resulting and left tibial plateau fracture. She underwent surgery. She is getting started with therapies. She is doing well with the slide board for transfers. She does have some hyponatremia at 132 and was told in the past that her sodium was very low on a previous hospitalization several years ago. Her hemoglobin is around 9.5 g percent and this is being monitored. Appetite appears to be good. Pain control is reportedly adequate. - Physical Therapy Comments: Patient is working with physical therapy. She is doing well with slide board transfers. She is able to maintain nonweightbearing status for the left leg. Goal is to transfer with a walker but not to walk with a walker. She will require wheelchair ambulation at home. - Occupational Therapy Comments: She is working well with occupational therapy as well. She is working on slide board transfers and upper and lower body dressing. Family training is recommended prior to dismissal for donning and doffing the left leg immobilizer , cleansing the leg etc. - Goals Goals are as follows: 1. Transfer from wheelchair to bathroom with modified independent status 2. Accomplished to transfers within 5 minutes at a modified independent functioning 3. Family training with the immobilizer/brace 4. Stabilized hemoglobin at around 9 g percent or better 5. Improved sodium to 135 or greater. - Barriers to Discharge Barriers to Attaining Goals: Endurance, Other (confidence, maintenance of no weightbearing on left lower extremity) - Care Plan Anticipated DC Destination: Home, Self Care I have led this team conference and agree with the plan. Anticipated Length of Stay (days): 7 (Days)
[2017-05-17] MEDS: Verapamil SR 120 MG TABLET (12Hr) PO SCH (20:08)
[2017-05-17] MEDS: ENOXAPARIN 40 MG/0.4 ML INJECTION SQ SCH (20:09)
[2017-05-18] MEDS: PANTOPRAZOLE 40 MG TABLET PO SCH (05:33)
[2017-05-18] MEDS: HYDROCODONE/APAP 7.5 MG/325 MG TABLET PO PRN ×2 (05:33→22:22)
[2017-05-18] MEDS: LEVOTHYROXINE 50 MCG TABLET PO SCH (05:35)
[2017-05-18] MEDS: POLYETHYL GLYCOL 3350 17gm PACKET PO SCH (08:58)
[2017-05-18] MEDS: NITROFURANTOIN (MACROBID) 100 MG CAPSULE PO SCH ×2 (08:59→18:38)
[2017-05-18] MEDS: FUROSEMIDE 20 MG TABLET PO SCH (08:59)
[2017-05-18] MEDS: SENNA + DOCUSATE TABLET PO SCH ×2 (09:00→22:17)
[2017-05-18] MEDS: LOSARTAN 100 MG TABLET PO SCH (09:00)
--- NOTE | 2017-05-18 14:46 | Progress Note ---
<Sandar Parkinson V - Last Filed: 05/18/17 14:36> Subjective: Angeles is seen this morning during breakfast She states that overall she is doing good. She verbalizes annoyance with Lasix and frequent trips to the bathroom. Continues with hyponatremia, NA today 132. Objective Vital signs: Temperature 98.5 F 05/18/17 08:00 Pulse Rate 67 05/18/17 08:00 Respiratory Rate 16 05/18/17 08:00 Blood Pressure 141/66 H 05/18/17 08:00 Pulse Oximetry 94 05/18/17 08:00 Height/Weight/BMI: Height 1.63 m Weight 92.1 kg Body Mass Index 34.9 - Constitutional Present: no acute distress, well nourished, well developed - Routine HEENT Exam Eye: Present: EOMI ENT: Present: mucous membranes moist, dentition normal - Routine Respiratory Exam Present: CTA bilaterally. Absent: wheezes - Routine Cardiovascular Exam Present: RRR, S1, S2. Absent: murmur - Routine Abdominal Exam Present: soft, normoactive bowel sounds, non distended. Absent: tenderness - Routine Extremities Exam Present: normal capillary refill - Routine Skin Exam Present: intact, dry, warm - Routine Neurological Exam Present: alert, oriented X3, CN II-XII intact - Routine Lymphatic Exam Lymphatic: Absent: adenopathy - Routine Psychiatric Exam Present: normal affect, cooperative Results - Labs CBC & Chem 7: 05/17/17 04:31 05/17/17 04:31 Assessment and Plan (1) Closed fracture of lateral portion of left tibial plateau Current visit: No Status: Acute Assessment and Plan: Assessment S/P Left ORIF secondary to tibial plateau fracture, acute. Hyponatremia, present on admission, acute. Hypokalemia, acute. Anemia, present on admission, acute. UTI, E. coli ESBL, present on admission, acute. Hypertension, chronic. Hypothyroidism, chronic. Obesity with BMI 30-35, chronic. History of 1st degree AV block, chronic. Constipation, acute on chronic. Plan Persistent hyponatremia- NA 132 today. Will decreased fluid restriction to 1500ml/24hr Continue with Lasix for diuresis and potassium supplementation Continue Macrobid until 05/21 for tx of UTI. Continue Lovenox for DVT prevention Encourage ongoing work with PT and OT for strengthening Hospital Course Summary Disclaimer: The visit summary below is not to be considered part of the above Progress Note. Hospital Course: 05/16/17: [facility]. Consult. Assessment S/P Left ORIF secondary to tibial plateau fracture, acute. Hyponatremia, present on admission, acute. Hypokalemia, acute. Anemia, present on admission, acute. UTI, E. coli ESBL, present on admission, acute. Hypertension, chronic. Hypothyroidism, chronic. Obesity with BMI 30-35, chronic. History of 1st degree AV block, chronic. Constipation, acute on chronic. Plan Agree with admission to IRU for continuation of intensive therapy and pain control for improvement in functional ability and strength. S/P ORIF by Dr. Mandel on 05/12 for left tibial plateau fracture. Maintain immobilization and non-weight bearing to left lower extremity. Recommend follow -up with orthopedist at home in [place] upon return for surgical follow up. Pain control per Dr. Harrell. Encourage bowel motivation with Miralax, MOM and senna plus. Blood pressures elevate since admission to IRU. Will continue to monitor closely. Continue home Losartan and verapamil. Continue diuresis with Lasix 40mg daily. Monitor daily weight closely. Will place on 1800cc fluid restriction in light of hyponatremia and repeat BMP in AM to monitor electrolytes and renal function. Hypokalemia noted with potassium at 3.2. Will given additional 40 mEq po now and recheck in AM. Continue scheduled KCl 20 mEq TID. Continue Lovenox for DVT prophylaxis and Protonix for GERD and GI protection. Hemoglobin stable and trending up at 9.8. Will continue to monitor periodically throughout admission. Continue Macrobid BId for E.coli ESBL. Treatment to be complete 05/21. Encourage follow up as outpatient regarding recent UTI. Monitor closely for signs of urinary retention and signs of infection. TSH stable on admission at 2.50. Continue home Synthroid. Monitor as out patient. Continue to provide safe and supportive environment. Upon discharge, patient's care will be returned to her PCP. Appreciate the opportunity to participate in Mrs. Garibay's care. Feel free to call with any questions or concern [phone]. 05/18/17- Plan Persistent hyponatremia- NA 132 today. Will decreased fluid restriction to 1500ml/24hr Continue with Lasix for diuresis and potassium supplementation Continue Macrobid until 05/21 for tx of UTI. Continue Lovenox for DVT prevention Encourage ongoing work with PT and OT for strengthening <Erasmo Eisenberg D - Last Filed: 05/18/17 15:55> Objective Vital signs: Temperature 98.5 F 05/18/17 08:00 Pulse Rate 67 05/18/17 08:00 Respiratory Rate 16 05/18/17 08:00 Blood Pressure 141/66 H 05/18/17 08:00 Pulse Oximetry 94 05/18/17 08:00 Height/Weight/BMI: Height 1.63 m Weight 92.1 kg Body Mass Index 34.9 Results - Labs CBC & Chem 7: 05/17/17 04:31 05/17/17 04:31 Assessment and Plan (1) Closed fracture of lateral portion of left tibial plateau Current visit: No Status: Acute Resuscitation Status: Full Code Assessment and Plan: Assessment S/P Left ORIF secondary to tibial plateau fracture, acute. Hyponatremia, present on admission, acute. Hypokalemia, acute. Anemia, present on admission, acute. UTI, E. coli ESBL, present on admission, acute. Hypertension, chronic. Hypothyroidism, chronic. Obesity with BMI 30-35, chronic. History of 1st degree AV block, chronic. Constipation, acute on chronic. Have independently interviewed and examined pt. Chart reviewed. Case discussed with my [employer] ATTENDANT. Above care plan developed with my supervision; agree with above. Making gains with therapy, but still has significant worry about the airplane trip home. Has looking into the cost of a private medical flight-would be about $4500 (after a friend they know was able to get some discounts). Does worry that she will not be ready for home functioning by the time rehab her is completed - feels has a very long way to go. Ideally would like to be able to return to home area to complete rehab. Medically doing okay. Pain is controlled-not needing pain medications frequently. No nausea. Appetite increasing. Had stool this morning. Notes nocturia. Still some urinary frequency. No pain with urination. Breathing well. Lungs: clear CV: regular AB: soft nt/nd +BS MSE: awake alert appropriate Plan: Continue with IRU to maximize functional status. Advise patient to discuss her concerns about potential rehab at home with the rehab team and CM. Continue with pain control-overall doing well. Continue Macrobid. Recheck BMP in am due to hyponatremia and CBC in am due to anemia. Medically stable for IRU floor care and activities. Hospital Course Summary Disclaimer: The visit summary below is not to be considered part of the above Progress Note.
[2017-05-18] MEDS: ENOXAPARIN 40 MG/0.4 ML INJECTION SQ SCH (22:17)
[2017-05-18] MEDS: Verapamil SR 120 MG TABLET (12Hr) PO SCH (22:17)
[2017-05-19] MEDS: PANTOPRAZOLE 40 MG TABLET PO SCH (06:32)
[2017-05-19] MEDS: LEVOTHYROXINE 50 MCG TABLET PO SCH (06:33)
[2017-05-19] MEDS: HYDROCODONE/APAP 7.5 MG/325 MG TABLET PO PRN ×2 (06:36→22:48)
[2017-05-19] MEDS: POLYETHYL GLYCOL 3350 17gm PACKET PO SCH (08:43)
[2017-05-19] MEDS: NITROFURANTOIN (MACROBID) 100 MG CAPSULE PO SCH ×2 (08:47→17:59)
[2017-05-19] MEDS: SENNA + DOCUSATE TABLET PO SCH ×2 (08:50→21:32)
[2017-05-19] MEDS: FUROSEMIDE 20 MG TABLET PO SCH (08:52)
[2017-05-19] MEDS: LOSARTAN 100 MG TABLET PO SCH (08:55)
[2017-05-19] MEDS ORDERED: FALL RISK - PHARMACY CONSULT XX ONE (10:59)
--- NOTE | 2017-05-19 11:46 | IRU Progress Note ---
- Subjective/Serverity of Illness Angeles was evaluated in her room today with her present. She states that her pain is adequately controlled. She is doing therapy and is improving. Denies any diarrhea but states that she has had a bowel movement. She remains on Lasix. Her sodium remains a bit low at 133. She remains on a fluid restriction as well but states that this is fairly tolerable. Continues to be followed by the hospitalist service. Update on medical issues as follows: 1. Hypertension: Blood pressures continue to be just borderline. She is on both verapamil and low certain at reasonably good doses. We will not change things at present. However this needs to be continued to be monitored. 2. Anemia: She does not have evidence of ongoing blood loss. Her hemoglobin is remaining stable. 3. Possible syncope/seizure: I do not believe she truly has syncope nor seizure upon further description from the patient's . 4. Hyponatremia: She is on a fluid restriction and sodium is remaining a bit low at 133. 5. Hypokalemia: Her potassium is improved to normal but will be monitored. 6. UTI with ESBL: She is on Macrodantin for the UTI with Escherichia coli with ESBL. She is not grossly incontinent at present. There is no fever. No evidence of sepsis. Seems to be stable in this regard. Exam Vital Signs: Temperature 97.9 F 05/19/17 08:00 Pulse Rate 62 05/19/17 08:00 Respiratory Rate 20 05/19/17 08:00 Blood Pressure 163/61 H 05/19/17 08:00 Pulse Oximetry 94 05/19/17 08:00 Height/Weight/BMI: Height 1.63 m Weight 91.7 kg Body Mass Index 34.9 Comments: The patient is awake, alert and oriented and in no acute distress. Pupils are equal. The neck is supple. Chest: Clear to auscultation bilaterally. Cor: RR with no gallop, click nor murmur Abd: soft with normo-active bowel sounds. There are no masses, no tenderness and no guarding. Extremities: Left leg remains in immobilizer. She will get up to shower/base today with covering of the wound. Results IRU - Labs Labs: Reviewed her lab work as well as other progress notes. IRU A/P (1) Closed fracture of lateral portion of left tibial plateau Qualifiers: Encounter type: subsequent encounter Current visit: No Status: Acute She states that the pain is adequately controlled at present. She remains in the immobilizer. Continues to work with therapy and is making improvements. (2) Benign essential hypertension Current visit: Yes Status: Chronic Again her blood pressure is a bit borderline elevated. However this may be due to the current situation with her recent fracture and working hard. We will continue to monitor. She is on losartan and verapamil. We could add a beta sandra although I would be concerned about that with the verapamil. (3) Hyponatremia Current visit: Yes Status: Acute Hospitalists are addressing. She is on a fluid restriction. Sodium is 133 which is slightly up from 132. (4) Hypokalemia Current visit: Yes Status: Resolved Potassium has normalized at present. (5) Acute blood loss anemia Current visit: Yes Status: Acute Hemoglobin is stable. No evidence of ongoing blood loss but likely had some blood loss at the time of the fracture. (6) UTI due to extended-spectrum beta lactamase (ESBL) producing Escherichia coli Current visit: Yes Status: Acute Has no new symptoms with regard to her UTI. Tolerating Macrodantin well. No diarrhea. (7) Syncope Qualifiers: Syncope type: unspecified Qualified Code(s): R55 - Syncope and collapse Current visit: Yes Status: Resolved (8) Constipation by delayed colonic transit Current visit: Yes Status: Acute DVT Prophylaxis: Lovenox Resuscitation Status: Full Code - Course Hospital Course: Piter Harrell MD: 05/17/17 10:28 She has had a further drop in her sodium down to 132. She reports it is been as low as 112 several years ago when she had back pain. Denies any nausea or vomiting. She is on a fluid restriction. Her potassium has normalized. Pain is adequately controlled. She is working with therapies. Does have some constipation and we will make sure she gets MiraLAX daily. 05/19/17 11:48 Sodium slightly improved at 133. She is tolerating the fluid restriction adequate. Potassium remains normal eyes. Pain is adequately controlled. She is having bowel movements. She is working well with therapy and is improving. - Interventions to Obtain Goals PT Treatment Plan: Balance/Proprioception, CPM, Functional Activities, Gait Training, Patient/Family Education, Therapeutic Exercise OT Treatment Plan: ADL (Basic Care), Pt./Family Education Goals Progress/Modifications: Time spent with patient and on floor reviewing data and documentin minutes Barriers to dismissal: Continues to require work with transfers etc. Medical decision-making: Review blood pressures. They're running borderline high. Reviewed medications. Considered adding on a low-dose beta sandra but I' m concerned with the use of verapamil. We will continue to monitor at present and blood pressures may be up simply due to the current situation. She remains on Macrodantin without fever. No evidence of gross incontinence. Also discussed questions with the patient and family that they raised today.
[2017-05-19] MEDS: Verapamil SR 120 MG TABLET (12Hr) PO SCH (20:04)
[2017-05-19] MEDS: ENOXAPARIN 40 MG/0.4 ML INJECTION SQ SCH (20:04)
[2017-05-20] MEDS: HYDROCODONE/APAP 7.5 MG/325 MG TABLET PO PRN (06:02)
[2017-05-20] MEDS: LEVOTHYROXINE 50 MCG TABLET PO SCH (06:03)
[2017-05-20] MEDS: PANTOPRAZOLE 40 MG TABLET PO SCH (06:03)
[2017-05-20] MEDS: NITROFURANTOIN (MACROBID) 100 MG CAPSULE PO SCH ×2 (08:31→17:36)
[2017-05-20] MEDS: POLYETHYL GLYCOL 3350 17gm PACKET PO SCH (08:31)
[2017-05-20] MEDS: LOSARTAN 100 MG TABLET PO SCH (08:31)
[2017-05-20] MEDS: FUROSEMIDE 20 MG TABLET PO SCH (08:32)
[2017-05-20] MEDS: SENNA + DOCUSATE TABLET PO SCH ×2 (08:32→20:06)
[2017-05-20] MEDS: ENOXAPARIN 40 MG/0.4 ML INJECTION SQ SCH (20:05)
[2017-05-20] MEDS: Verapamil SR 120 MG TABLET (12Hr) PO SCH (20:05)
[2017-05-21] MEDS: LEVOTHYROXINE 50 MCG TABLET PO SCH (05:52)
[2017-05-21] MEDS: PANTOPRAZOLE 40 MG TABLET PO SCH (05:52)
[2017-05-21] MEDS: POLYETHYL GLYCOL 3350 17gm PACKET PO SCH (08:28)
[2017-05-21] MEDS: SENNA + DOCUSATE TABLET PO SCH (08:29)
[2017-05-21] MEDS: NITROFURANTOIN (MACROBID) 100 MG CAPSULE PO SCH ×2 (08:44→17:07)
[2017-05-21] MEDS: LOSARTAN 100 MG TABLET PO SCH (08:44)
[2017-05-21] MEDS: FUROSEMIDE 20 MG TABLET PO SCH (08:47)
[2017-05-21] MEDS ORDERED: INFLUENZA VAC High Dose 2017-18 (Fluzone HD*) (>=65yo) 0.5ml IM ONE (10:47)
[2017-05-21] MEDS ORDERED: INFLUENZA VAC. INJ. ADMIN CHARGE INJ ONE (14:00)
[2017-05-21] MEDS ORDERED: SENNA + DOCUSATE TABLET PO PRN (14:46)
[2017-05-21] MEDS ORDERED: POLYETHYL GLYCOL 3350 17gm PACKET PO PRN (14:46)
[2017-05-21] MEDS ORDERED: CHOLESTYRAMINE LIGHT 4 G PACKET PO PRN (16:14)
--- NOTE | 2017-05-21 16:19 | Progress Note ---
Subjective: Angeles is seen today in follow up. She reports frequent, loose stool. Not watery, but is painful due to frequency. Reports that she feels this is due to multiple laxatives, which has been changed to PRN today. She is requesting something to "bulk up" her stools. She is also hoping we can DC fluid restriction and would like sodium rechecked. Chart is reviewed. No other acute c/o reported. Objective Vital signs: Temperature 98.3 F 05/21/17 08:00 Pulse Rate 61 05/21/17 08:00 Respiratory Rate 16 05/21/17 08:00 Blood Pressure 145/67 H 05/21/17 08:00 Pulse Oximetry 92 05/21/17 08:00 Height/Weight/BMI: Height 1.63 m Weight 88.5 kg Body Mass Index 34.9 - Constitutional Present: no acute distress, well nourished, well developed, obese, cooperative - Routine HEENT Exam Head: Present: normocephalic, atraumatic Eye: Present: EOMI, PERRL ENT: Present: mucous membranes moist - Routine Respiratory Exam Present: decreased breath sounds, CTA bilaterally. Absent: rhonchi, wheezes, crackles - Routine Cardiovascular Exam Present: RRR, S1, S2, no murmur - Routine Abdominal Exam Present: soft, normoactive bowel sounds, non distended, non tender - Routine Extremities Exam Present: edema (Trace LE edema vs. obesit) - Routine Musculoskeletal Exam Musculoskeletal: Present: no clubbing or cyanosis - Routine Skin Exam Present: intact, dry, warm - Routine Neurological Exam Present: alert, oriented X3 - Routine Psychiatric Exam Present: normal affect, normal thought process Results - Labs CBC & Chem 7: 05/19/17 04:32 05/19/17 04:31 Assessment and Plan (1) Closed fracture of lateral portion of left tibial plateau Current visit: No Status: Acute DVT Prophylaxis: Lovenox GI Prophylaxis: Protonix Resuscitation Status: Full Code Assessment and Plan: Assessment S/P Left ORIF secondary to tibial plateau fracture, acute. Hyponatremia, present on admission, acute. Hypokalemia, acute. Anemia, present on admission, acute. UTI, E. coli ESBL, present on admission, acute. Hypertension, chronic. Hypothyroidism, chronic. Obesity with BMI 30-35, chronic. History of 1st degree AV block, chronic. Constipation, acute on chronic. Plan: 05/21/17 Slow recovery, but is making gains. She is worried about how to get home [place]. Medical flights are cost prohibitive. She is hoping to DC fluid restriction. Will liberalize to 1800ml. Recheck sodium in AM. She is reporting loose stool. DC laxative, add cholestyramine. If no improvement, check stool panel. She is afebrile, no abdominal pain reported. BP is fairly well controlled. Some random mild elevations- monitor. s/p treatment for E.Coli. She does have GERD and is on chronic PPI therapy at home. Repeat labs in AM. Pt is hoping to return home, but will need assistance with flight. Could consider contacting [employer] for donated flight home. She may need a person to travel with her to assist with needs. [employer]: Call toll free: [phone] Email: [email or web address] Course Summary Disclaimer: The visit summary below is not to be considered part of the above Progress Note. Hospital Course: 05/16/17: [facility]. Consult. Assessment S/P Left ORIF secondary to tibial plateau fracture, acute. Hyponatremia, present on admission, acute. Hypokalemia, acute. Anemia, present on admission, acute. UTI, E. coli ESBL, present on admission, acute. Hypertension, chronic. Hypothyroidism, chronic. Obesity with BMI 30-35, chronic. History of 1st degree AV block, chronic. Constipation, acute on chronic. Plan Agree with admission to IRU for continuation of intensive therapy and pain control for improvement in functional ability and strength. S/P ORIF by Dr. Mandel on 05/12 for left tibial plateau fracture. Maintain immobilization and non-weight bearing to left lower extremity. Recommend follow -up with orthopedist at home in [place] upon return for surgical follow up. Pain control per Dr. Harrell. Encourage bowel motivation with Miralax, MOM and senna plus. Blood pressures elevate since admission to IRU. Will continue to monitor closely. Continue home Losartan and verapamil. Continue diuresis with Lasix 40mg daily. Monitor daily weight closely. Will place on 1800cc fluid restriction in light of hyponatremia and repeat BMP in AM to monitor electrolytes and renal function. Hypokalemia noted with potassium at 3.2. Will given additional 40 mEq po now and recheck in AM. Continue scheduled KCl 20 mEq TID. Continue Lovenox for DVT prophylaxis and Protonix for GERD and GI protection. Hemoglobin stable and trending up at 9.8. Will continue to monitor periodically throughout admission. Continue Macrobid BId for E.coli ESBL. Treatment to be complete 05/21. Encourage follow up as outpatient regarding recent UTI. Monitor closely for signs of urinary retention and signs of infection. TSH stable on admission at 2.50. Continue home Synthroid. Monitor as out patient. Continue to provide safe and supportive environment. Upon discharge, patient's care will be returned to her PCP. Appreciate the opportunity to participate in Mrs. Garibay's care. Feel free to call with any questions or concern [phone]. 05/21/17- Plan Persistent hyponatremia- NA 132 today. Will decreased fluid restriction to 1500ml/24hr Continue with Lasix for diuresis and potassium supplementation Continue Macrobid until 05/21 for tx of UTI. Continue Lovenox for DVT prevention Encourage ongoing work with PT and OT for strengthening 05/21/17 16:29 Slow recovery, but is making gains. She is worried about how to get home to [place]. Medical flights are cost prohibitive. She is hoping to DC fluid restriction. Will liberalize to 1800ml. Recheck sodium in AM. She is reporting loose stool. DC laxative, add cholestyramine. If no improvement, check stool panel. She is afebrile, no abdominal pain reported. BP is fairly well controlled. Some random mild elevations- monitor. s/p treatment for E.Coli. She does have GERD and is on chronic PPI therapy at home. Repeat labs in AM. Pt is hoping to return home, but will need assistance with flight. Could consider contacting [employer] for donated flight home. She may need a person to travel with her to assist with needs. [employer]: Call toll free: [phone] Email: [email or web address]
[2017-05-21] MEDS: ENOXAPARIN 40 MG/0.4 ML INJECTION SQ SCH (20:15)
[2017-05-21] MEDS: Verapamil SR 120 MG TABLET (12Hr) PO SCH (20:15)
[2017-05-21] MEDS: HYDROCODONE/APAP 7.5 MG/325 MG TABLET PO PRN (23:36)
[2017-05-22] MEDS: PANTOPRAZOLE 40 MG TABLET PO SCH (05:42)
[2017-05-22] MEDS: LEVOTHYROXINE 50 MCG TABLET PO SCH (05:42)
[2017-05-22] MEDS: LOSARTAN 100 MG TABLET PO SCH (08:58)
[2017-05-22] MEDS: FUROSEMIDE 20 MG TABLET PO SCH (08:59)
[2017-05-22] MEDS: HYDROCODONE/APAP 5mg/325mg TABLET PO PRN ×2 (10:46→21:21)
--- NOTE | 2017-05-22 10:52 | IRU Progress Note ---
- Subjective/Serverity of Illness Angeles was experiencing some degree of discomfort today in the left leg with regard to transfers. However overall she states that her pain is been well controlled. Hydrocodone 7.5 mg is ordered for her and frequently she will request a lower dose. We will change the dose to 5 mg. She has trouble keeping the left leg straight and we encouraged her to make every effort to do that with the knee immobilizer in place. There is no edema in the left lower extremity. I have reviewed therapy notes. She is certainly improving particularly with lower body dressing as well as transfers. Today she was able to transfer/pivot from chair to toilet with maximal assistance of 1. This was a significant improvement for her. She complains of loose stools which have improved. She requests that we not give her routine stool softeners nor MiraLAX. Finally, we did discuss her transfer which she had requested to go back to [place] to skilled care. They checked into the plane and it is too small for her to get in by herself. They're looking at other options but right now she would like to stay here and continue rehabilitation which we would certainly recommend as well. She was seen over the weekend by the hospitalists. Fluid restriction was liberalized to 800 cc per 24 hours. Sodium remains stable at 135. Update on medical issues as follows: 1. Hypertension: Overall blood pressures are around 142 just slightly higher. We will continue current medications at present and monitor. I imagine this will improve when she is in her normal environment without as much discomfort etc. 2. Anemia: She does not have evidence of ongoing blood loss. Once again her hemoglobin is within the normal range. 3. Possible syncope/seizure: I do not believe she truly has syncope nor seizure upon further description from the patient's . 4. Hyponatremia: Fluid restriction was liberalized to 1800 cc per 24 hours. Her sodium is now normal at 135. 5. Hypokalemia: Potassium was reassessed and is now normal. 6. UTI with ESBL: She has completed her course of Macrodantin. She is not grossly incontinent. She has no new symptoms of UTI and she is afebrile. Exam Vital Signs: Temperature 97.6 F 05/22/17 08:00 Pulse Rate 72 05/22/17 08:00 Respiratory Rate 16 05/22/17 08:00 Blood Pressure 143/67 H 05/22/17 08:00 Pulse Oximetry 95 05/22/17 08:00 Height/Weight/BMI: Height 1.63 m Weight 89.3 kg Body Mass Index 34.9 Comments: The patient is awake, alert and oriented and in no acute distress. Pupils are equal. The neck is supple. Chest: Clear to auscultation bilaterally. Cor: RR with no gallop, click nor murmur Abd: soft with normo-active bowel sounds. There are no masses, no tenderness and no guarding. Extremities: No edema is noted. In particular, the left lower extremity does not reveal any edema. She remains in a knee immobilizer. There are good pulses in both ankles. No cyanosis is present. Results IRU - Labs Labs: I reviewed all labs as well as other progress notes and therapy notes. IRU A/P (1) Closed fracture of lateral portion of left tibial plateau Qualifiers: Encounter type: subsequent encounter Current visit: No Status: Acute Overall, pain control is quite good. She would like a lower dose of her narcotic as requested half tablets. We will reduce the dose to 5 mg from 7.5. She reports difficulty maintaining straight leg despite the knee immobilizer. We encouraged her to do the best she can in this regard. (2) Benign essential hypertension Current visit: Yes Status: Chronic Again reviewed blood pressures most of which are just over 140 systolic. Denies any lightheadedness. Denies headaches. At present we will not adjust medications but we will give a close eye on her blood pressure which remains a bit borderline elevated. (3) Hyponatremia Current visit: Yes Status: Acute Her fluid restriction has been liberalized to 1800 cc per 24 hours. Repeat sodium is now normal at 135. (4) Hypokalemia Current visit: Yes Status: Resolved (5) Acute blood loss anemia Current visit: Yes Status: Acute Hemoglobin was reassessed and is stable. No evidence of further bleeding. (6) UTI due to extended-spectrum beta lactamase (ESBL) producing Escherichia coli Current visit: Yes Status: Resolved She has now completed her course of Macrodantin. No new symptoms of UTI are reported. She is afebrile. (7) Syncope Qualifiers: Syncope type: unspecified Qualified Code(s): R55 - Syncope and collapse Current visit: Yes Status: Resolved (8) Constipation by delayed colonic transit Current visit: Yes Status: Resolved Reports development of some loose stools recently although improved. Her stool softeners etc. have been discontinued. She has MiraLAX and Dulcolax available as needed but these are not being given routinely. DVT Prophylaxis: Lovenox Resuscitation Status: Full Code - Course Hospital Course: Piter Harrell MD: 05/17/17 10:28 She has had a further drop in her sodium down to 132. She reports it is been as low as 112 several years ago when she had back pain. Denies any nausea or vomiting. She is on a fluid restriction. Her potassium has normalized. Pain is adequately controlled. She is working with therapies. Does have some constipation and we will make sure she gets MiraLAX daily. 05/19/17 11:48 Sodium slightly improved at 133. She is tolerating the fluid restriction adequate. Potassium remains normal eyes. Pain is adequately controlled. She is having bowel movements. She is working well with therapy and is improving. 05/22/17 10:55 She is improving with therapy. She has decided to stay here for the time being due to difficulty with transportation back to [place]. She is especially improving regarding lower body dressing and transfers. Pain is adequately controlled and she would like a lower dose of [facility]. Has developed some loose stools but these are better since the stool softeners etc. have been discontinued. Sodium is improved at 135. Fluid restriction liberalized. - Interventions to Obtain Goals PT Treatment Plan: Balance/Proprioception, CPM, Functional Activities, Gait Training, Patient/Family Education, Therapeutic Exercise OT Treatment Plan: ADL (Basic Care), Pt./Family Education Goals Progress/Modifications: Time spent with patient and on floor reviewing data and documentin min Barriers to dismissal: Endurance, strength, confidence Medical decision-making: We reassessed her bowel situation. Has had some loose stools which could be a sign of C. difficile colitis. However these have abated since the stool softeners etc. have been discontinued. We'll monitor this carefully and if she continues to have loose stools then further evaluation will be needed. Secondly, we reassessed her pain management. She has requested a lower dose of the hydrocodone and this is provided. Also discussed with her the issue of transportation and transfer back to [place]. Assisted with medical decision-making in this regard.
[2017-05-22] MEDS: Verapamil SR 120 MG TABLET (12Hr) PO SCH (20:06)
[2017-05-22] MEDS: ENOXAPARIN 40 MG/0.4 ML INJECTION SQ SCH (20:07)
[2017-05-23] MEDS: HYDROCODONE/APAP 5mg/325mg TABLET PO PRN (03:36)
[2017-05-23] MEDS: LEVOTHYROXINE 50 MCG TABLET PO SCH (05:49)
[2017-05-23] MEDS: PANTOPRAZOLE 40 MG TABLET PO SCH (05:49)
[2017-05-23] MEDS: FUROSEMIDE 20 MG TABLET PO SCH (08:27)
[2017-05-23] MEDS: LOSARTAN 100 MG TABLET PO SCH (08:28)
--- NOTE | 2017-05-23 09:50 | IRU Progress Note ---
- Subjective/Serverity of Illness Angeles was evaluated in her room on the IRU. and therapist are present. She did not sleep well last night. We have decreased her Winner per request of the patient to 5 mg. However she would like to 7.5 mg at nighttime on an as-needed basis. We will make this change in have both available. Overall she is doing well with regard to pain control however. Her frequent loose stools have improved since discontinuing the stool softener etc. Her appetite is reasonably good. She does appear to be a bit pale although palm color is adequate. Update on medical issues as follows: 1. Hypertension: Again blood pressures are borderline elevated. One value was down to 98 systolic. Otherwise up to 145. We will work on pain control and not change her blood pressure medications at present. 2. Anemia: Hemoglobin has been stable around 9-9.1 g percent. No evidence of acute continued blood loss. 3. Possible syncope/seizure: I do not believe she truly has syncope nor seizure upon further description from the patient's . 4. Hyponatremia: Fluid restriction was liberalized to 1800 cc per 24 hours. We will reassess her sodium down the road. 5. Hypokalemia: Potassium was reassessed and is now normal. 6. UTI with ESBL: She has completed her course of Macrodantin. She is not grossly incontinent. She has no new symptoms of UTI and she is afebrile. Exam Vital Signs: Temperature 98.7 F 05/23/17 06:00 Pulse Rate 62 05/23/17 06:00 Respiratory Rate 18 05/23/17 06:00 Blood Pressure 145/67 H 05/23/17 06:00 Pulse Oximetry 94 05/23/17 06:00 Height/Weight/BMI: Height 1.63 m Weight 89.3 kg Body Mass Index 34.9 Comments: The patient is awake, alert and oriented and in no acute distress. Pupils are equal. The neck is supple. Chest: Clear to auscultation bilaterally. Cor: RR with no gallop, click nor murmur Abd: soft with normo-active bowel sounds. There are no masses, no tenderness and no guarding. Extremities: No edema is noted. There are good pulses in both ankles. No cyanosis is present. Results IRU - Labs Labs: Reviewed recent lab and other progress notes as well as therapy notes. IRU A/P (1) Closed fracture of lateral portion of left tibial plateau Qualifiers: Encounter type: subsequent encounter Current visit: No Status: Acute Some increased pain at night is noted. She would like a higher dose of the Winner. This will be provided as an optional basis. Otherwise denies any edema. During the daytime her pain seems to be adequately controlled. (2) Benign essential hypertension Current visit: Yes Status: Chronic Continue to monitor blood pressures. Got down to 98 systolic. Most of the time it is over 140. Again if her pain is adequately controlled I think this will come down. (3) Hyponatremia Current visit: Yes Status: Acute Most recent sodium was normal. We will reassess. (4) Hypokalemia Current visit: Yes Status: Resolved (5) Acute blood loss anemia Current visit: Yes Status: Acute (6) UTI due to extended-spectrum beta lactamase (ESBL) producing Escherichia coli Current visit: Yes Status: Resolved (7) Syncope Qualifiers: Syncope type: unspecified Qualified Code(s): R55 - Syncope and collapse Current visit: Yes Status: Resolved (8) Constipation by delayed colonic transit Current visit: Yes Status: Resolved DVT Prophylaxis: Lovenox Resuscitation Status: Full Code - Course Hospital Course: Piter Harrell MD: 05/17/17 10:28 She has had a further drop in her sodium down to 132. She reports it is been as low as 112 several years ago when she had back pain. Denies any nausea or vomiting. She is on a fluid restriction. Her potassium has normalized. Pain is adequately controlled. She is working with therapies. Does have some constipation and we will make sure she gets MiraLAX daily. 05/19/17 11:48 Sodium slightly improved at 133. She is tolerating the fluid restriction adequate. Potassium remains normal eyes. Pain is adequately controlled. She is having bowel movements. She is working well with therapy and is improving. 05/22/17 10:55 She is improving with therapy. She has decided to stay here for the time being due to difficulty with transportation back to [place]. She is especially improving regarding lower body dressing and transfers. Pain is adequately controlled and she would like a lower dose of Winner. Has developed some loose stools but these are better since the stool softeners etc. have been discontinued. Sodium is improved at 135. Fluid restriction liberalized. 05/23/17 09:51 She is improving with upper and lower body dressings. Pain control at nighttime is suboptimal. Blood pressures remain borderline elevated. Remaining on fluid restriction at 1800 cc/24 hours - Interventions to Obtain Goals PT Treatment Plan: Balance/Proprioception, CPM, Functional Activities, Gait Training, Patient/Family Education, Therapeutic Exercise OT Treatment Plan: ADL (Basic Care), Pt./Family Education Goals Progress/Modifications: Time spent with patient and on floor reviewing data and documentin min Barriers to dismissal: Nonweightbearing status, ADLs, confidence Medical decision-making: Discussed with patient in detail pain management. We will make 5 and 7.5 mg Winner available as needed. In particular at nighttime she will need the 7.5 mg. Also reviewed blood pressures and considered increasing blood pressure medication but right now we will again hold off. Finally, discussed placement with patient and .
[2017-05-23] MEDS ORDERED: HYDROCODONE/APAP 7.5 MG/325 MG TABLET PO PRN (09:52)
--- NOTE | 2017-05-23 14:26 | IRU Team Meeting ---
IRU Team Meeting - Nursing Vital Signs: Vital Signs - 24 hr 05/22/17 16:00 05/22/17 22:22 05/23/17 06:00 Temperature 98.3 F 98.4 F 98.7 F Pulse Rate 65 69 62 Respiratory Rate 16 16 18 Blood Pressure 143/69 H 98/55 145/67 H Pulse Oximetry 95 93 94 Current Medications: Acetaminophen (Tylenol) 650 mg PO Q5H PRN PRN Reason: Discomfort Hydrocodone Bitart/Acetaminophen ([place] 5/325) 1 tab PO Q4H PRN PRN Reason: Pain Last Admin: 05/23/17 03:36 Dose: 1 tab Hydrocodone Bitart/Acetaminophen ([place] 7.5/325) 1 tab PO Q4H PRN PRN Reason: Pain Bisacodyl (Dulcolax) 10 mg RECTALLY DAILY PRN PRN Reason: Constipation Cholestyramine Resin (Questran Light) 4 g PO Q6H PRN PRN Reason: Diarrhea Enoxaparin Sodium (Lovenox) 40 mg SQ Q24H [facility] Last Admin: 05/22/17 20:07 Dose: 40 mg Furosemide (Lasix) 40 mg PO DAILY [facility] Last Admin: 05/23/17 08:27 Dose: 40 mg Levothyroxine Sodium (Synthroid) 50 mcg PO ACB [facility] Last Admin: 05/23/17 05:49 Dose: 50 mcg Losartan Potassium (Cozaar) 100 mg PO DAILY [facility] Last Admin: 05/23/17 08:28 Dose: 100 mg Magnesium Hydroxide (Mom) 30 ml PO DAILY PRN PRN Reason: Constipation Pantoprazole Sodium (Protonix Tab) 40 mg PO ACB [facility] Last Admin: 05/23/17 05:49 Dose: 40 mg Polyethylene Glycol (Miralax) 17 gm PO DAILY PRN Potassium Chloride (K-Dur) 20 meq PO BIDWM [facility] Last Admin: 05/23/17 08:27 Dose: 20 meq Senna/Docusate Sodium (Senna Plus Tablet) 1 tab PO BID PRN Verapamil HCl (Calan Sr) 180 mg PO HS [facility] Last Admin: 05/22/17 20:07 Dose: 180 mg Verapamil HCl (Calan Sr) 120 mg PO HS [facility] Last Admin: 05/22/17 20:06 Dose: 120 mg Current Medical Issues: Hypertension, anemia, electrolyte abnormalities, pain control Comments: I certify that I personally led the interdisciplinary team meeting and agree with comments, barriers and goals indicated. Team meeting was held in the patient's room with the patient and the following family members present: . Anegles continues to improve. She has completed her antibiotic for her urinary tract infection. She is eating reasonably well. Her hemoglobin remains stable although does have anemia. Her endurance is reduced and she has reduced confidence in transfers although is improving. Her electrolytes are normal. She is on a fluid restriction. Pain medication has been adjusted. She can have either the 5 mg or the 7.5 mg [place] for the pain. Discussed issues of transfers and transportation back to [place] etc. - Physical Therapy Comments: She is standby assistance for bed/chair/wheelchair transfers. She is nonweightbearing on the left leg. She is standby assistance for wheelchair propulsion at 160 feet approximately. Denies any dyspnea. She is improving with therapy. - Occupational Therapy Comments: She is standby assistance for upper body dressing, moderate assistance for lower body dressing, minimal assistance for bathing and moderate assistance for toileting. She is transferring with a slide board. Does require assistance for dressing as well as left knee immobilizer changing etc. - Goals Goals last week: 1. Bed/chair/wheelchair transfer with modified independent functioning. She is close to that with standby assistance. 2. To transfers with modified independent functioning within 5 minutes-has met this goal 3. Family training with regard to the immobilizer- has watched the immobilizer being changed back continues to need training in this if she transfers home after this stay. Goals this week: 1. Family training regarding the immobilizer 2. Increased confidence with regard to transfers 3. Lower body dressing with minimal assistance. - Barriers to Discharge Barriers to Attaining Goals: Endurance - Care Plan Anticipated DC Destination: Home, Self Care I have led this team conference and agree with the plan. Anticipated Length of Stay: Reassess in one week (Dr. Mandel will be contacted to see whether there can be any touch toe weightbearing. If not, patient may be transferred to skilled care.)
[2017-05-23] MEDS: Verapamil SR 120 MG TABLET (12Hr) PO SCH (20:06)
[2017-05-23] MEDS: ENOXAPARIN 40 MG/0.4 ML INJECTION SQ SCH (20:07)
[2017-05-24] MEDS: PANTOPRAZOLE 40 MG TABLET PO SCH (06:03)
[2017-05-24] MEDS: LEVOTHYROXINE 50 MCG TABLET PO SCH (06:03)
[2017-05-24] MEDS: HYDROCODONE/APAP 5mg/325mg TABLET PO PRN ×2 (06:03→20:58)
--- NOTE | 2017-05-24 08:01 | Orthopedic Progress Note ---
Date: Subjective/Severity of Illness: Angeles has no new complaints. Orthopedic Objective PO Vital signs: Temperature 98.5 F 05/24/17 06:00 Pulse Rate 59 L 05/24/17 06:00 Respiratory Rate 18 05/24/17 06:00 Blood Pressure 137/55 05/24/17 06:00 Pulse Oximetry 93 05/24/17 06:00 Height and Weight: Height 5 ft 4 in Weight 194 lb 3.636 oz Body Mass Index 34.9 - Constitutional General Appearance: Present: alert, orientated x3 - Respiratory Exam Present: non-labored - Cardiovascular Exam Present: pedal pulses intact Capillary Refill: < 2-3 Seconds - Abdominal Exam Absent: tenderness - Extremities Exam Extremities: Present: pulses intact - Knee Exam Knee Exam: Present: tender along joint line - Hip Exam Hip Exam: Present: decreased ROM (felxion), decreased ROM (rotation). Absent: abnormal rotation - Surgical Site Incision: clean, dry, intact, no drainage - Integumentary Exam Present: pink, warm, dry, intact - Lymphatic Lymphatic: Absent: adenopathy - Neurological Exam Present: intact to light touch, no deficits - Psychiatric Exam Present: normal affect - Wound Management Left Knee Wound Type: Surgical Incision - Labs Result Diagrams: 05/22/17 04:02 05/22/17 04:02 H & H 05/16/17 05/17/17 05/19/17 Range/Units 04:41 04:31 04:32 Hgb 9.8 L 9.2 L 9.0 L (12-16) GM/DL Hct 29.9 L 28.8 L 28.0 L (36-46) % 05/22/17 Range/Units 04:02 Hgb 9.1 L (12-16) GM/DL Hct 28.8 L (36-46) % - Diagnostic results Knee x-ray: image reviewed (lateral tibial plateau fracture noted with interval settling of the joint surface.) Orthopedic Assessment and Plan (1) Closed fracture of lateral portion of left tibial plateau Status: Acute Qualifiers: Encounter type: subsequent encounter Assessment and Plan: Angeles will need to be Non weight bearing for 6 weeks. She will need to complete a 30 day course of Lovenox 40mg SQ Q day for DVT prevention. Her last day of treatment will be 06/11/17. Her CPM can be increased as of 05/26/17 to 0-70. She will need to discharge with the CPM. On 06/09/17 her CPM can be set 0-90 as tolerated. Her goal ROM is 0-90 by 6 weeks post op. New X-rays have been reviewed with Dr. Mandel which show interval settling of the lateral joint surface s/p ORIF of the lateral tibial plateau fracture. If she stays in the community for further care she will need a 1 week follow up with Mayito FRANKS. - Anticoagulation Therapy Anticoagulation: Lovenox 40 mg SQ Daily x 30 days from day of surgery Hospital Course Summary Disclaimer: The visit summary below is not to be considered part of the above Progress Note. Hospital Course: 05/16/17: [place]. Consult. Assessment S/P Left ORIF secondary to tibial plateau fracture, acute. Hyponatremia, present on admission, acute. Hypokalemia, acute. Anemia, present on admission, acute. UTI, E. coli ESBL, present on admission, acute. Hypertension, chronic. Hypothyroidism, chronic. Obesity with BMI 30-35, chronic. History of 1st degree AV block, chronic. Constipation, acute on chronic. Plan Agree with admission to IRU for continuation of intensive therapy and pain control for improvement in functional ability and strength. S/P ORIF by Dr. Mandel on 05/12 for left tibial plateau fracture. Maintain immobilization and non-weight bearing to left lower extremity. Recommend follow -up with orthopedist at home in [place] upon return for surgical follow up. Pain control per Dr. Harrell. Encourage bowel motivation with Miralax, MOM and senna plus. Blood pressures elevate since admission to IRU. Will continue to monitor closely. Continue home Losartan and verapamil. Continue diuresis with Lasix 40mg daily. Monitor daily weight closely. Will place on 1800cc fluid restriction in light of hyponatremia and repeat BMP in AM to monitor electrolytes and renal function. Hypokalemia noted with potassium at 3.2. Will given additional 40 mEq po now and recheck in AM. Continue scheduled KCl 20 mEq TID. Continue Lovenox for DVT prophylaxis and Protonix for GERD and GI protection. Hemoglobin stable and trending up at 9.8. Will continue to monitor periodically throughout admission. Continue Macrobid BId for E.coli ESBL. Treatment to be complete 05/21. Encourage follow up as outpatient regarding recent UTI. Monitor closely for signs of urinary retention and signs of infection. TSH stable on admission at 2.50. Continue home Synthroid. Monitor as out patient. Continue to provide safe and supportive environment. Upon discharge, patient's care will be returned to her PCP. Appreciate the opportunity to participate in Mrs. Garibay's care. Feel free to call with any questions or concern [phone]. 05/21/17- Plan Persistent hyponatremia- NA 132 today. Will decreased fluid restriction to 1500ml/24hr Continue with Lasix for diuresis and potassium supplementation Continue Macrobid until 05/21 for tx of UTI. Continue Lovenox for DVT prevention Encourage ongoing work with PT and OT for strengthening 05/21/17 16:29 Slow recovery, but is making gains. She is worried about how to get home to [place]. Medical flights are cost prohibitive. She is hoping to [place] fluid restriction. Will liberalize to 1800ml. Recheck sodium in AM. She is reporting loose stool. DC laxative, add cholestyramine. If no improvement, check stool panel. She is afebrile, no abdominal pain reported. BP is fairly well controlled. Some random mild elevations- monitor. s/p treatment for E.Coli. She does have GERD and is on chronic PPI therapy at home. Repeat labs in AM. Pt is hoping to return home, but will need assistance with flight. Could consider contacting [employer] for donated flight home. She may need a person to travel with her to assist with needs. [employer]: Call toll free: [phone] Email: [email or web address]
[2017-05-24] MEDS: FUROSEMIDE 20 MG TABLET PO SCH (09:11)
[2017-05-24] MEDS: LOSARTAN 100 MG TABLET PO SCH (09:12)
--- NOTE | 2017-05-24 10:13 | XRay Report ---
Indication: post op follow up PROCEDURE: XR knee LT 2V: Encounter: Initial Comparison: Fluoroscopy dated May 12, 2017 Findings: Internally fixed lateral tibial plateau fracture is again noted. There is depression of the lateral tibial articular surface that appears slightly more pronounced than the intraoperative fluoroscopy allowing for differences in positioning. No evidence of hardware loosening. No new fracture or dislocation. Impression: Apparent slight increase in depression of the lateral tibial plateau. .
--- NOTE | 2017-05-24 12:03 | IRU Progress Note ---
- Subjective/Serverity of Illness Patient was seen by TINY Ramírez with Dr. Mandel. Healing appears to be appropriate at this time based on radiograph and clinically. CPM distance has been increased 0-70 degrees. Pain is more well controlled with the higher dose of hydrocodone 7.5 mg last night. She is able to get by with the 5 mg during the daytime. She is to be nonweightbearing for 6 weeks. Enoxaparin will be given through June 11. If she stays local she will need to see Mayito in follow-up in about a week or so. Discussed with her the issue of placement. She recognizes that she is unable to travel via airplane to get back home. We are recommending skilled care at this time and arrangements are being looked into. Final decision is pending. Her loose stools have improved. She denies any urinary incontinence or dysuria/ frequency. Update on medical issues as follows: 1. Hypertension: Overall her blood pressures are improved in the 130-135 range. Likely improved pain control has been of assistance in this regard. We will continue current medications. 2. Anemia: Hemoglobin is stable and we have not repeated this for the last couple of days. Last value was on May 22. 3. Possible syncope/seizure: I do not believe she truly has syncope nor seizure upon further description from the patient's . 4. Hyponatremia: She is tolerating fluid restriction adequately. Her sodium is stable. 5. Hypokalemia: Potassium normal at the last measurement. 6. UTI with ESBL: Specifically denies any dysuria or frequency. Exam Vital Signs: Temperature 98.0 F 05/24/17 08:00 Pulse Rate 56 L 05/24/17 08:00 Respiratory Rate 20 05/24/17 08:00 Blood Pressure 149/67 H 05/24/17 08:00 Pulse Oximetry 90 05/24/17 08:00 Height/Weight/BMI: Height 1.63 m Weight 91.7 kg Body Mass Index 34.9 Comments: The patient is awake, alert and oriented and in no acute distress. Pupils are equal. The neck is supple. Chest: Clear to auscultation bilaterally. Cor: RR with no gallop, click nor murmur Abd: soft with normo-active bowel sounds. There are no masses, no tenderness and no guarding. Extremities: No edema is present Results IRU - Labs Labs: Reviewed radiograph and Mayito's note as well as current vital signs etc. IRU A/P (1) Closed fracture of lateral portion of left tibial plateau Qualifiers: Encounter type: subsequent encounter Current visit: No Status: Acute Fracture appears to be healing adequately. Appreciate orthopedist input. We will continue Lovenox through June 11. She will also need to see Mayito in a week or so if she remains local. (2) Benign essential hypertension Current visit: Yes Status: Chronic Blood pressures are doing much better at the present time in the 130 range. (3) Hyponatremia Current visit: Yes Status: Resolved (4) Hypokalemia Current visit: Yes Status: Resolved (5) Acute blood loss anemia Current visit: Yes Status: Acute (6) UTI due to extended-spectrum beta lactamase (ESBL) producing Escherichia coli Current visit: Yes Status: Resolved (7) Syncope Qualifiers: Syncope type: unspecified Qualified Code(s): R55 - Syncope and collapse Current visit: Yes Status: Resolved (8) Constipation by delayed colonic transit Current visit: Yes Status: Resolved DVT Prophylaxis: Lovenox Resuscitation Status: Full Code - Course Hospital Course: Piter Harrell MD: 05/17/17 10:28 She has had a further drop in her sodium down to 132. She reports it is been as low as 112 several years ago when she had back pain. Denies any nausea or vomiting. She is on a fluid restriction. Her potassium has normalized. Pain is adequately controlled. She is working with therapies. Does have some constipation and we will make sure she gets MiraLAX daily. 05/19/17 11:48 Sodium slightly improved at 133. She is tolerating the fluid restriction adequate. Potassium remains normal eyes. Pain is adequately controlled. She is having bowel movements. She is working well with therapy and is improving. 05/22/17 10:55 She is improving with therapy. She has decided to stay here for the time being due to difficulty with transportation back to [place]. She is especially improving regarding lower body dressing and transfers. Pain is adequately controlled and she would like a lower dose of [place]. Has developed some loose stools but these are better since the stool softeners etc. have been discontinued. Sodium is improved at 135. Fluid restriction liberalized. 05/23/17 09:51 She is improving with upper and lower body dressings. Pain control at nighttime is suboptimal. Blood pressures remain borderline elevated. Remaining on fluid restriction at 1800 cc/24 hours 05/24/17 12:44 Radiograph of left knee obtained. TINY Ramírez saw patient. Comments noted. Blood pressures are improved. Patient will likely need skilled care locally. - Interventions to Obtain Goals PT Treatment Plan: Balance/Proprioception, CPM, Functional Activities, Gait Training, Patient/Family Education, Therapeutic Exercise OT Treatment Plan: ADL (Basic Care), Pt./Family Education Goals Progress/Modifications: Time spent with patient and on floor reviewing data and documentin minutes Barriers to dismissal: Transfers, and confidence Medical decision-making: We will not change blood pressure medications at present in view of improved blood pressures. Discussed dismissal/transfer of patient and questions addressed.
[2017-05-24] MEDS: Verapamil SR 120 MG TABLET (12Hr) PO SCH (20:58)
[2017-05-24] MEDS: ENOXAPARIN 40 MG/0.4 ML INJECTION SQ SCH (20:59)
[2017-05-25] MEDS: PANTOPRAZOLE 40 MG TABLET PO SCH (06:23)
[2017-05-25] MEDS: LEVOTHYROXINE 50 MCG TABLET PO SCH (06:23)
[2017-05-25] MEDS: FUROSEMIDE 20 MG TABLET PO SCH (08:38)
[2017-05-25] MEDS: LOSARTAN 100 MG TABLET PO SCH (08:39)
--- NOTE | 2017-05-25 11:24 | IRU Progress Note ---
- Subjective/Serverity of Illness Pat was evaluated in her room with her present. In addition Grace from case management was present. We discussed her situation. She is making progress with therapy. We have discussed the case also with Sarah from physical therapy and she continues to make progress. CPM has increased the degrees of bending and there is some additional heel touch capability. Pain is adequately controlled at present. Her bowels continue to be a bit loose. Her appetite is good. Review of her blood pressures once again shows that they are a bit elevated. Exam Vital Signs: Temperature 97.3 F 05/25/17 09:00 Pulse Rate 64 05/25/17 09:00 Respiratory Rate 18 05/25/17 09:00 Blood Pressure 150/85 H 05/25/17 09:00 Pulse Oximetry 97 05/25/17 09:00 Height/Weight/BMI: Height 1.63 m Weight 91.7 kg Body Mass Index 34.9 Comments: The patient is awake, alert and oriented and in no acute distress. Pupils are equal. The neck is supple. Chest: Clear to auscultation bilaterally. Cor: RR with no gallop, click nor murmur Abd: soft with normo-active bowel sounds. There are no masses, no tenderness and no guarding. Extremities: No edema is noted. IRU A/P (1) Closed fracture of lateral portion of left tibial plateau Qualifiers: Encounter type: subsequent encounter Current visit: No Status: Acute Pain control is adequate at present. She continues to make progress with physical therapy and occupational therapy. Doing well with transfers with a transfer board. (2) Benign essential hypertension Current visit: Yes Status: Chronic Blood pressures are borderline elevated. However she is somewhat anxious about the upcoming transfer to skilled care. (3) Hyponatremia Current visit: Yes Status: Resolved (4) Hypokalemia Current visit: Yes Status: Resolved (5) Acute blood loss anemia Current visit: Yes Status: Acute (6) UTI due to extended-spectrum beta lactamase (ESBL) producing Escherichia coli Current visit: Yes Status: Resolved (7) Syncope Qualifiers: Syncope type: unspecified Qualified Code(s): R55 - Syncope and collapse Current visit: Yes Status: Resolved (8) Constipation by delayed colonic transit Current visit: Yes Status: Resolved DVT Prophylaxis: Lovenox Resuscitation Status: Full Code - Course Hospital Course: Piter Harrell MD: 05/17/17 10:28 She has had a further drop in her sodium down to 132. She reports it is been as low as 112 several years ago when she had back pain. Denies any nausea or vomiting. She is on a fluid restriction. Her potassium has normalized. Pain is adequately controlled. She is working with therapies. Does have some constipation and we will make sure she gets MiraLAX daily. 05/19/17 11:48 Sodium slightly improved at 133. She is tolerating the fluid restriction adequate. Potassium remains normal eyes. Pain is adequately controlled. She is having bowel movements. She is working well with therapy and is improving. 05/22/17 10:55 She is improving with therapy. She has decided to stay here for the time being due to difficulty with transportation back to [place]. She is especially improving regarding lower body dressing and transfers. Pain is adequately controlled and she would like a lower dose of [place]. Has developed some loose stools but these are better since the stool softeners etc. have been discontinued. Sodium is improved at 135. Fluid restriction liberalized. 05/23/17 09:51 She is improving with upper and lower body dressings. Pain control at nighttime is suboptimal. Blood pressures remain borderline elevated. Remaining on fluid restriction at 1800 cc/24 hours 05/24/17 12:44 Radiograph of left knee obtained. TINY Ramírez saw patient. Comments noted. Blood pressures are improved. Patient will likely need skilled care locally. 05/25/17 11:23 She is minimal assistance to standby assistance with most activities for ADLs. She is making progress with physical therapy. We will continue working with her tomorrow and Monday. Anticipate dismissal to intermediate on Monday. - Interventions to Obtain Goals PT Treatment Plan: Balance/Proprioception, CPM, Functional Activities, Gait Training, Patient/Family Education, Therapeutic Exercise OT Treatment Plan: ADL (Basic Care), Pt./Family Education Goals Progress/Modifications: Time spent with patient and on floor reviewing data and documentin min Barriers to dismissal: Limitation in weightbearing to left leg, endurance, confidence Medical decision-making: Have reviewed therapy notes and discussed with physical therapy. Also reviewed recent laboratory and progress notes etc. Spent an extended time discussing with her and with the patient regarding placement. It is not feasible for her to go to [place] via airplane due to transfer difficulty. Her wondered about putting a Lr catheter in. I told him it was not best practice and we did not recommend that because of risk of infection. I think the best course would be to pursue intermediate locally and arrangements have been made in this regard. We will continue working with the patient and anticipate dismissal on Monday.
--- NOTE | 2017-05-25 15:38 | Progress Note ---
<Sandra Parkinson V - Last Filed: 05/25/17 15:35> Subjective: Angeles is seen today follow up doing exercises in bed with PT. She reports overall she is feeling good. She does report that she has had 3 stools today. However, this has greatly improved today. Overall feels that she is getting stronger. Objective Vital signs: Temperature 97.3 F 05/25/17 09:00 Pulse Rate 64 05/25/17 09:00 Respiratory Rate 18 05/25/17 09:00 Blood Pressure 150/85 H 05/25/17 09:00 Pulse Oximetry 97 05/25/17 09:00 Height/Weight/BMI: Height 1.63 m Weight 91.7 kg Body Mass Index 34.9 - Constitutional Present: no acute distress, well nourished, well developed - Routine HEENT Exam Eye: Present: EOMI ENT: Present: mucous membranes moist, dentition normal - Routine Respiratory Exam Present: CTA bilaterally. Absent: wheezes - Routine Cardiovascular Exam Present: RRR, S1, S2. Absent: murmur - Routine Abdominal Exam Present: soft, normoactive bowel sounds, non distended. Absent: tenderness - Routine Extremities Exam Present: normal capillary refill Comments: Cam walker to LLE - Routine Skin Exam Present: intact, dry, warm - Routine Neurological Exam Present: alert, oriented X3, CN II-XII intact - Routine Lymphatic Exam Lymphatic: Absent: adenopathy - Routine Psychiatric Exam Present: normal affect Results - Labs CBC & Chem 7: 05/22/17 04:02 05/22/17 04:02 Assessment and Plan (1) Closed fracture of lateral portion of left tibial plateau Current visit: No Status: Acute Assessment and Plan: Assessment S/P Left ORIF secondary to tibial plateau fracture, acute. Hyponatremia, present on admission, acute. Hypokalemia, acute. Anemia, present on admission, acute. UTI, E. coli ESBL, present on admission-resolved Hypertension, chronic. Hypothyroidism, chronic. Obesity with BMI 30-35, chronic. History of 1st degree AV block, chronic. Constipation, acute on chronic. 05/25- Plan: Frequent stools are formed and decreasing in quainty. Continue to monitor Recheck BMP tomorrow morning to evaluate renal function and electrolytes. Remains on fluid restriction 1800 ML of day Continue [place] for pain control In 10 used to make good gains with therapy Planning to discharge on Monday either to [place] via private flight or [facility] for [facility] Hospital Course Summary Disclaimer: The visit summary below is not to be considered part of the above Progress Note. Hospital Course: 05/16/17: [place]. Consult. Assessment S/P Left ORIF secondary to tibial plateau fracture, acute. Hyponatremia, present on admission, acute. Hypokalemia, acute. Anemia, present on admission, acute. UTI, E. coli ESBL, present on admission, acute. Hypertension, chronic. Hypothyroidism, chronic. Obesity with BMI 30-35, chronic. History of 1st degree AV block, chronic. Constipation, acute on chronic. Plan Agree with admission to IRU for continuation of intensive therapy and pain control for improvement in functional ability and strength. S/P ORIF by Dr. Mandel on 05/12 for left tibial plateau fracture. Maintain immobilization and non-weight bearing to left lower extremity. Recommend follow -up with orthopedist at home in [place] upon return for surgical follow up. Pain control per Dr. Harrell. Encourage bowel motivation with Miralax, MOM and senna plus. Blood pressures elevate since admission to IRU. Will continue to monitor closely. Continue home Losartan and verapamil. Continue diuresis with Lasix 40mg daily. Monitor daily weight closely. Will place on 1800cc fluid restriction in light of hyponatremia and repeat BMP in AM to monitor electrolytes and renal function. Hypokalemia noted with potassium at 3.2. Will given additional 40 mEq po now and recheck in AM. Continue scheduled KCl 20 mEq TID. Continue Lovenox for DVT prophylaxis and Protonix for GERD and GI protection. Hemoglobin stable and trending up at 9.8. Will continue to monitor periodically throughout admission. Continue Macrobid BId for E.coli ESBL. Treatment to be complete 05/21. Encourage follow up as outpatient regarding recent UTI. Monitor closely for signs of urinary retention and signs of infection. TSH stable on admission at 2.50. Continue home Synthroid. Monitor as out patient. Continue to provide safe and supportive environment. Upon discharge, patient's care will be returned to her PCP. Appreciate the opportunity to participate in Mrs. Garibay's care. Feel free to call with any questions or concern [phone]. 05/21/17- Plan Persistent hyponatremia- NA 132 today. Will decreased fluid restriction to 1500ml/24hr Continue with Lasix for diuresis and potassium supplementation Continue Macrobid until 05/21 for tx of UTI. Continue Lovenox for DVT prevention Encourage ongoing work with PT and OT for strengthening 05/21/17 16:29 Slow recovery, but is making gains. She is worried about how to get home to [place]. Medical flights are cost prohibitive. She is hoping to [place] fluid restriction. Will liberalize to 1800ml. Recheck sodium in AM. She is reporting loose stool. DC laxative, add cholestyramine. If no improvement, check stool panel. She is afebrile, no abdominal pain reported. BP is fairly well controlled. Some random mild elevations- monitor. s/p treatment for E.Coli. She does have GERD and is on chronic PPI therapy at home. Repeat labs in AM. Pt is hoping to return home, but will need assistance with flight. Could consider contacting [employer] for donated flight home. She may need a person to travel with her to assist with needs. [employer]: Call toll free: [phone] Email: [email or web address] 05/25- Plan: Frequent stools are formed and decreasing in quainty. Continue to monitor Recheck BMP tomorrow morning to evaluate renal function and electrolytes. Remains on fluid restriction 1800 ML of day Continue [place] for pain control In 10 used to make good gains with therapy Planning to discharge on Monday either to [place] via private flight or [facility] for skilled <Erasmo Eisenberg - Last Filed: 05/25/17 18:19> Objective Vital signs: Temperature 98.3 F 05/25/17 16:37 Pulse Rate 61 05/25/17 16:37 Respiratory Rate 20 05/25/17 16:37 Blood Pressure 152/71 H 05/25/17 16:37 Pulse Oximetry 96 05/25/17 16:37 Height/Weight/BMI: Height 1.63 m Weight 91.7 kg Body Mass Index 34.9 Results - Labs CBC & Chem 7: 05/22/17 04:02 05/22/17 04:02 Assessment and Plan (1) Closed fracture of lateral portion of left tibial plateau Current visit: No Status: Acute Assessment and Plan: Assessment S/P Left ORIF secondary to tibial plateau fracture, acute. Hyponatremia, present on admission, acute. Hypokalemia, acute. Anemia, present on admission, acute. UTI, E. coli ESBL, present on admission-resolved Hypertension, chronic. Hypothyroidism, chronic. Obesity with BMI 30-35, chronic. History of 1st degree AV block, chronic. Constipation, acute on chronic. Have independently interviewed and examined pt. Chart reviewed. Case discussed with my SOLARIS ADMINISTRATOR. Above care plan developed with my supervision; agree with above. Tolerating therapy well-making gains in strength and stability. Breathing well. Eating well. Stools more frequent. No ab pain or nausea. Lungs: decreased, no distress CV: regular MSE: awake alert appropriate Plan: Questran to help stools. No routine laxatives orders (current meds are prn ). Encourage continued therapy. Medically stable for IRU floor activities. Hospital Course Summary Disclaimer: The visit summary below is not to be considered part of the above Progress Note.
[2017-05-25] MEDS: Verapamil SR 120 MG TABLET (12Hr) PO SCH (21:28)
[2017-05-25] MEDS: ENOXAPARIN 40 MG/0.4 ML INJECTION SQ SCH (21:29)
[2017-05-25] MEDS: HYDROCODONE/APAP 5mg/325mg TABLET PO PRN (23:18)
[2017-05-26] MEDS: HYDROCODONE/APAP 5mg/325mg TABLET PO PRN ×2 (05:15→22:26)
[2017-05-26] MEDS: PANTOPRAZOLE 40 MG TABLET PO SCH ×2 (05:15→06:16)
[2017-05-26] MEDS: LEVOTHYROXINE 50 MCG TABLET PO SCH ×2 (05:16→06:16)
[2017-05-26] MEDS: FUROSEMIDE 20 MG TABLET PO SCH (08:30)
[2017-05-26] MEDS: LOSARTAN 100 MG TABLET PO SCH (08:30)
[2017-05-26] MEDS: ENOXAPARIN 40 MG/0.4 ML INJECTION SQ SCH (22:25)
[2017-05-26] MEDS: Verapamil SR 120 MG TABLET (12Hr) PO SCH (22:26)
[2017-05-27] MEDS: PANTOPRAZOLE 40 MG TABLET PO SCH (05:32)
[2017-05-27] MEDS: LEVOTHYROXINE 50 MCG TABLET PO SCH (05:32)
[2017-05-27] MEDS: LOSARTAN 100 MG TABLET PO SCH (09:57)
[2017-05-27] MEDS: FUROSEMIDE 20 MG TABLET PO SCH (09:57)
[2017-05-27] MEDS ORDERED: FALL RISK - PHARMACY CONSULT XX ONE (11:01)
[2017-05-27] MEDS: Verapamil SR 120 MG TABLET (12Hr) PO SCH (21:18)
[2017-05-27] MEDS: HYDROCODONE/APAP 5mg/325mg TABLET PO PRN (21:18)
[2017-05-27] MEDS: ENOXAPARIN 40 MG/0.4 ML INJECTION SQ SCH (21:26)
[2017-05-28] MEDS: LEVOTHYROXINE 50 MCG TABLET PO SCH (06:59)
[2017-05-28] MEDS: PANTOPRAZOLE 40 MG TABLET PO SCH (06:59)
[2017-05-28] MEDS: LOSARTAN 100 MG TABLET PO SCH (09:12)
[2017-05-28] MEDS: FUROSEMIDE 20 MG TABLET PO SCH (09:13)
[2017-05-28] MEDS: Verapamil SR 120 MG TABLET (12Hr) PO SCH (20:29)
[2017-05-28] MEDS: HYDROCODONE/APAP 5mg/325mg TABLET PO PRN (20:29)
[2017-05-28] MEDS: ENOXAPARIN 40 MG/0.4 ML INJECTION SQ SCH (20:32)
[2017-05-28 22:30] VITALS: O2SAT 92
[2017-05-29] MEDS: HYDROCODONE/APAP 5mg/325mg TABLET PO PRN ×2 (02:53→11:09)
[2017-05-29] MEDS: LEVOTHYROXINE 50 MCG TABLET PO SCH (05:46)
[2017-05-29] MEDS: PANTOPRAZOLE 40 MG TABLET PO SCH (05:47)
--- NOTE | 2017-05-29 08:14 | Discharge Instructions ---
Discharge Plan - Med Rec/Dispo Referrals/Follow Up: Mayito Rivas PA [Physician Lan/Wan Engineer] - (TINY Ramírez on 06/08/17 at 9:30 am for Post-Op follow-up. [address] [place] [address] Follow-up with your PCP in [place]. ) Additional Instructions: Will need to continue with Lovenox 40 mg SQ daily until 06/12/17 Prescriptions: New Cholestyramine/Aspartame [Cholestyramine Light Packet] 4 g PO Q6H PRN powd.pack PRN Reason: Diarrhea Potassium Chloride [K-Dur] 20 meq PO BIDWM tablet Furosemide [Lasix] 40 mg PO DAILY tablet Acetaminophen [Tylenol] 650 mg PO Q5H PRN tablet PRN Reason: Discomfort Milk of Magnesia [Mom] 30 ml PO DAILY PRN udc PRN Reason: Constipation Continue Omeprazole [Prilosec] 20 mg PO DAILY Verapamil HCl [Verapamil ER Pm] 300 mg PO HS Losartan [Cozaar] 100 mg PO DAILY Acetaminophen [Tylenol] 650 mg PO Q5H PRN tablet PRN Reason: Discomfort Bisacodyl Supp [Dulcolax] 10 mg RECTALLY DAILY PRN supp PRN Reason: Constipation Enoxaparin Sodium [Lovenox] 40 mg SQ Q24H 14 Days #0 syringe Levothyroxine Sodium 50 mcg PO DAILY Senna + Docusate [Senna Plus Tablet] 1 tab PO BID tablet Discontinued Furosemide [Lasix] 20 mg PO DAILY Nitrofurantoin. [Macrobid] 100 mg PO BIDWM capsule Potassium Chloride [K-Dur] 20 meq PO TIDWM tablet No Action Hydrocodone/APAP 7.5/325 [[place] 7.5/325] 1 - 2 tab PO Q6H PRN tablet PRN Reason: Pain
[2017-05-29] MEDS: LOSARTAN 100 MG TABLET PO SCH (08:47)
[2017-05-29] MEDS: FUROSEMIDE 20 MG TABLET PO SCH (08:47)
[2017-05-29 09:20] VITALS: BP 125/69; PULSE 60; RESP 16; TEMP 97.1
--- NOTE | 2017-05-29 09:46 | Discharge Instructions ---
Discharge Plan - Med Rec/Dispo Referrals/Follow Up: Mayito Rivas PA [Physician Artist Agent] - (TINY Ramírez on 06/08/17 at 9:30 am for Post-Op follow-up. [address] [place] [address] Follow-up with your PCP in [place]. ) Additional Instructions: Will need to continue with Lovenox 40 mg SQ daily until 06/12/17 Prescriptions: New Cholestyramine/Aspartame [Cholestyramine Light Packet] 4 g PO Q6H PRN powd.pack PRN Reason: Diarrhea Potassium Chloride [K-Dur] 20 meq PO BIDWM tablet Furosemide [Lasix] 40 mg PO DAILY tablet Acetaminophen [Tylenol] 650 mg PO Q5H PRN tablet PRN Reason: Discomfort Milk of Magnesia [Mom] 30 ml PO DAILY PRN udc PRN Reason: Constipation Hydrocodone/APAP 5/325 [[place] 5/325] 1 tab PO Q4H PRN #30 tablet PRN Reason: Pain Continue Omeprazole [Prilosec] 20 mg PO DAILY Verapamil HCl [Verapamil ER Pm] 300 mg PO HS Losartan [Cozaar] 100 mg PO DAILY Acetaminophen [Tylenol] 650 mg PO Q5H PRN tablet PRN Reason: Discomfort Bisacodyl Supp [Dulcolax] 10 mg RECTALLY DAILY PRN supp PRN Reason: Constipation Enoxaparin Sodium [Lovenox] 40 mg SQ Q24H 14 Days #0 syringe Levothyroxine Sodium 50 mcg PO DAILY Senna + Docusate [Senna Plus Tablet] 1 tab PO BID tablet Discontinued Furosemide [Lasix] 20 mg PO DAILY Nitrofurantoin. [Macrobid] 100 mg PO BIDWM capsule Potassium Chloride [K-Dur] 20 meq PO TIDWM tablet No Action Hydrocodone/APAP 7.5/325 [[place] 7.5/325] 1 - 2 tab PO Q6H PRN tablet PRN Reason: Pain Discharge Instructions/Outpatient Orders: Final Provider Discharge Instructions Location: Determined By Patient - Disposition 03 To [facility] Not [facility] [place])
--- NOTE | 2017-05-29 09:52 | Extended Care Facility Orders ---
Admission Orders Admit to:: Alf Allergies/Adverse Reactions: Allergies amoxicillin Allergy (Verified 05/10/17 07:26) Rash Sulfa (Sulfonamide Antibiotics) Allergy (Verified 05/10/17 07:26) Rash Iodinated Contrast- Oral and IV Dye Adverse Reaction (Unknown, Verified 09:18) Nausea and Vomiting Admitting Diagnosis: Status OR IF of Left Tibia Admitting Physician: Piter Harrell MD Attending Physician: Piter Harrell MD Code Status: Full Code Anticiapted Length of Stay: 30 days or less Rehab Potential: fair Rehab Prognosis: fair Diet: 05/15/17 Dinner Regular Diet [DIET] Diet Modifications: Fluid Restriction: FR 1800ML Wound/Incision Care: Dressing changes daily or as needed May use Facility Protocol or Standing Orders: Yes May have flu vaccine: Yes Evaluations/Treatment: PT, OT Alf Certification: I certify that SNF services are required to be given on an Inpatient basis because of the patients need for senior living care on a continuing basis for the condition(s) for which he/she received inpatient hospital services prior to his/her transfer to the SNF. SNF inpatient care is necessary for the following reasons: monitor wound healing, administration of Lovenox, work on transfers, endurance, strengthening, wheel chair propulsion, ADLs. Indication for Alf: Wound Care/Assessment - Additional Information In Event of Arrest: Start CPR,call 911,send patient to the ER Resident is Aware of Diagnosis: Yes Referrals: Mayito Rivas PA [Physician Electrical Electronics Technician] - (TINY Ramírez on 06/08/17 at 9:30 am for Post-Op follow-up. [address] [place] [address] Follow-up with your PCP in [place]. ) Additional Orders: Non-weight bearing left leg. Please check with Dr. Mandel or TINY Ramírez for questions regarding the wound or regarding weight bearing or activity allowance
--- NOTE | 2017-05-29 14:17 | IRU Progress Note ---
- Subjective/Serverity of Illness I evaluated the patient in her room today with her present. She is looking forward to progressing and getting on to [facility]. She will continue physical therapy and occupational therapy at that location. Her bowels are much more well formed and controlled. She has no symptoms of UTI. She is eating adequately. She is getting by with only one or two 5 mg hydrocodone daily. Arrangements are made for her to transfer today. Her blood pressures in general are variable but most recently have been 125 systolic. Exam Vital Signs: Temperature 97.1 F 05/29/17 08:00 Pulse Rate 60 05/29/17 08:00 Respiratory Rate 16 05/29/17 08:00 Blood Pressure 125/69 05/29/17 08:00 Pulse Oximetry 92 05/29/17 08:00 Height/Weight/BMI: Height 1.63 m Weight 195.3 kg Body Mass Index 34.9 Comments: The patient is awake, alert and oriented and in no acute distress. Pupils are equal. The neck is supple. Chest: Clear to auscultation bilaterally. Cor: RR with no gallop, click nor murmur Abd: soft with normo-active bowel sounds. There are no masses, no tenderness and no guarding. Extremities: No edema is noted. There are good pulses in both ankles. No cyanosis is present. Results IRU - Labs Labs: Have reviewed hospitalist progress notes and recent labs. IRU A/P (1) Closed fracture of lateral portion of left tibial plateau Qualifiers: Encounter type: subsequent encounter Status: Acute Pain is adequately controlled. She will require continued physical therapy and occupational therapy for progression to independent status. (2) Benign essential hypertension Status: Chronic Her blood pressure appears to be stable. (3) Acute blood loss anemia Status: Acute DVT Prophylaxis: Lovenox Resuscitation Status: Full Code - Course Hospital Course: Piter Harrell MD: 05/17/17 10:28 She has had a further drop in her sodium down to 132. She reports it is been as low as 112 several years ago when she had back pain. Denies any nausea or vomiting. She is on a fluid restriction. Her potassium has normalized. Pain is adequately controlled. She is working with therapies. Does have some constipation and we will make sure she gets MiraLAX daily. 05/19/17 11:48 Sodium slightly improved at 133. She is tolerating the fluid restriction adequate. Potassium remains normal eyes. Pain is adequately controlled. She is having bowel movements. She is working well with therapy and is improving. 05/22/17 10:55 She is improving with therapy. She has decided to stay here for the time being due to difficulty with transportation back to [place]. She is especially improving regarding lower body dressing and transfers. Pain is adequately controlled and she would like a lower dose of [place]. Has developed some loose stools but these are better since the stool softeners etc. have been discontinued. Sodium is improved at 135. Fluid restriction liberalized. 05/23/17 09:51 She is improving with upper and lower body dressings. Pain control at nighttime is suboptimal. Blood pressures remain borderline elevated. Remaining on fluid restriction at 1800 cc/24 hours 05/24/17 12:44 Radiograph of left knee obtained. TINY Ramírez saw patient. Comments noted. Blood pressures are improved. Patient will likely need skilled care locally. 05/25/17 11:23 She is minimal assistance to standby assistance with most activities for ADLs. She is making progress with physical therapy. We will continue working with her tomorrow and Monday. Anticipate dismissal to [facility] on Monday. 05/29/17 14:16 She continues to progress with physical therapy and occupational therapy. [facility]. Discussed with Ap Garrett M.D., medical office coordinator at the [facility] today. - Interventions to Obtain Goals PT Treatment Plan: Balance/Proprioception, CPM, Functional Activities, Gait Training, Patient/Family Education, Therapeutic Exercise OT Treatment Plan: ADL (Basic Care), Pt./Family Education
--- NOTE | 2017-05-29 14:25 | Discharge Summary ---
Discharge Information Date of admission: 05/15/17 15:45 Anticipated date of discharge: 05/29/17 Attending Physician: Piter Harrell MD Consults: 05/15/17 17:09 Physician Consult [CONS] Routine Consulting Provider: Erasmo Eisenberg Reason For Exam: Medical Management Ordering Provider has Notified [facility] Hospice: No 05/23/17 14:42 Physician [Physician Consult] [CONS] Routine Consulting Provider: Sylvester Mandel Reason For Exam: Post ORIF Ordering Provider has Notified [facility] Hosp[facility]: Yes Comment: Mayito Rivas was paged 05/25/17 09:56 Doctor [Physician Consult] [CONS] Routine Consulting Provider: Hanna Prinec Reason For Exam: REVIEW FOR SKILLED Ordering Provider has Notified L[facility] R[facility] Hospice: Yes - Discharge Diagnosis (1) Closed fracture of lateral portion of left tibial plateau Status: Acute Discharge Diagnosis: Closed fracture of lateral portion of left tibial plateau, status post open reduction internal fixation repair (2) Benign essential hypertension Status: Chronic Discharge Diagnosis: Benign essential hypertension (3) Acute blood loss anemia Status: Acute Discharge Diagnosis: Acute blood loss anemia (4) Hyponatremia Status: Resolved Discharge Diagnosis: Hyponatremia, due to syndrome of inappropriate ADH secretion (5) UTI due to extended-spectrum beta lactamase (ESBL) producing Escherichia coli Status: Resolved Discharge Diagnosis: Urinary tract infection - Laboratory Labs: 05/28/17 04:41 05/28/17 04:41 History of Present Illness HPI: 05/29/17 14:24 Angeles is a very nice 76-year-old female. She was visiting here from [place]. She slipped on some water that was at her motel room bathroom. She landed on her left side and sustained a left tibial plateau fracture. She was admitted to the [facility] on 05/10/2017. Dr. Mandel performed open reduction internal fixation of left tibial plateau fracture with bone allograft on 05/12/2017. After she was stabilized on acute care, she was transferred to the acute rehabilitation unit for further therapy. She does have history of hyponatremia and states that during previous hospitalizations she has been quite low on her sodium down around 124. She also has a history of hypertension. Hospital Course This is a general summary of the patient's hospital course. For more details refer to the complete medical record. An individualized program of physical therapy and occupational therapy was designed for this patient. She underwent intensive therapy. From an occupational therapy standpoint she improved as follows: Grooming improved from standby assistance to modified independent functioning. Bathing improved from moderate assistance with a bag bath to minimal assistance. Upper extremity dressing continued at standby assistance level. Lower body dressing improved from maximal assistance to minimal assistance by the time of dismissal. Toileting initially required maximal assistance due to cleansing needs. Subsequently she was at contact-guard assistance level. Toilet transfers were with minimal assistance. Physical therapy also saw the patient and in general improved transfers and wheelchair propulsion. The patient had stabilized while on acute inpatient rehabilitation. However she still required further therapy and she was transferred to skilled care on 2016. From a medical standpoint, her blood pressures were monitored. She was variably elevated from time to time but at times she had adequate control. Her pain was adequately controlled with one or 2 of the 5 mg hydrocodone tablets daily. She did develop a urinary tract infection and this was treated. She did have some loose stools but she did not have evidence of C. difficile colitis. The stools did settle down. She is dismissed in improved condition on 05/29/2017 to [facility]. Hospital course: 05/16/17: [place]. Consult. Assessment S/P Left ORIF secondary to tibial plateau fracture, acute. Hyponatremia, present on admission, acute. Hypokalemia, acute. Anemia, present on admission, acute. UTI, E. coli ESBL, present on admission, acute. Hypertension, chronic. Hypothyroidism, chronic. Obesity with BMI 30-35, chronic. History of 1st degree AV block, chronic. Constipation, acute on chronic. Plan Agree with admission to IRU for continuation of intensive therapy and pain control for improvement in functional ability and strength. S/P ORIF by Dr. Mandel on 05/12 for left tibial plateau fracture. Maintain immobilization and non-weight bearing to left lower extremity. Recommend follow -up with orthopedist at home in [place] upon return for surgical follow up. Pain control per Dr. Harrell. Encourage bowel motivation with Miralax, MOM and senna plus. Blood pressures elevate since admission to IRU. Will continue to monitor closely. Continue home Losartan and verapamil. Continue diuresis with Lasix 40mg daily. Monitor daily weight closely. Will place on 1800cc fluid restriction in light of hyponatremia and repeat BMP in AM to monitor electrolytes and renal function. Hypokalemia noted with potassium at 3.2. Will given additional 40 mEq po now and recheck in AM. Continue scheduled KCl 20 mEq TID. Continue Lovenox for DVT prophylaxis and Protonix for GERD and GI protection. Hemoglobin stable and trending up at 9.8. Will continue to monitor periodically throughout admission. Continue Macrobid BId for E.coli ESBL. Treatment to be complete 05/21. Encourage follow up as outpatient regarding recent UTI. Monitor closely for signs of urinary retention and signs of infection. TSH stable on admission at 2.50. Continue home Synthroid. Monitor as out patient. Continue to provide safe and supportive environment. Upon discharge, patient's care will be returned to her PCP. Appreciate the opportunity to participate in Mrs. Garibay's care. Feel free to call with any questions or concern [phone]. 05/21/17- Plan Persistent hyponatremia- NA 132 today. Will decreased fluid restriction to 1500ml/24hr Continue with Lasix for diuresis and potassium supplementation Continue Macrobid until 05/21 for tx of UTI. Continue Lovenox for DVT prevention Encourage ongoing work with PT and OT for strengthening 05/21/17 16:29 Slow recovery, but is making gains. She is worried about how to get home to [place]. Medical flights are cost prohibitive. She is hoping to [place] fluid restriction. Will liberalize to 1800ml. Recheck sodium in AM. She is reporting loose stool. DC laxative, add cholestyramine. If no improvement, check stool panel. She is afebrile, no abdominal pain reported. BP is fairly well controlled. Some random mild elevations- monitor. s/p treatment for E.Coli. She does have GERD and is on chronic PPI therapy at home. Repeat labs in AM. Pt is hoping to return home, but will need assistance with flight. Could consider contacting [employer] for donated flight home. She may need a person to travel with her to assist with needs. [employer]: Call toll free: [phone] Email: [email or web address] 05/25- Plan: Frequent stools are formed and decreasing in quainty. Continue to monitor Recheck BMP tomorrow morning to evaluate renal function and electrolytes. Remains on fluid restriction 1800 ML of day Continue [place] for pain control In 10 used to make good gains with therapy Planning to discharge on Monday either to [place] via private flight or [facility] Time spent with patient: 25 - 35 minutes Discharge Plan - Med Rec/Dispo Referrals/Follow Up: Mayito Rivas PA [[employer]] - (TINY Ramírez on 06/08/17 at 9:30 am for Post-Op follow-up. [address] [place] [address] Follow-up with your PCP in [place]. ) Additional Instructions: Will need to continue with Lovenox 40 mg SQ daily until 06/12/17 Prescriptions: New Cholestyramine/Aspartame [Cholestyramine Light Packet] 4 g PO Q6H PRN powd.pack PRN Reason: Diarrhea Potassium Chloride [K-Dur] 20 meq PO BIDWM tablet Furosemide [Lasix] 40 mg PO DAILY tablet Acetaminophen [Tylenol] 650 mg PO Q5H PRN tablet PRN Reason: Discomfort Milk of Magnesia [Mom] 30 ml PO DAILY PRN udc PRN Reason: Constipation Hydrocodone/APAP 5/325 [[place] 5/325] 1 tab PO Q4H PRN #30 tablet PRN Reason: Pain Continue Omeprazole [Prilosec] 20 mg PO DAILY Verapamil HCl [Verapamil ER Pm] 300 mg PO HS Losartan [Cozaar] 100 mg PO DAILY Acetaminophen [Tylenol] 650 mg PO Q5H PRN tablet PRN Reason: Discomfort Bisacodyl Supp [Dulcolax] 10 mg RECTALLY DAILY PRN supp PRN Reason: Constipation Enoxaparin Sodium [Lovenox] 40 mg SQ Q24H 14 Days #0 syringe Levothyroxine Sodium 50 mcg PO DAILY Senna + Docusate [Senna Plus Tablet] 1 tab PO BID tablet Discontinued Furosemide [Lasix] 20 mg PO DAILY Nitrofurantoin. [Macrobid] 100 mg PO BIDWM capsule Potassium Chloride [K-Dur] 20 meq PO TIDWM tablet No Action Hydrocodone/APAP 7.5/325 [[place] 7.5/325] 1 - 2 tab PO Q6H PRN tablet PRN Reason: Pain Discharge Instructions/Outpatient Orders: Final Provider Discharge Instructions Location: Determined By Patient - Disposition 03 To [facility] Not [facility] [place] ([facility])
== END 2017-05-29 13:10 | DRG 560 ==
PROVIDERS: ADMIT Internal Medicine; ATTEND Internal Medicine